=== PATIENT | female | born 1970 | race Caucasian/White ===

== ENCOUNTER 2022-12-31 09:54 | Outpatient (OUT) | payer BC, SELFPAY ==
--- NOTE | 2022-12-31 11:09 | MM_ITS ---
Patient: NICOLETTE GARZA Exam Date: 12/31/2022 : 1970 Gender:F Ordering : DR David Worthington . Admission #: [id number] Family : Order #: [id number] CLICK HERE TO VIEW EXAM RADIOLOGY REPORT PROCEDURE: MM TOMOSYNTHESIS SCREENING BI COMPARISON: MG MAMM ELROY SCRN W CAD DIG, 04/27/2015. INDICATIONS: Z12.31 Calculator Name NCI Breast Cancer Risk Assessment Tool 5 Year Breast Cancer Risk 0.60% Lifetime Breast Cancer Risk 6.00% Personal Breast Cancer No Personal Ovarian Cancer No Treatments None Family Cancers Mother with lung cancer at age 60. LOCATION: [facility] BREAST COMPOSITION: Heterogeneously dense,which may obscure small masses. FINDINGS: DIAGNOSTIC CATEGORY 2--BENIGN FINDING. NO CHANGE FROM COMPARISON. Scattered benign-appearing lymph nodes are present. RIGHT BREAST: No significant suspicious finding. LEFT BREAST: No significant suspicious finding. RECOMMENDATIONS: ROUTINE MAMMOGRAM AND CLINICAL EVALUATION IN 12 MONTHS. PLEASE NOTE: A NORMAL MAMMOGRAM DOES NOT EXCLUDE THE POSSIBILITY OF BREAST CANCER. A CLINICALLY SUSPICIOUS PALPABLE LUMP SHOULD BE BIOPSIED. Dictated by: David Beard MD on 12/31/2022 at 13:56 Approved by: David Beard MD on 12/31/2022 at 13:58
[2022-12-31 11:11] LABS: Basophils Absolute Auto 0.1 10^3/uL (0.0-0.1); Basophils Percent Auto 1.6 % (0.2-2.0); Eosinophils Absolute Auto 0.4 10^3/uL (0.0-0.7); Eosinophils Percent Auto 5.9 % (0.9-7.0); Hematocrit 36.7 % (36.0-48.0); Hemoglobin 12.3 g/dL (12.0-16.0); Immature Granulocytes Abs Auto 0.01 10^3/uL (0.00-0.03); Immature Granulocytes Pct Auto 0.1 % (0.0-0.5); Lymphocytes Absolute Auto 2.1 10^3/uL (1.2-3.8); Lymphocytes Percent Auto 29.1 % (20.5-60.0); Mean Corpuscular HGB Conc 33.5 g/dL (29.9-35.2); Mean Corpuscular Hemoglobin 31.7 pg (26.7-34.0); Mean Corpuscular Volume 94.6 fL (81.0-99.0); Mean Platelet Volume 10.7 fL (9.5-13.5); Neutrophils Absolute Auto 3.6 10^3/uL (1.4-6.5); Neutrophils Percent Auto 49.3 % (43.0-75.0); Platelet Count 364 10^3/uL (150-450); Red Blood Count 3.88 10^6/uL (4.20-5.40); Red Cell Distribution Width 15.5 % (11.0-15.0); White Blood Count 7.4 10^3/uL (4.0-11.0)
[2022-12-31 13:54] LABS: Estimated Average Glucose 103 mg/dL; Glycohemoglobin A1C 5.2 % (4.5-6.2)
[2022-12-31 15:31] LABS: Alanine Aminotransferase 16 U/L (14-59); Albumin Level 3.7 g/dL (3.4-5.0); Alkaline Phosphatase 63 U/L (46-116); Anion Gap 11.7; Aspartate Amino Transferase 15 U/L (15-37); BUN Creatinine Ratio 13.5; Bilirubin Total 0.3 mg/dL (0.2-1.0); Calcium 9.1 mg/dL (8.5-10.1); Carbon Dioxide 28.8 mmol/L (21.0-32.0); Chloride 108 mmol/L (98-107); Chol HDL Ratio 2.4; Cholesterol 165 mg/dL (<=200); Estimated GFR (African America >60 (>=60); Estimated GFR (Non-African Ame >60 (>=60); Globulin 3.6 g/dL; Glucose 86 mg/dL (74-106); HDL Cholesterol 68 mg/dL (40-60); Potassium 4.5 mmol/L (3.5-5.1); Sodium 144 mmol/L (136-145); Thyroid Stimulating Hormone 3.477 uIU/mL (0.358-3.740); Total Protein 7.3 g/dL (6.4-8.2); Triglycerides 62 mg/dL (<=150); VLDL CHOLESTEROL 12.4 mg/dL
== END 2022-12-31 09:55 | disposition home or self-care (01) ==
PROVIDERS: PCP Family Medicine; Visit Provider Family Medicine
DX: Z00.00 Encounter for general adult medical examination without abnormal findings (principal); Z12.31 Encounter for screening mammogram for malignant neoplasm of breast; Z80.1 Family history of malignant neoplasm of trachea, bronchus and lung
CPT/HCPCS: 36415; 77063; 77067; 80053; 80061; 83036; 84436; 84443; 84481; 85025

== ENCOUNTER 2023-12-25 10:39 | Outpatient (OUT) | payer BC, SELFPAY ==
[2023-12-25 11:11] LABS: Basophils Absolute Auto 0.1 10^3/uL (0.0-0.1); Basophils Percent Auto 1.4 % (0.2-2.0); Eosinophils Absolute Auto 0.3 10^3/uL (0.0-0.7); Eosinophils Percent Auto 5.8 % (0.9-7.0); Hematocrit 36.1 % (36.0-48.0); Hemoglobin 11.8 g/dL (12.0-16.0); Immature Granulocytes Abs Auto 0.02 10^3/uL (0.00-0.03); Immature Granulocytes Pct Auto 0.4 % (0.0-0.5); Lymphocytes Absolute Auto 2.2 10^3/uL (1.2-3.8); Lymphocytes Percent Auto 39.4 % (20.5-60.0); Mean Corpuscular HGB Conc 32.7 g/dL (29.9-35.2); Mean Corpuscular Hemoglobin 30.4 pg (26.7-34.0); Mean Platelet Volume 9.8 fL (9.5-13.5); Monocytes Absolute Auto 0.9 10^3/uL (0.3-0.8); Monocytes Percent Auto 14.9 % (1.7-12.0); Neutrophils Absolute Auto 2.2 10^3/uL (1.4-6.5); Neutrophils Percent Auto 38.1 % (43.0-75.0); Platelet Count 352 10^3/uL (150-450); Red Blood Count 3.88 10^6/uL (4.20-5.40); Red Cell Distribution Width 15.3 % (11.0-15.0); White Blood Count 5.7 10^3/uL (4.0-11.0)
[2023-12-25 12:04] LABS: Alanine Aminotransferase 14 U/L (14-59); Albumin Globulin Ratio 1.2; Albumin Level 3.8 g/dL (3.4-5.0); Alkaline Phosphatase 70 U/L (46-116); Anion Gap 9.9; Aspartate Amino Transferase 12 U/L (15-37); BUN Creatinine Ratio 15.4; Bilirubin Total 0.5 mg/dL (0.2-1.0); Calcium 9.6 mg/dL (8.5-10.1); Carbon Dioxide 29.6 mmol/L (21.0-32.0); Chloride 107 mmol/L (98-107); Chol HDL Ratio 2.8; Cholesterol 199 mg/dL (<=200); Estimated GFR (African America >60 (>=60); Estimated GFR (Non-African Ame >60 (>=60); Globulin 3.3 g/dL; Glucose 96 mg/dL (74-106); HDL Cholesterol 71 mg/dL (40-60); Potassium 4.5 mmol/L (3.5-5.1); Sodium 142 mmol/L (136-145); Thyroid Stimulating Hormone 2.791 uIU/mL (0.358-3.740); Total Protein 7.1 g/dL (6.4-8.2); Triglycerides 72 mg/dL (<=150); VLDL CHOLESTEROL 14.4 mg/dL
[2023-12-25 12:06] LABS: Estimated Average Glucose 103 mg/dL; Glycohemoglobin A1C 5.2 % (4.5-6.2)
== END 2023-12-25 10:40 | disposition home or self-care (01) ==
PROVIDERS: PCP Family Medicine; Visit Provider Family Medicine
DX: Z00.00 Encounter for general adult medical examination without abnormal findings (principal); R73.09 Other abnormal glucose; Z12.12 Encounter for screening for malignant neoplasm of rectum; D64.9 Anemia, unspecified
CPT/HCPCS: 36415; 80053; 80061; 83036; 83525; 83540; 84436; 84443; 84481; 85025

== ENCOUNTER 2024-03-01 13:36 | Outpatient (OUT) | payer BC, SELFPAY ==
--- OUTSIDE RECORDS SUMMARY | 2024-03-01 13:40 | XMS_ITS | CCD ---
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 Name Role Phone CK RODAS Attending Unavailable CK RODAS Consulting Unavailable ALONDRA, DR BANEGAS Primary Care Unavailable CK RODAS Admitting Unavailable KIKO DIEHL Consulting Unavailable ALONDRA, DR BANEGAS Attending Unavailable ALONDRA, DR BANEGAS Consulting Unavailable ALONDRA, DR BANEGAS Primary Care Unavailable ALONDRA, DR BANEGAS Admitting Unavailable NILL Jessica R Attending Bassam Madison Referring Unavailable Bassam Worthington Primary Care Physician Allergies Allergy Classification Reported Allergen(s) Allergy Type Date of Onset Reaction(s) Facility (1 source) No Known Medication Allergies; Translations: [No Known Medication Allergies] Propensity to adverse reactions (disorder) [facility] Repository (1 source) Adhesive bandage Propensity to adverse reactions to substance Eruption of skin (disorder) [facility] NEGATED: Highlighted row has been ruled out! (1 source) Drug allergy [facility] Medications Current Medications Medication Drug Class(es) Dates Sig (Normalized) Sig (Original) ferrous sulfate 325 mg oral tablet (1 source) Start: 12-24-2023 take 1 tablet by mouth once daily ferrous sulfate 325 mg Tab 325 mg = 1 tab(s), Oral, Daily, Refills(s) 0 Start Date: 12/24/23 Status: Ordered simvastatin 20 mg oral tablet (1 source) HMG-CoA Reductase Inhibitor Start: 01-15-2024 take 1 tablet by mouth once daily in the evening simvastatin 20 mg Tab 20 mg = 1 tab(s), Oral, qPM, Refills(s) 0 Start Date: 01/15/24 Status: Ordered Problems Active Problems Problem Classification Problem Date Documented Date Episodic/Chronic Asthma (1 source) Asthma 01-15-2024 Chronic Deficiency and other anemia (2 sources) Anemia; Translations: [Anemia, unspecified] Onset: 02-09-2024 Episodic Disorders of lipid metabolism (1 source) Hyperlipidemia 01-15-2024 Chronic Headache; including migraine (1 source) Migraine 01-15-2024 Chronic Other nutritional; endocrine; and metabolic disorders (1 source) Overweight 01-15-2024 Episodic Other nutritional; endocrine; and metabolic disorders (1 source) Overweight in adulthood with body mass index of 25 or more but less than 30 02-09-2024 Episodic Other screening for suspected conditions (not mental disorders or infectious disease) (2 sources) Encounter for screening mammogram for malignant neoplasm of breast; Translations: [Screening for malignant neoplasm of colon done] Onset: 12-20-2021 Episodic Spondylosis; intervertebral disc disorders; other back problems (1 source) Degeneration of cervical intervertebral disc 01-15-2024 Chronic Unclassified (1 source) PERSONAL HISTORY OF COVID-19; Translations: [PERSONAL HISTORY OF COVID-19] Onset: 09-24-2021 Unclassified (1 source) Patient encounter status 02-09-2024 Past or Other Problems Problem Classification Problem Date Documented Da te Episodic/Chronic Nonspecific chest pain (1 source) Chest pain, unspecified; Translations: [CHEST PAIN UNSPECIFIED] Onset: 09-24-2021 Episodic Other lower respiratory disease (3 sources) Pleurodynia; Translations: [PLEURODYNIA] Onset: 09-21-2021 Episodic Pleurisy; pneumothorax; pulmonary collapse (1 source) Pleurisy; Translations: [PLEURISY] Onset: 09-24-2021 Episodic Results Test Name Value Interpretation Reference Range Facility Ambulatory Visit Summaryon 1 04-10-2023 Ambulatory Visit Summary Ambulatory Visit Summary NICOLETTE GARZA :1970 Visit Date:02/09/2024 Ambulatory Visit Instructions Your Diagnosis Anemia Screening for malignant neoplasm of colon Your Care Team Attending Physician - Jessica FRY MD Primary Care Physician - Bassam Worthington MD Referring Physician - Bassam Worthington MD This Is Your Medications List Contact prescribing physician if questions or concerns ferrous sulfate (ferrous sulfate 325 mg Tab) simvastatin (simvastatin 20 mg Tab) Procedures Performed History of cervical spine surgery. Discharge Vitals Heart Rate (Peripheral) 72 Respiratory Rate 16 Blood Pressure 124/88 Height 170 cm Height 67 in Weight 86.6 kg Weight 190.52 lb BMI 29.97 Medications What How Much When Instructions Unchanged ferrous sulfate (ferrous sulfate 325 mg Tab) 1 Tablets By Mouth Every day Contact prescribing physician if questions or concerns Unchanged simvastatin (simvastatin 20 mg Tab) 1 Tablets By Mouth Once a day (in the evening) Contact prescribing physician if questions or concerns Allergies Adhesive Bandage (Rash) No Known Medication Allergies Problems Ongoing - Any problem that you are currently receiving treatment for. Anemia Asthma BMI 29.0-29.9,adult Disc disease, degenerative, cervical Hyperlipidemia Migraines Overweight Screening for malignant neoplasm of colon Patient Survey You may receive a survey via text or e-mail asking about your office visit. Please share your experience with us by completing your survey. We appreciate your feedback and thank you for choosing us for your care. Normal [facility] T4, T3U, FTI LABCORPon 12-14 Free Thyroxine Index 2.4 Normal 1.2-4.9 [facility] Comment on above: Performed By: #### T HYLC #### [facility] [address] [place] [address] Dr. Prateek Andre T3 Uptake 26 % Normal 24-39 [facility] Comment on above: Performed By: #### T HYLC #### [facility] [address] [place] [address] Dr. Prateek Andre T4 [Mass/Vol] 9.1 ug/dL Normal 4.5-12.0 [facility] Comment on above: Performed By: #### T HYLC #### [facility] [address] [place] [address] Dr. Prateek Andre CBC AUTO DIFFon 12-13-2021 BASO # 0.1 103/ul Normal 0.0-0.1 [facility] Comment on above: Performed By: #### C BC #### [facility] [address] [place] [address] Dr. Prateek Andre Basophils/100 WBC (Bld) 1.2 % Normal 0.2-2.0 [facility] Comment on above: Performed By: #### C BC #### [facility] [address] [place] [address] Dr. Prateek Andre EO # 0.2 103/ul Normal 0.0-0.7 [facility] Comment on above: Performed By: #### C BC #### [facility] [address] [place] [address] Dr. Prateek Andre Eosinophils/100 WBC (Bld) 3.5 % Normal 0.9-7.0 [facility] Comment on above: Performed By: #### C BC #### [facility] [address] [place] [address] Dr. Prateek Andre Erythrocyte distribution width (RBC) [Ratio] 15.5 % Critically high 11.0-15.0 [facility] Comment on above: Performed By: #### C BC #### [facility] [address] [place] [address] Dr. Prateek Andre Hematocrit (Bld) [Volume fraction] 38.5 % Normal 36.0-48.0 [facility] Comment on above: Performed By: #### C BC #### [facility] [address] [place] [address] Dr. Prateek Andre Hemoglobin (Bld) [Mass/Vol] 12.6 g/dL Normal 12.0-16.0 [facility] Comment on above: Performed By: #### C BC #### [facility] [address] [place] [address] Dr. Prateek Andre IG # 0.04 10e3/ul Critically high 0.00-0.03 [facility] Comment on above: Performed By: #### C BC #### [facility] [address] [place] [address] Dr. Prateek Andre IG % 0.6 % Critically high 0.0-0.5 [facility] Comment on above: Performed By: #### C BC #### [facility] [address] [place] [address] Dr. Prateek Andre LYMPH # 2.2 103/ul Normal 1.2-3.8 [facility] Comment on above: Performed By: #### C BC #### [facility] [address] [place] [address] Dr. Prateek Andre Lymphocytes/100 WBC (Bld) 33.5 % Normal 20.5-60.0 [facility] Comment on above: Performed By: #### C BC #### [facility] [address] [place] [address] Dr. Prateek Andre MANUAL DIFF REQ NO Normal [facility] Comment on above: Performed By: #### C BC #### [facility] [address] [place] [address] Dr. Prateek Andre MCH (RBC) [Entitic mass] 30.7 pg Normal 26.7-34.0 [facility] Comment on above: Performed By: #### C BC #### [facility] [address] [place] [address] Dr. Prateek Andre MCHC (RBC) [Mass/Vol] 32.7 g/dL Normal 29.9-35.2 [facility] Comment on above: Performed By: #### C BC #### [facility] [address] [place] [address] Dr. Prateek Andre MCV (RBC) [Entitic vol] 93.7 fL Normal 81.0-99.0 [facility] Comment on above: Performed By: #### C BC #### [facility] [address] [place] [address] Dr. Prateek Andre MONO # 0.9 103/ul Critically high 0.3-0.8 [facility] Comment on above: Performed By: #### C BC #### [facility] [address] [place] [address] Dr. Prateek Andre Monocytes/100 WBC (Bld) 13.6 % Critically high 1.7-12.0 [facility] Comment on above: Performed By: #### C BC #### [facility] [address] [place] [address] Dr. Prateek Andre NEUT # 3.2 103/ul Normal 1.4-6.5 [facility] Comment on above: Performed By: #### C BC #### [facility] [address] [place] [address] Dr. Prateek Andre Neutrophils/100 WBC (Bld) 47.6 % Normal 43.0-75.0 [facility] Comment on above: Performed By: #### C BC #### [facility] [address] [address] [address] Prateek Andre Platelet mean volume (Bld) [Entitic vol] 9.1 fL Critically low 9.5-13.5 [facility] Comment on above: Performed By: #### C BC #### [facility] [address] [address] [address] Prateek Andre PLT 423 103/ul Normal 150-450 [facility] Comment on above: Performed By: #### C BC #### [facility] [address] [address] [address] Prateek Andre RBC 4.11 106/ul Critically low 4.20-5.40 [facility] Comment on above: Performed By: #### C BC #### [facility] [address] [address] [address] Prateek Andre WBC 6.6 103/ul Normal 4.0-11.0 [facility] Comment on above: Performed By: #### C BC #### [facility] [address] [address] [address] Prateek Andre GLYCOHEMOGLOBIN A1Con 2021 ADA RECOMMENDATION SEE BELOW Normal [facility] Comment on above: Result Comment: ADA RECOMMENDED LIMIT 4.0 - 6.0 ADA THERAPEUTIC TARGET < 7.0 ACTION SUGGESTED > 7.0 Performed By: #### A 1C ####[facility] [id number] [address]Dr. Prateek Andre Glucose [Mass/Vol] 108 mg/dL Normal [facility] Comment on above: Performed By: #### A 1C ####[facility] [id number] [id number]. Prateek Andre HbA1c (Bld) [Mass fraction] 5.4 % Normal 4.5-6.2 [facility] Comment on above: Performed By: #### A 1C ####[facility] [id number] [address]Dr. Prateek Andre LIPID PROFILEon 12-13-2021 CHOL-HDL RATIO NORM SEE BELOW Normal [facility] Comment on above: Result Comment: 3.3 - 4.4 LOW RISK 4.4 - 7.1 AVERAGE RISK 7.1 - 11.0 MODERATE RISK >11.0 HIGH RISK Performed By: #### C MP, LIPID, TSH #### [facility] [address] [address] [address] Prateek Andre Cholesterol [Mass/Vol] 251 mg/dL Critically high <=200 [facility] Comment on above: Performed By: #### C MP, LIPID, TSH #### [facility] [address] [address] [address] Prateek Andre Cholesterol in HDL [Mass/Vol] 78 mg/dL Critically high 40-60 [facility] Comment on above: Performed By: #### C MP, LIPID, TSH #### [facility] [address] [address] [address] Prateek Andre Cholesterol in LDL [Mass/Vol] 165.2 mg/dL Normal [facility] Comment on above: Performed By: #### C MP, LIPID, TSH #### [facility] [address] [address] [address] Prateek Andre Cholesterol.total/Cho lesterol in HDL [Mass ratio] 3.2 {ratio} Normal [facility] Comment on above: Performed By: #### C MP, LIPID, TSH #### [facility] [address] [address] [address] Prateek Andre HDL NORMAL > or = 60 mg/dl - LO W CARDIOVASCULAR RISK <40 mg/dl - HIGH CARDIOVASCULAR RISK Normal [facility] Comment on above: Performed By: #### C MP, LIPID, TSH #### [facility] [address] [address] [address] Prateek Andre LDL CALC NORMAL SEE BELOW Normal [facility] Comment on above: Result Comment: <100 mg/dl OPTIMAL 100 - 129 mg/dl NEAR OR ABOVE OPTIMAL 130 - 159 mg/dl BORDERLINE HIGH 160 - 189 mg/dl HIGH >190 mg/dl VERY HIGH Performed By: #### C MP, LIPID, TSH #### [facility] [address] [place] [address] Dr. Prateek Andre Triglyceride [Mass/Vol] 39 mg/dL Normal <=150 [facility] Comment on above: Performed By: #### C MP, LIPID, TSH #### [facility] [address] [place] [address] Dr. Prateek Andre VLDL CALC 7.8 mg/dL Normal [facility] Comment on above: Performed By: #### C MP, LIPID, TSH #### [facility] [address] [address] [address] Prateek Andre PROF 14(COMP METB)on 022 Albumin [Mass/Vol] 4.0 g/dL Normal 3.4-5.0 [facility] Comment on above: Performed By: #### C MP, LIPID, TSH #### [facility] [address] [place] [address] Dr. Prateek Andre Albumin/Globulin [Mass ratio] 1.1 {ratio} Normal [facility] Comment on above: Performed By: #### C MP, LIPID, TSH #### [facility] [address] [place] [address] Dr. Prateek Andre ALP [Catalytic activity/Vol] 75 U/L Normal 46-116 [facility] Comment on above: Performed By: #### C MP, LIPID, TSH #### [facility] [address] [place] [address] Dr. Prateek Andre ALT [Catalytic activity/Vol] 15 U/L Normal 14-59 [facility] Comment on above: Performed By: #### C MP, LIPID, TSH #### [facility] [address] [place] [address] Dr. Praetek Andre Anion gap [Moles/Vol] 11.3 mmol/L Normal [facility] Comment on above: Performed By: #### C MP, LIPID, TSH #### [facility] [address] [place] [address] Dr. Prateek Andre AST [Catalytic activity/Vol] 15 U/L Normal 15-37 [facility] Comment on above: Performed By: #### C MP, LIPID, TSH #### [facility] [address] [address] [address] Prateek Andre Bilirubin [Mass/Vol] 0.5 mg/dL Normal 0.2-1.0 [facility] Comment on above: Performed By: #### C MP, LIPID, TSH #### [facility] [address] [address] [address] Prateek Andre Calcium [Mass/Vol] 9.3 mg/dL Normal 8.5-10.1 [facility] Comment on above: Performed By: #### C MP, LIPID, TSH #### [facility] [address] [address] [address] Prateek Andre Chloride [Moles/Vol] 106 mmol/L Normal 98-107 [facility] Comment on above: Performed By: #### C MP, LIPID, TSH #### [facility] [address] [place] [address] Dr. Prateek Andre CO2 [Moles/Vol] 29.2 mmol/L Normal 21.0-32.0 [facility] Comment on above: Performed By: #### C MP, LIPID, TSH #### [facility] [address] [address] [address] Prateek Andre Creatinine [Mass/Vol] 0.77 mg/dL Normal 0.55-1.02 [facility] Comment on above: Performed By: #### C MP, LIPID, TSH #### [facility] [address] [place] [address] Dr. Prateek Andre EGFR-AF GRENADIAN >60 Normal >=60 [facility] Comment on above: Performed By: #### C MP, LIPID, TSH #### [facility] [address] [place] [address] Dr. Prateek Andre EGFR-NON AF GRENADIAN >60 Normal >=60 [facility] Comment on above: Performed By: #### C MP, LIPID, TSH #### [facility] [address] [address] [address] Prateek Andre Globulin (S) [Mass/Vol] 3.6 g/dL Normal [facility] Comment on above: Performed By: #### C MP, LIPID, TSH #### [facility] [address] [address] [address] Prateek Andre Glucose [Mass/Vol] 90 mg/dL Normal 74-106 [facility] Comment on above: Performed By: #### C MP, LIPID, TSH #### [facility] [address] [place] [address] Dr. Prateek Andre Potassium [Moles/Vol] 4.5 mmol/L Normal 3.5-5.1 [facility] Comment on above: Performed By: #### C MP, LIPID, TSH #### [facility] [address] [place] [address] Dr. Prateek Andre Protein [Mass/Vol] 7.6 g/dL Normal 6.4-8.2 [facility] Comment on above: Performed By: #### C MP, LIPID, TSH #### [facility] [address] [place] [address] Dr. Prateek Andre Sodium [Moles/Vol] 142 mmol/L Normal 136-145 [facility] Comment on above: Performed By: #### C MP, LIPID, TSH #### [facility] [address] [place] [address] Dr. Prateek Andre Urea nitrogen [Mass/Vol] 13.0 mg/dL Normal 7.0-18.0 [facility] Comment on above: Performed By: #### C MP, LIPID, TSH #### [facility] [address] [place] [address] Dr. Prateek Andre Urea nitrogen/Creatinine [Mass ratio] 16.9 mg/mg Normal [facility] Comment on above: Performed By: #### C MP, LIPID, TSH #### [facility] [address] [place] [address] Dr. Prateek Andre TSHon 12-13-2021 TSH 1.393 uIU/mL Normal 0.358-3.740 [facility] Comment on above: Performed By: #### C MP, LIPID, TSH #### [facility] [address] [place] [address] Dr. Prateek Andre CBC AUTO DIFFon 09-21-2021 BASO # 0.0 103/ul Normal 0.0-0.1 [facility] Comment on above: Performed By: #### C BC #### [facility] [address] [place] [address] Dr. Prateek Andre Basophils/100 WBC (Bld) 0.3 % Normal 0.2-2.0 [facility] Comment on above: Performed By: #### C BC #### [facility] [address] [place] [address] Dr. Prateek Andre EO # 0.0 103/ul Normal 0.0-0.7 [facility] Comment on above: Performed By: #### C BC #### [facility] [address] [place] [address] Dr. Prateek Andre Eosinophils/100 WBC (Bld) 0.0 % Critically low 0.9-7.0 [facility] Comment on above: Performed By: #### C BC #### [facility] [address] [place] [address] Dr. Prateek Andre Erythrocyte distribution width (RBC) [Ratio] 14.6 % Normal 11.0-15.0 [facility] Comment on above: Performed By: #### C BC #### [facility] [address] [place] [address] Dr. Prateek Andre Hematocrit (Bld) [Volume fraction] 40.7 % Normal 36.0-48.0 [facility] Comment on above: Performed By: #### C BC #### [facility] [address] [place] [address] Dr. Prateek Andre Hemoglobin (Bld) [Mass/Vol] 12.9 g/dL Normal 12.0-16.0 [facility] Comment on above: Performed By: #### C BC #### [facility] [address] [place] [address] Dr. Prateek Andre IG # 0.07 10e3/ul Critically high 0.00-0.03 [facility] Comment on above: Performed By: #### C BC #### [facility] [address] [place] [address] Dr. Prateek Andre IG % 0.6 % Critically high 0.0-0.5 [facility] Comment on above: Performed By: #### C BC #### [facility] [address] [place] [address] Dr. Prateek Andre LYMPH # 1.2 103/ul Normal 1.2-3.8 [facility] Comment on above: Performed By: #### C BC #### [facility] [address] [place] [address] Dr. Prateek Andre Lymphocytes/100 WBC (Bld) 10.2 % Critically low 20.5-60.0 [facility] Comment on above: Performed By: #### C BC #### [facility] [address] [place] [address] Dr. Prateek Andre MANUAL DIFF REQ NO Normal [facility] Comment on above: Performed By: #### C BC #### [facility] [address] [place] [address] Dr. Prateek Andre MCH (RBC) [Entitic mass] 29.5 pg Normal 26.7-34.0 [facility] Comment on above: Performed By: #### C BC #### [facility] [address] [place] [address] Dr. Prateek Andre MCHC (RBC) [Mass/Vol] 31.7 g/dL Normal 29.9-35.2 [facility] Comment on above: Performed By: #### C BC #### [facility] [address] [place] [address] Dr. Prateek Andre MCV (RBC) [Entitic vol] 92.9 fL Normal 81.0-99.0 [facility] Comment on above: Performed By: #### C BC #### [facility] [address] [place] [address] Dr. Prateek Andre MONO # 0.9 103/ul Critically high 0.3-0.8 [facility] Comment on above: Performed By: #### C BC #### [facility] [address] [place] [address] Dr. Prateek Andre Monocytes/100 WBC (Bld) 8.1 % Normal 1.7-12.0 [facility] Comment on above: Performed By: #### C BC #### [facility] [address] [place] [address] Dr. Prateek Andre NEUT # 9.4 103/ul Critically high 1.4-6.5 [facility] Comment on above: Performed By: #### C BC #### [facility] [address] [place] [address] Dr. Prateek Andre Neutrophils/100 WBC (Bld) 80.8 % Critically high 43.0-75.0 [facility] Comment on above: Performed By: #### C BC #### [facility] [facility] [address] [place] [address] Dr. Prateek Andre Platelet mean volume (Bld) [Entitic vol] 9.7 fL Normal 9.5-13.5 [facility] Comment on above: Performed By: #### C BC #### [facility] [address] [place] [address] Dr. Prateek Andre PLT 390 103/ul Normal 150-450 [facility] Comment on above: Performed By: #### C BC #### [facility] [address] [place] [address] Dr. Prateek Andre RBC 4.38 106/ul Normal 4.20-5.40 [facility] Comment on above: Performed By: #### C BC #### [facility] [address] [place] [address] Dr. Prateek Andre WBC 11.6 103/ul Critically high 4.0-11.0 [facility] Comment on above: Performed By: #### C BC #### [facility] [address] [place] [address] Dr. Prateek Andre CTA CHEST WO W CONon 022 CTA CHEST WO W CON EXAMINATION: CTA MATHEUS ST WO W CON, 09/21/2021 HISTORY: CHEST PAIN, UNSPECIFIED COMPARISON: None. TECHNIQUE: CT angiography of the chest following the administration of 75 mL Omnipaque 350 iodine intravenous contrast. Coronal and sagittal MIP (maximum intensity projection) images were performed. 3-D reconstructions performed on separate workstation. Dose reduction techniques were achieved by using automated exposure control and/or adjustment of mA and/or kV according to patient size and/or use of iterative reconstruction technique. FINDINGS: The thoracic aorta and the great vessels are patent without obvious aneurysm or dissection. Mild limitation of the aortic root due to pulsation artifacts. The main pulmonary artery and the right and left lobar pulmonary arteries are patent without filling defect. The esophagus is nondilated. No pleural or pericardial effusion. No lymph node enlargement in the axilla, mediastinum or hilar region. The lung windows demonstrate no focal consolidation or infiltrate. Minimal scarring/atelectasis in the lingula and right middle lobe. The central tracheobronchial airways are patent. The bone windows demonstrate no focal aggressive lesion. Mild osteopenia. Limited scans through the upper abdomen demonstrate probable adenoma in the left adrenal gland. The lower end of the spleen demonstrates a 1 cm rounded density which could represent a cyst or hemangioma. IMPRESSION: 1. Patent thoracic aorta and great vessels without obvious aneurysm or dissection. 2. No focal consolidation or pleural effusion. Electronically authenticated by: KIKO DIEHL Date: 2021-09-21 12:55 Normal [facility] ER URINE PROFILEon 2 Bilirubin Ql (U) Negative Normal NEGATIVE [facility] Comment on above: Performed By: #### U MICRO, ERUR #### [facility] [address] [place] [address] Dr. Prateek Andre Clarity (U) CLEAR Normal CLEAR [facility] Comment on above: Performed By: #### U MICRO, ERUR #### [facility] [address] [place] [address] Dr. Prateek Andre Color (U) LT. YELLOW Normal YELLOW [facility] Comment on above: Performed By: #### U MICRO, ERUR #### [facility] [address] [place] [address] Dr. Prateek GONSALVES A micrscopic examination will be performed if indicated. Normal [facility] Comment on above: Performed By: #### U MICRO, ERUR #### [facility] [address] [place] [address] Dr. Prateek Andre Glucose Ql (U) Negative Normal NEGATIVE [facility] Comment on above: Performed By: #### U MICRO, ERUR #### [facility] [address] [address] [address] Prateek Andre Hemoglobin Ql (U) TRACE-INTACT Abnormal NEGATIVE [facility] Comment on above: Performed By: #### U MICRO, ERUR #### [facility] [address] [address] [address] Prateek Andre Ketones Ql (U) Negative Normal NEGATIVE [facility] Comment on above: Performed By: #### U MICRO, ERUR #### [facility] [address] [place] [address] Dr. Prateek Andre LEUKOCYTES Negative Normal NEGATIVE [facility] Comment on above: Performed By: #### U MICRO, ERUR #### [facility] [address] [place] [address] Dr. Prateek nAdre Nitrite Ql (U) Negative Normal NEGATIVE [facility] Comment on above: Performed By: #### U MICRO, ERUR #### [facility] [address] [place] [address] Dr. Prateek Andre pH (U) 6.0 [pH] Normal 5-9 [facility] Comment on above: Performed By: #### U MICRO, ERUR #### [facility] [address] [place] [address] Dr. Prateek Andre SPEC GRAVITY 1.005 Normal 1.005-<=1.025 [facility] Comment on above: Performed By: #### U MICRO, ERUR #### [facility] [address] [place] [address] Dr. Prateek Andre UA PROTEIN Negative Normal NEGATIVE/ TRACE [facility] Comment on above: Performed By: #### U MICRO, ERUR #### [facility] [address] [place] [address] Dr. Prateek Andre UR MICRO IND INDICATED Normal [facility] Comment on above: Performed By: #### U MICRO, ERUR #### [facility] [address] [place] [address] Dr. Prateek Andre Urobilinogen Qn (U) 0.2 {Garth'U}/dL Normal 0.2 - 1. 0 [facility] Comment on above: Performed By: #### U MICRO, ERUR #### [facility] [address] [address] [address] Prateek Andre PROF 14(COMP METB)on 022 Albumin [Mass/Vol] 4.2 g/dL Normal 3.4-5.0 [facility] Comment on above: Performed By: #### C PACO, HSTROPN ####[facility] [address] [address]Dr. Prateek Andre Albumin/Globulin [Mass ratio] 1.0 {ratio} Normal [facility] Comment on above: Performed By: #### C PACO, HSTROPN ####[facility] [address] [address]Dr. Prateek Andre ALP [Catalytic activity/Vol] 96 U/L Normal 46-116 [facility] Comment on above: Performed By: #### C PACO, HSTROPN ####[facility] [address] [address]Dr. Prateek Andre ALT [Catalytic activity/Vol] 14 U/L Normal 14-59 [facility] Comment on above: Performed By: #### C PACO, HSTROPN ####[facility] [address] [address]Dr. Prateek Andre Anion gap [Moles/Vol] 14.0 mmol/L Normal [facility] Comment on above: Performed By: #### C PACO, HSTROPN ####[facility] [address] [address]Dr. Prateek Andre AST [Catalytic activity/Vol] 13 U/L Critically low 15-37 [facility] Comment on above: Performed By: #### C PACO, HSTROPN ####[facility] [address] [address]Dr. Prateek Andre Bilirubin [Mass/Vol] 0.3 mg/dL Normal 0.2-1.0 [facility] Comment on above: Performed By: #### C MP, HSTROPN ####[facility] [address] [address]Dr. Prateek Andre Calcium [Mass/Vol] 9.8 mg/dL Normal 8.5-10.1 [facility] Comment on above: Performed By: #### C MP, HSTROPN ####[facility] [address] [address]Dr. Prateek Andre Chloride [Moles/Vol] 106 mmol/L Normal 98-107 [facility] Comment on above: Performed By: #### C MP, HSTROPN ####[facility] [address] [address]Dr. Prateek Andre CO2 [Moles/Vol] 23.7 mmol/L Normal 21.0-32.0 [facility] Comment on above: Performed By: #### C PACO, HSTROPN ####[facility] [address] [place], [place] [address]Dr. Prateek Andre Creatinine [Mass/Vol] 0.86 mg/dL Normal 0.55-1.02 [facility] Comment on above: Performed By: #### C PACO, HSTROPN ####[facility] [address] [place], [place] [address]Dr. Prateek Andre EGFR-AF GRENADIAN >60 Normal >=60 [facility] Comment on above: Performed By: #### C MP, HSTROPN ####[facility] [address] [place], [place] [address]Dr. Prateek Andre EGFR-NON AF GRENADIAN >60 Normal >=60 [facility] Comment on above: Performed By: #### C MP, HSTROPN ####[facility] [address] [place], [place] [address]Dr. Prateek Andre Globulin (S) [Mass/Vol] 4.2 g/dL Normal [facility] Comment on above: Performed By: #### C MP, HSTROPN ####[facility] [address] [place], [place] [address]Dr. Prateek Andre Glucose [Mass/Vol] 117 mg/dL Critically high 74-[address] [facility] Comment on above: Performed By: #### C MP, HSTROPN ####[facility] [address] [address]Dr. Prateek Andre Potassium [Moles/Vol] 3.7 mmol/L Normal 3.5-5.1 [facility] Comment on above: Performed By: #### C MP, HSTROPN ####[facility] [address] [address]Dr. Prateek Andre Protein [Mass/Vol] 8.4 g/dL Critically high 6.4-8.[address] [facility] Comment on above: Performed By: #### C MP, HSTROPN ####[facility] [address] [address]Dr. Prateek Andre Sodium [Moles/Vol] 140 mmol/L Normal 136-145 [facility] Comment on above: Performed By: #### C MP, HSTROPN ####[facility] [address] [address]Dr. Prateek Andre Urea nitrogen [Mass/Vol] 14.0 mg/dL Normal 7.0-18.0 [facility] Comment on above: Performed By: #### C MP, HSTROPN ####[facility] [address] [address]Dr. Prateek Andre Urea nitrogen/Creatinine [Mass ratio] 16.3 mg/mg Normal [facility] Comment on above: Performed By: #### C MP, HSTROPN ####[facility] [address] [address]Dr. Prateek Andre TROPONIN, HIGH SENSITIVITYon 09-21-2021 HSTROP 5.3 pg/mL Normal 4.0-51.3 [facility] Comment on above: Result Comment: CUT- OFF POINTS HAVE BEEN ESTABLISHED BASED ON THE FOURTH UNIVERSAL DEFINITIONS OF MYOCARDIAL INFARCTION. THE UPPER REFERENCE LIMIT (URL) OF TROPONIN, DEFINED THE 99TH PERCENTILE OF cTnI DISTRIBUTION IN A REFERENCE POPULATION, HAS BEEN CONFIRMED THE DECISION THRESHOLD FOR DC DIAGNOSIS. Performed By: #### C MP, HSTROPN #### [facility] [address] [address] [address] Prateek Andre URINE MICROSCOPIC ONLYon BACTERIA NONE SEEN Normal NONE SEEN [facility] Comment on above: Performed By: #### U MICRO, ERUR #### [facility] [address] [place] [address] Dr. Prateek Andre Bacteria identified Cx Nom (U) NOT INDICATED Normal [facility] Comment on above: Performed By: #### U MICRO, ERUR #### [facility] [address] [place] [address] Dr. Prateek Andre CAST NONE SEEN Normal NONE SEEN [facility] Comment on above: Performed By: #### U MICRO, ERUR #### [facility] [address] [place] [address] Dr. Prateek Andre Crystals LM Nom (Urine sed) NONE SEEN Normal NONE SEEN [facility] Comment on above: Performed By: #### U MICRO, ERUR #### [facility] [address] [place] [address] Dr. Prateek Andre Epithelial cells LM Ql (Urine sed) FEW Abnormal NONE SEEN /RARE [facility] Comment on above: Performed By: #### U MICRO, ERUR #### [facility] [address] [place] [address] Dr. Prateek Andre MUCOUS NONE SEEN Normal NONE SEEN [facility] Comment on above: Performed By: #### U MICRO, ERUR #### [facility] [address] [place] [address] Dr. Prateek Andre RBC 0-2 Normal 0-2 [facility] Comment on above: Performed By: #### U MICRO, ERUR #### [facility] [address] [place] [address] Dr. Prateek Andre WBC NONE SEEN Normal NONE SEEN [facility] Comment on above: Performed By: #### U MICRO, ERUR #### [facility] [address] [place] [address] Dr. Prateek Andre CERVICAL SP AP&LT OR 2-3 VWS on 01-12-2022 CERVICAL SP AP&LT OR 2-3 VWS STUDY: CERVICAL SP AP LT OR 2-3 VWS; 04/17/2021 10:28 am INDICATION: PAIN. COMPARISON: 03/06/2021 ACCESSION NUMBER(S): [id number] ORDERING CLINICIAN: Fuentes Moore FINDINGS: Anterior fusion hardware with metallic interbody grafts from C3-C7 unchanged. No new fracture, subluxation, or disc height loss. Trace anterolisthesis C2-3. Degenerative changes appear similar to prior exam. IMPRESSION: Unchanged postoperative appearance of the cervical spine. Normal [facility] CERVICAL SP AP&LT OR 2-3 VWS on 03-06-2021 CERVICAL SP AP&LT OR 2-3 VWS STUDY: CERVICAL SP AP LT OR 2-3 VWS; 03/06/2021 10:20 am INDICATION: PAIN. COMPARISON: 02/15/2021 ACCESSION NUMBER(S): [id number] ORDERING CLINICIAN: Fuentes Moore TECHNIQUE: Weightbearing AP and lateral images of the cervical spine were obtained. FINDINGS: The patient is status post anterior fusion from C3-C7. There are disc space grafts from C3-C7. The hardware appears intact. The prevertebral soft tissues are unremarkable. COMPARISON OF FINDINGS: The spine is similar to the prior exam. IMPRESSION: Status post anterior fusion. No acute findings. Normal [facility] CERVICAL SP AP&LAT OR 2-3 VW Son 02-15-2021 CERVICAL SP AP&LAT OR 2-3 VWS STUDY: CERVICAL SP AP LAT OR 2-3 VWS; 02/15/2021 10:06 am INDICATION: DISC HERNIATION. COMPARISON: 01/28/2021 ACCESSION NUMBER(S): [id number] ORDERING CLINICIAN: Fuentes Moore TECHNIQUE: AP and lateral images of cervical spine were obtained FINDINGS: The patient is status post anterior fusion from C3-C7. There are metallic grafts between C3-C7. The hardware appears intact. COMPARISON OF FINDINGS: The appearance and alignment is similar to the prior exam. IMPRESSION: Status post anterior fusion and disc space grafts. No obvious acute finding. Normal [facility] BASIC MET PANELon 01-30-2021 Anion gap [Moles/Vol] 7 mmol/L Normal 6-18 [facility] Comment on above: Order Comment: CONSE RVATION Performed By: #### L 500.53157, L500.43881 #### Test performed at: [address] [address] Calcium [Mass/Vol] 9.1 mg/dL Normal 8.5-10.1 [facility] Comment on above: Order Comment: CONSE RVATION Performed By: #### L 500.48722, L500.97034 #### Test performed at: [address] [address] Chloride [Moles/Vol] 100 mmol/L Normal 98-107 [facility] Comment on above: Order Comment: CONSE RVATION Performed By: #### L 500.79614, L500.61816 #### Test performed at: [address] [address] CO2 [Moles/Vol] 31 mmol/L Normal 21-32 [facility] Comment on above: Order Comment: CONSE RVATION Performed By: #### L 500.92844, L500.80912 #### Test performed at: [address] [address] Creatinine [Mass/Vol] 0.672 mg/dL Normal 0.550-1.020 [facility] Comment on above: Order Comment: CONSE RVATION Performed By: #### L 500.18978, L500.33059 #### Test performed at: [address] [address] Glucose [Mass/Vol] 98 mg/dL Normal 70-99 [facility] Comment on above: Order Comment: CONSE RVATION Result Comment: Fast ing GLUCOSE reference range has been updated per (ADA) [place] [employer]'s recommendation. 06/29/2018 Performed By: #### L 500.17555, L500.73947 #### Test performed at: [address] [address] OSM 278 mosm/kg Normal 270-300 [facility] Comment on above: Order Comment: CONSE RVATION Performed By: #### L 500.09850, L500.84360 #### Test performed at: [address] [address] Potassium [Moles/Vol] 3.9 mmol/L Normal 3.5-5.1 [facility] Comment on above: Order Comment: CONSE RVATION Performed By: #### L 500.85295, L500.38684 #### Test performed at: [address] [address] Sodium [Moles/Vol] 134 mmol/L Low 136-145 [facility] Comment on above: Order Comment: CONSE RVATION Performed By: #### L 500.27252, L500.04384 #### Test performed at: [address] [address] Urea nitrogen [Mass/Vol] 14 mg/dL Normal 7-18 [facility] Comment on above: Order Comment: CONSE RVATION Performed By: #### L 500.40691, L500.26011 #### Test performed at: [address] [address] CBC W/DIFFon 01-30-2021 BASO ABS 0.0 K/uL Normal 0.0-0.2 [facility] Comment on above: Order Comment: CONSE RVATION Performed By: #### L 500.63834, L500.76874 #### Test performed at: [address] [address] Basophils/100 WBC (Bld) 0.1 % Normal [facility] Comment on above: Order Comment: CONSE RVATION Performed By: #### L 500.07185, L500.02788 #### Test performed at: [address] [address] EOS ABS 0.0 K/uL Normal 0.0-0.5 [facility] Comment on above: Order Comment: CONSE RVATION Performed By: #### L 500.60066, L500.39473 #### Test performed at: [address] [address] Eosinophils/100 WBC (Bld) 0.1 % Normal [facility] Comment on above: Order Comment: CONSE RVATION Performed By: #### L 500.42936, L500.76786 #### Test performed at: [address] [address] IG % 0.3 % Normal [facility] Comment on above: Order Comment: CONSE RVATION Performed By: #### L 500.37372, L500.55660 #### Test performed at: [address] [address] IG ABS 0.05 K/uL Normal 0-0.05 [facility] Comment on above: Order Comment: CONSE RVATION Performed By: #### L 500.90056, L500.68440 #### Test performed at: [address] [address] Lymphocytes (Bld) [#/Vol] 3.5 10*3/uL Normal 1.2-3.5 [facility] Comment on above: Order Comment: CONSE RVATION Performed By: #### L 500.75775, L500.41165 #### Test performed at: [address] [address] Lymphocytes/100 WBC (Bld) 24.4 % Normal [facility] Comment on above: Order Comment: CONSE RVATION Performed By: #### L 500.38985, L500.67492 #### Test performed at: [address] [address] MONO ABS 2.4 K/uL High 0.0-1.0 [facility] Comment on above: Order Comment: CONSE RVATION Performed By: #### L 500.08087, L500.42989 #### Test performed at: [address] [address] Monocytes/100 WBC (Bld) 16.8 % Normal [facility] Comment on above: Order Comment: CONSE RVATION Performed By: #### L 500.56435, L500.12905 #### Test performed at: [address] [address] NEUTROPHIL ABS 8.4 K/uL High 1.4-6.6 [facility] Comment on above: Order Comment: CONSE RVATION Performed By: #### L 500.11117, L500.51273 #### Test performed at: [address] [address] Neutrophils/100 WBC (Bld) 58.3 % Normal [facility] Comment on above: Order Comment: CONSE RVATION Performed By: #### L 500.39005, L500.97390 #### Test performed at: [address] [address] SCREEN REQUIRED YES Normal [facility] Comment on above: Order Comment: CONSE RVATION Result Comment: Lucero pheral Smear reviewed by technologist. Performed By: #### L 500.79217, L500.87721 #### Test performed at: [address] [address] Erythrocyte distribution width (RBC) [Ratio] 14.8 % High 11.5-14.5 [facility] Comment on above: Order Comment: CONSE RVATION Performed By: #### L 500.97721, L500.72140 #### Test performed at: [address] [address] Hematocrit (Bld) [Volume fraction] 30.3 % Low 36.0-48.0 [facility] Comment on above: Order Comment: CONSE RVATION Performed By: #### L 500.55361, L500.70468 #### Test performed at: [address] [address] Hemoglobin (Bld) [Mass/Vol] 10.0 g/dL Low 12.0-15.0 [facility] Comment on above: Order Comment: CONSE RVATION Performed By: #### L 500.52297, L500.15492 #### Test performed at: [address] [address] MCH (RBC) [Entitic mass] 30.2 pg Normal 25.4-34.6 [facility] Comment on above: Order Comment: CONSE RVATION Performed By: #### L 500.92822, L500.08805 #### Test performed at: [address] [address] MCHC (RBC) [Mass/Vol] 33.0 g/dL Normal 31.5-36.5 [facility] Comment on above: Order Comment: CONSE RVATION Performed By: #### L 500.53198, L500.59529 #### Test performed at: [address] [address] MCV (RBC) [Entitic vol] 91.5 fL Normal 79.0-98.0 [facility] Comment on above: Order Comment: CONSE RVATION Performed By: #### L 500.75163, L500.61789 #### Test performed at: [address] [address] NRBC # 0.000 K/uL Normal 0-0.012 [facility] Comment on above: Order Comment: CONSE RVATION Performed By: #### L 500.53713, L500.64585 #### Test performed at: [place] [id number] NRBC % 0.0 /100 WBC Normal 0-0.2 [facility] Comment on above: Order Comment: CONSE RVATION Performed By: #### L 500.02350, L500.71087 #### Test performed at: [address] [address] Platelet mean volume (Bld) [Entitic vol] 9.9 fL Normal 8.7-12.4 [facility] Comment on above: Order Comment: CONSE RVATION Performed By: #### L 500.14298, L500.12394 #### Test performed at: [address] [address] Platelets (Bld) [#/Vol] 294 10*3/uL Normal 140-440 [facility] Comment on above: Order Comment: CONSE RVATION Performed By: #### L 500.54997, L500.90737 #### Test performed at: [place] [id number] RBC (Bld) [#/Vol] 3.31 10*6/uL Low 3.5-5.5 [facility] Comment on above: Order Comment: CONSE RVATION Performed By: #### L 500.26638, L500.54355 #### Test performed at: [address] [address] WBC (Bld) [#/Vol] 14.4 10*3/uL High 3.9-11.0 [facility] Comment on above: Order Comment: CONSE RVATION Performed By: #### L 500.16607, L500.00164 #### Test performed at: [place] [id number] Discharge CCD Assessmenton Discharge CCD Assessment [facility] Patient: NICOLETTE GARZA [address] [place], [place] [id number] MR#: [id number] DISCHARGE CCD ASSESSMENT : 74 Service Date: 01/30/21 1503 Discharge CCD Assessment Assessment Patient discharged home to continue pain control, wound care, and exercises. Electronically Signed eSign Date and Time Celio Patton 01/30/21 1504 Fuentes Moore MD Normal [facility] EST. CREAT CLRon 01-30-2021 EST. CREAT CLR 116.369 ML/MIN Normal [facility] Comment on above: Order Comment: CONSE RVATION Result Comment: This result is an ESTIMATED blood creatinine clearance value which is derived from the patient age, sex, weight, and previous blood creatinine result. Performed By: #### L 500.28887, L500.21526 #### Test performed at: [place] [address] GFR ESTIMATEon 01-30-2021 IF AMER > 60 Normal > 60 [facility] Comment on above: Order Comment: CONSE RVATION Result Comment: eGFR (Estimated GFR) Units of measure:mL/min/1.73 meters sq. *CALCULATION REVISED 01/23/2015;IDMS-traceable MDRD equation eGFR is derived from the reexpressed MDRD Study equation using the following parameters: serum creatinine, age, gender and race. An eGFR<60 mL/min/1.73m2 for >3 months is consistent with chronic kidney disease. Refer to KDOQI guidelines for clinical interpretation. Performed By: #### L 500.84203, L500.26862 #### Test performed at: [place] [address] IF non-AFR AMER > 60 Normal > 60 [facility] Comment on above: Order Comment: CONSE RVATION Performed By: #### L 500.10871, L500.23189 #### Test performed at: [place] [address] Internal Med Progress Noteon 01-30-2021 Internal Med Progress Note [facility] Patient: NICOLETTE GARZA [address] [place] [address] MR#: [id number] PROGRESS NOTE - Internal Medicine : 72 Service Date: 01/30/21 040 Subjective Primary Resident: Ameena Campos After Hours Call: [phone] ICU Resident Summary of Stay Ms. Garza is a 50 yo F with a PMH of asthma who is POD 2 S/P ACDF C3-C7. IM was consulted for postop medical management and pt was admitted to ICU for monitoring. The surgery was performed under GA, she tolerated it well and there were no reported complications. EBL was 100ml. Her barlow has been removed and there is scant amount of serosanguineous fluid in the KAUR drain. Patient complains of post-op neck pain which improves with medication. She is clinically AND vitally stable. Events since last encounter No acute events reported Subjective Complains of anterior neck pain 8-10 in severity, neck stiffness and lower chest pain worse with respiration. She denies any cough, SOB, N/V/D, no bowel movements or flatus yet. No leg pain or swelling. Petechiae noted to left hand has improved. Also reports slight improvement in numbness to right hand. Other Systems A 10 point review of systems was conducted and is negative unless otherwise stated. Objective Exam Vitals and I/O Vital Signs Verdana 4d Result Date Time Pulse Ox 96 01/31 428 B/P 135/77 01/31 428 Temp 37.2 01/31 428 Pulse 87 01/31 428 Resp 14 01/31 428 O2 Delivery NASAL CANNULA 01/28 1530 O2 Flow Rate 3 01/28 1530 Intake AND Output Verdana 4d 01/30 2300 01/29 2300 Intake Total 425 2452 Output Total 1800 2527 Balance -1375 -75 Intake, IV 1552 Oral 425 900 utput, 2 rainage Output, Urine 1800 2525 General Appearance Alert, Oriented X3, Cooperative, No Acute Distress HEENT Atraumatic, Mucous Membr. moist/pink Lungs Clear to Auscultation, Decreased air entry bilaterally Neck Supple, Surgical dressing clean and dry. No significant anterior neck tenderness Cardiovascular Regular Rate, Normal S1, Normal S2, No Murmurs Abdomen Normal Bowel Sounds, Soft, No Tenderness, No Hepatospenomegaly, No Masses Extremities No Edema, No Tenderness/Swelling Skin Erythema and petechiae to dorsum of left hand, improved compared to yesterday Neurological Normal Gait, Strength at 5/5 X4 Ext, Cranial Nerves 3-12 NL, Decreased sensation to upper extremities bilaterally, R>L Assessment/Plan-Interna l Med Problem List 1. S/P cervical spinal fusion 2. Asthma Med Reasons/Tx for Con't stay Recovery from ACDF Assessment #POD 2 s/p ACDF C3-C7 -The surgery was done under GA -No intraoperative or post operative complications -EBL was 100ml -Complains of anterior neck pain and chest pain -Using incentive spirometer -VSS -PE: Neck:cervical collar in situ, KAUR drain with small amount of serosanguinous discharge, dressing is dry and intact Resp: Air entry equal bilaterally. No crackles or wheezes CVS: S1 and S2 heard. No murmurs, rubs or gallops. Abd: benign. 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 No motor deficits. Plan: -IV fluids RL 100cc/ hour -PT/OT on board -Completed course of ancef and decadron -Zofran prn for nausea -Pepcid 40mg bid #Petechial lesion to left hand -Possible reaction to IV medication -Improved compared to yesterday -Apply ice to area and monitor #Normocytic anemia -Recommend iron studies as out-patient #Pain management: - Percocet, Tylenol, soma, cepacol #Bowel care: -Mg hydroxide, Colace, Bisacodyl #Asthma: -Off medications -No SOB, no wheezes #DVT prophylaxis: -PCD #Disposition -Possible discharge today Be sure to note changes Be sure to note changes DVT Prophylaxis PCD *Attending Attestation Attending Attestation Attending Attestation All pertinent elements of history and physical exam were confirmed by me. Agree with above documentation. patient is medically stable for dc Electronically Signed eSign Date and Time Lexx Campos Ameed RES Hause-Wardega, Katarzyna MD 01/30/21 1313 Normal [facility] Orthopedic Progress Noteon 1 Orthopedic Progress Note [facility] Patient: NICOLETTE GARZA [address] [place] [address] MR#: [id number] PROGRESS NOTE - Orthopedic : 72 Service Date: 01/30/21 1542 Subjective Summary of Stay POD#2 s/p ACDF C3-4, C4-5, C5-6, C6-7 Events since last encounter No acute events occurred overnight Subjective Patient is a 50-y/o female with PMH asthma who is POD#2 s/p ACDF C3-4, C4-5, C5-6, C6-7. Patient states I feel like I got hit by a truck. She reports shoulder and neck tightness. Reports nausea and loss of appetite. States that left hand numbness has improved since surgery. States she is drinking adn voiding.Reports headache but states she typically drinking 1.5 pots of coffee each day. Denies passing gas. Denies SOB, CP, and weakness. General Denies Chills, Denies Night sweats, Denies Fatigue HEENT Head Aches, Denies Visual Changes, Denies Dysphasia Pulmonary Denies Dyspnea, Denies Cough, Denies Pleuritic Chest Pain Cardiovascular Denies Chest Pain, Denies Palpitations, Denies Orthnopnea Gastrointestinal Nausea, Denies Vomiting, Denies Abdominal Pain, Denies Diarrhea, Denies Constipation Genitourinary Denies Dysuria, Denies Frequency Musculoskeletal Neck Pain, Shoulder Pain Neurological Numbness, Denies Weakness Objective Exam Vitals and I/O Vital Signs Verdana 4d Result Date Time Pulse Ox 96 01/30 1436 B/P 143/76 01/30 1436 Pulse 92 01/30 1436 Resp 15 01/30 1436 Temp 36.6 01/30 1323 O2 Delivery NASAL CANNULA 01/28 1530 O2 Flow Rate 3 01/28 1530 Intake AND Output Verdana 4d 01/30 2300 01/29 2300 Intake Total 1145 2452 Output Total 2200 2527 Balance -1055 -75 Intake, IV 1552 Oral 1145 900 utput, 0 2 rainage Output, Urine 2200 2525 General Appearance Alert, Oriented X3, Cooperative, No Acute Distress HEENT Atraumatic, EOMI Lungs Normal Air Movement Neck No JVD Cardiovascular Regular Rate Abdomen Normal Bowel Sounds Extremities No Clubbing, No Cyanosis Skin No Rashes, No Breakdown Neurological Normal Speech, Strength at 5/5 X4 Ext, Normal Tone, Sensation Intact Psych/Mental Status Mental Status NL Other Physical Findings ADAM's. Handgrip strength 5/5. UE strength 5/5. UE sensation intact. Hard collar intact. KAUR drain intact and to suction with scant amount of serosanguineous drianage. Drain removed without difficulty. Incision secured with Dermanobd and well approximated. Incision is without erythema, edema, and drainage. Results Results All Laboratory Tests 01/30 0503 Chemistry Sodium (136 - 145 mmol/L) 134 Potassium (3.5 - 5.1 mmol/L) 3.9 Chloride (98 - 107 mmol/L) 100 Carbon Dioxide (21 - 32 mmol/L) 31 BUN (7 - 18 mg/dL) 14 mg/dL) 0.672 Est GFR ( Amer) (> 60) > 60 Est GFR (Non-Af Amer) (> 60) > 60 Glucose (70 - 99 mg/dL) 98 Hematology WBC (3.9 - 11.0 K/uL) 14.4 Hgb (12.0 - 15.0 g/dL) 10.0 Hct (36.0 - 48.0 %) 30.3 Plt Count (140 - 440 K/uL) 294 Neut % (Auto) (%) 58.3 Assessment and Plan - ICD10 Problem List 1. S/P cervical spinal fusion 2. Asthma Assessment Assessment: -POD#2 s/p ACDF C3-4, C4-5, C5-6, C6-7 -Hand numbness has improved sincer surgery -Shoulder and neck pain -Nausea and loss of appetitie -Drinking and voiding -Denies passing gas -Bowel sounds present in all quadrants -Drain removed without difficulty -Incision secured with Dermabond glue and well approximated -Hard collar in place Plan: Patient to get suppository. If patient begins passing gas, patient will be dischagred home self care today. Patient is understanding and agreebale to plan. Dr. Moore aware of plan. IM: -Continue monitoring PT/OT: -Continue evaluating and trating -FWB -Collar at all times Pain Control: -Percocet -Tylenol -Soma DVT PPX: -Ambulating -Ankle pumps Electronically Signed eSign Date and Time Lois Noriega 01/30/21 1600 Fuentes Moore MD Normal [facility] Transfer Noteon 01-30-2021 Transfer Note [facility] Patient: NICOLETTE GARZA [address] [place] [address] MR#: [id number] TRANSFER NOTE : Service Date: 01/30/21 1009 Transfer/Acceptance Note Transfer/Accept Resident Transferring Resident: Lexx Campos Resident Accepting Resident: Evelyne Olmos Resident Pertinent Patient Details Number of Days in Hospital 2 Hospital Course Ms. Garza is a 50 y/o C lady w/ a PMHx significant for asthma. POD#2, s/p ACDF C3-C7, done under general anesthesia, w/o intraoperative complications w/ EBL 100 mL. The pt was admitted to the ICU after surgery for close monitoring. No Barlow, KAUR drain is in the place w/ small amount of serosanguinous drain. Reports overall condition improvement. Stable. Transferred to the Floor. Possibly will be d/c'ed today. Vital Signs Vital Signs Verdana 4d Date Time Temp Pulse Resp B/P B/P Pulse O2 O2 Flow FiO2 Mean Ox Delivery Rate 01/30 0800 36.7 93 18 145/58 95 01/30 0428 37.2 87 14 135/77 96 01/30 0109 70 16 01/29 2334 37.5 83 16 151/81 95 2000 37.5 76 15 150/89 96 1633 37.8 64 11 148/66 95 01/29 1405 37.3 76 14 139/85 95 01/29 1212 37.4 82 14 138/82 97 01/29 1029 74 16 132/78 95 Intake AND Output Verdana 4d 01/30 2300 01/29 2300 Intake Total 425 2452 Output Total 1800 2527 Balance -1375 -75 Intake, IV 1552 Intake, Oral 425 900 Output, 2 rainage Output, Urine 1800 2525 Laboratory Results Laboratory Tests 01/30 0503 Chemistry Sodium (136 - 145 mmol/L) 134 L Potassium (3.5 - 5.1 mmol/L) 3.9 Chloride (98 - 107 mmol/L) 100 Carbon Dioxide (21 - 32 mmol/L) 31 Anion Gap (6 - 18) 7 mg/dL) 14 Creatinine (0.550 - 1.020 mg/dL) 0.672 Estim Creat Clear Calc (ML/MIN) 116.369 Est GFR ( Amer) (> 60) > 60 Est GFR (Non-Af Amer) (> 60) > 60 Glucose (70 - 99 mg/dL) 98 Osmolality (270 - 300 mosm/kg) 278 Total Calcium (8.5 - 10.1 mg/dL) 9.1 Hematology WBC (3.9 - 11.0 K/uL) 14.4 H RBC (3.5 - 5.5 M/uL) 3.31 L Hgb (12.0 - 15.0 g/dL) 10.0 L L MCV (79.0 - 98.0 fL) 91.5 MCH (25.4 - 34.6 pg) 30.2 MCHC (31.5 - 36.5 g/dL) 33.0 RDW (11.5 - 14.5 %) 14.8 H Plt Count (140 - 440 K/uL) 294 MPV (8.7 - 12.4 fL) 9.9 Immature Gran % (Auto) (%) 0.3 Neut % (Auto) (%) 58.3 Lymph % (Auto) (%) 24.4 [place] % (Auto) (%) 16.8 Eos % (Auto) (%) 0.1 Baso % (Auto) (%) 0.1 Neut # (Auto) (1.4 - 6.6 K/uL) 8.4 H Lymph # (Auto) (1.2 - 3.5 K/uL) 3.5 (Auto) (0.0 - 1.0 K/uL) 2.4 H Eos # (Auto) (0.0 - 0.5 K/uL) 0.0 Baso # (Auto) (0.0 - 0.2 K/uL) 0.0 Immature Gran # (Auto) (0 - 0.05 K/uL) 0.05 Nucleated RBC % (0 - 0.2 /100 WBC) 0.0 Nucleated RBCs # (0 - 0.012 K/uL) 0.000 Diff Slide Review YES Assessment # POD#2, s/p ACDF C3-C7 * S// continue to c/o chest pain and neck pain, however reports improvement. Denies SOB, LEs pain or abdominal pain. * VSS * PE: cervical collar is in situ; has KAUR drain with small amount of serosanguinous fluid. S1/S2 wnl, BS are wnl, lungs are clear. * Plan: - IVF Ringer lactate 100 ml/hr - PT/OT - Zofran po PRN - Pepcid 40 mg BID po - Percocet po PRN - Tylenol 650 mg po PRN # Petechial lesion to left hand likely 2/2 HS reaction * O// erythematous rash w/ scaling, no visible mucous lesions * Has improved compared from yesterday # Asthma, not in exacerbation * not on meds # DVT ppx * IPCDs Electronically Signed eSign Date and Time Evelyne Olmos Residen 02/01/21 09 Normal [facility] Transfer Note [facility] Patient: NICOLETTE GARZA [address] [place] [address] MR#: [id number] TRANSFER NOTE : Service Date: 01/30/21923 Transfer/Acceptance Note Transfer/Accept Resident Transferring Resident: Lexx Campos Resident Accepting Resident: Evelyne Olmos Resident Pertinent Patient Details Hospital Course Ms. Garza is a 50 yo F with a PMH of asthma who is POD 2 S/P ACDF C3-C7. IM was consulted for postop medical management and pt was admitted to ICU for monitoring. The surgery was performed under GA, she tolerated it well and there were no reported complications. EBL was 100ml. Her barlow has been removed and there is scant amount of serosanguineous fluid in the KAUR drain. Patient complains of post-op neck pain which improves with medication. She is clinically AND vitally stable. Events since last encounter No acute events reported Subjective Complains of anterior neck pain 8-10 in severity, neck stiffness and lower chest pain worse with respiration. She denies any cough, SOB, N/V/D, no bowel movements or flatus yet. No leg pain or swelling. Petechiae noted to left hand has improved. Also reports slight improvement in numbness to right hand. Assessment #POD 2 s/p ACDF C3-C7 -The surgery was done under GA -No intraoperative or post operative complications -EBL was 100ml -Complains of anterior neck pain and chest pain -Using incentive spirometer -VSS -PE: Neck:cervical collar in situ, KAUR drain with small amount of serosanguinous discharge, dressing is dry and intact Resp: Air entry equal bilaterally. No crackles or wheezes CVS: S1 and S2 heard. No murmurs, rubs or gallops. Abd: benign. 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 No motor deficits. Plan: -IV fluids RL 100cc/ hour -PT/OT on board -Completed course of ancef and decadron -Zofran prn for nausea -Pepcid 40mg bid #Petechial lesion to left hand -Possible reaction to IV medication -Improved compared to yesterday -Apply ice to area and monitor #Pain management: - Percocet, Tylenol, soma, cepacol #Bowel care: -Mg hydroxide, Colace, Bisacodyl #Asthma: -Off medications -No SOB, no wheezes #DVT prophylaxis: -PCD #Disposition -Possible discharge today Electronically Signed eSign Date and Time Lexx Campos Krystin 01/31/21 1336 Normal [facility] Anesthesia Noteon 01-29-2021 Anesthesia Note [facility] Patient: NICOLETTE GARZA [facility] [place] [address] MR#: [id number] ANESTHESIA NOTE : Service Date: 01/29/21 0815 Post-anesthesia Note Note Patient assessed post operatively for the following: [x ] Respiratory function, including respiratory rate, airway patency and oxygen saturation [x ] Cardiovascular function, including pulse rate and blood pressure [x ] Mental status [x ] Temperature [x ] Pain [x ] Nausea and vomiting [x ] Postoperative hydration [x ] No Visual Changes Due to the following condition(s) additional monitoring may be necessary: [ ] [x ] No apparent anesthesia complications noted. [x ] Status as per pre-op Electronically Signed eSign Date and Time Jessica Moreno 01/29/21 0816 Stephen Padron MD Normal [facility] BASIC MET PANELon 01-29-2021 Anion gap [Moles/Vol] 12 mmol/L Normal 6-18 [facility] Comment on above: Order Comment: CONSE RVATION Performed By: #### L 500.67562, L500.49547, L500.74893 ####Test performed at: [address] [address] Calcium [Mass/Vol] 9.2 mg/dL Normal 8.5-10.1 [facility] Comment on above: Order Comment: CONSE RVATION Performed By: #### L 500.93929, L500.87726, L500.79329 ####Test performed at: [address] [address] Chloride [Moles/Vol] 102 mmol/L Normal 98-107 [facility] Comment on above: Order Comment: CONSE RVATION Performed By: #### L 500.84041, L500.46318, L500.89288 ####Test performed at: [address] [address] CO2 [Moles/Vol] 25 mmol/L Normal 21-32 [facility] Comment on above: Order Comment: CONSE RVATION Performed By: #### L 500.78744, L500.99259, L500.19751 ####Test performed at: [address] [address] Creatinine [Mass/Vol] 0.823 mg/dL Normal 0.550-1.020 [facility] Comment on above: Order Comment: CONSE RVATION Performed By: #### L 500.08496, L500.36891, L500.72110 ####Test performed at: [address] [address] Glucose [Mass/Vol] 141 mg/dL High 70-99 [facility] Comment on above: Order Comment: CONSE RVATION Result Comment: Fast ing GLUCOSE reference range has been updated per (ADA) [place] [employer]'s recommendation. 06/29/2018 Performed By: #### L 500.33975, L500.18865, L500.97523 ####Test performed at: [address] [address] OSM 282 mosm/kg Normal 270-300 [facility] Comment on above: Order Comment: CONSE RVATION Performed By: #### L 500.03152, L500.85834, L500.48005 ####Test performed at: [address] [address] Potassium [Moles/Vol] 4.2 mmol/L Normal 3.5-5.1 [facility] Comment on above: Order Comment: CONSE RVATION Performed By: #### L 500.13390, L500.52379, L500.15023 ####Test performed at: [address] [address] Sodium [Moles/Vol] 135 mmol/L Low 136-145 [facility] Comment on above: Order Comment: CONSE RVATION Performed By: #### L 500.81887, L500.63116, L500.54587 ####Test performed at: [address] [address] Urea nitrogen [Mass/Vol] 13 mg/dL Normal 7-18 [facility] Comment on above: Order Comment: CONSE RVATION Performed By: #### L 500.66847, L500.57947, L500.62300 ####Test performed at: [address] [address] CBC W/DIFFon 01-29-2021 BASO ABS 0.0 K/uL Normal 0.0-0.2 [facility] Comment on above: Order Comment: CONSE RVATION Performed By: #### L 200.69143 ####Test performed at: [address] [address] Basophils/100 WBC (Bld) 0.1 % Normal [facility] Comment on above: Order Comment: CONSE RVATION Performed By: #### L 200.82248 ####Test performed at: [address] [address] EOS ABS 0.0 K/uL Normal 0.0-0.5 [facility] Comment on above: Order Comment: CONSE RVATION Performed By: #### L 200.42459 ####Test performed at: [address] [address] Eosinophils/100 WBC (Bld) 0.0 % Normal [facility] Comment on above: Order Comment: CONSE RVATION Performed By: #### L 200.45167 ####Test performed at: [address] [address] IG % 0.4 % Normal [facility] Comment on above: Order Comment: CONSE RVATION Performed By: #### L 200.17529 ####Test performed at: [address] [address] IG ABS 0.06 K/uL High 0-0.05 [facility] Comment on above: Order Comment: CONSE RVATION Performed By: #### L 200.51850 ####Test performed at: [address] [address] Lymphocytes (Bld) [#/Vol] 1.0 10*3/uL Low 1.2-3.5 [facility] Comment on above: Order Comment: CONSE RVATION Performed By: #### L 200.63660 ####Test performed at: [address] [address] Lymphocytes/100 WBC (Bld) 7.4 % Normal [facility] Comment on above: Order Comment: CONSE RVATION Performed By: #### L 200.44994 ####Test performed at: [address] [address] MONO ABS 0.9 K/uL Normal 0.0-1.0 [facility] Comment on above: Order Comment: CONSE RVATION Performed By: #### L 200.49562 ####Test performed at: [address] [address] Monocytes/100 WBC (Bld) 6.6 % Normal [facility] Comment on above: Order Comment: CONSE RVATION Performed By: #### L 200.98460 ####Test performed at: [address] [address] NEUTROPHIL ABS 12.0 K/uL High 1.4-6.6 [facility] Comment on above: Order Comment: CONSE RVATION Performed By: #### L 200.82455 ####Test performed at: [address] [address] Neutrophils/100 WBC (Bld) 85.5 % Normal [facility] Comment on above: Order Comment: CONSE RVATION Performed By: #### L 200.60167 ####Test performed at: [address] [address] WBC (Bld) [#/Vol] 14.0 10*3/uL High 3.9-11.0 [facility] Comment on above: Order Comment: CONSE RVATION Result Comment: Delt a: 6.2 on 01/15/21-1505 Performed By: #### L 200.15896 ####Test performed at: [address] [address] Erythrocyte distribution width (RBC) [Ratio] 14.5 % Normal 11.5-14.5 [facility] Comment on above: Order Comment: CONSE RVATION Performed By: #### L 200.10226 ####Test performed at: [address] [address] Hematocrit (Bld) [Volume fraction] 32.4 % Low 36.0-48.0 [facility] Comment on above: Order Comment: CONSE RVATION Performed By: #### L 200.41323 ####Test performed at: [address] [address] Hemoglobin (Bld) [Mass/Vol] 10.7 g/dL Low 12.0-15.0 [facility] Comment on above: Order Comment: CONSE RVATION Performed By: #### L 200.93330 ####Test performed at: [address] [address] MCH (RBC) [Entitic mass] 30.2 pg Normal 25.4-34.6 [facility] Comment on above: Order Comment: CONSE RVATION Performed By: #### L 200.41377 ####Test performed at: [address] [address] MCHC (RBC) [Mass/Vol] 33.0 g/dL Normal 31.5-36.5 [facility] Comment on above: Order Comment: CONSE RVATION Performed By: #### L 200.90642 ####Test performed at: [address] [address] MCV (RBC) [Entitic vol] 91.5 fL Normal 79.0-98.0 [facility] Comment on above: Order Comment: CONSE RVATION Performed By: #### L 200.71485 ####Test performed at: [address] [address] NRBC # 0.000 K/uL Normal 0-0.012 [facility] Comment on above: Order Comment: CONSE RVATION Performed By: #### L 200.34899 ####Test performed at: [address] [address] NRBC % 0.0 /100 WBC Normal 0-0.2 [facility] Comment on above: Order Comment: CONSE RVATION Performed By: #### L 200.83749 ####Test performed at: [address] [address] Platelet mean volume (Bld) [Entitic vol] 10.2 fL Normal 8.7-12.4 [facility] Comment on above: Order Comment: CONSE RVATION Performed By: #### L 200.40517 ####Test performed at: [address] [address] Platelets (Bld) [#/Vol] 315 10*3/uL Normal 140-440 [facility] Comment on above: Order Comment: CONSE RVATION Performed By: #### L 200.46628 ####Test performed at: [address] [address] RBC (Bld) [#/Vol] 3.54 10*6/uL Normal 3.5-5.5 [facility] Comment on above: Order Comment: CONSE RVATION Performed By: #### L 200.37048 ####Test performed at: [address] [address] EST. CREAT CLRon 01-29-2021 EST. CREAT CLR 95.018 ML/MIN Normal [facility] Comment on above: Order Comment: CONSE RVATION Result Comment: This result is an ESTIMATED blood creatinine clearance value which is derived from the patient age, sex, weight, and previous blood creatinine result. Performed By: #### L 500.99384, L500.11615, L500.54778 ####Test performed at: [place] [id number] GFR ESTIMATEon 01-29-2021 IF AMER > 60 Normal > 60 [facility] Comment on above: Order Comment: CONSE RVATION Result Comment: eGFR (Estimated GFR) Units of measure:mL/min/1.73 meters sq. *CALCULATION REVISED 01/23/2015;IDMS-traceable MDRD equation eGFR is derived from the reexpressed MDRD Study equation using the following parameters: serum creatinine, age, gender and race. An eGFR<60 mL/min/1.73m2 for >3 months is consistent with chronic kidney disease. Refer to KDOQI guidelines for clinical interpretation. Performed By: #### L 500.57099, L500.89277, L500.97981 ####Test performed at: [place] [address] IF non-AFR AMER > 60 Normal > 60 [facility] Comment on above: Order Comment: CONSE RVATION Performed By: #### L 500.05780, L500.55021, L500.05061 ####Test performed at: [place] [address] Internal Med Progress Noteon 01-29-2021 Internal Med Progress Note [facility] Patient: NICOLETTE GARZA [address] [place] [address] MR#: [id number] PROGRESS NOTE - Internal Medicine : 74 Service Date: 01/29/21 0658 Subjective Primary Resident: Ameena Campos After Hours Call: [phone] ICU Resident Summary of Stay Ms. Garza is a 50 yo F with a PMH of asthma who is POD 1 S/P ACDF C3-C7. IM was consulted for postop medical management and pt was admitted to ICU for monitoring. The surgery was performed under GA, she tolerated it well and there were no reported complications. EBL was 100ml. Her barlow has been removed and there is scant amount of serosanguineous fluid in the KAUR drain. Patient complains of post-op neck pain which improves with medication. She is clinically AND vitally stable. Events since last encounter None reported Subjective Patient complains of tightness AND pain in neck which is improved with pain meds and lying flat. Numbness to arms unworsened. Tolerating fluids, no flatus or bowel movements. Complains of intermittent nausea, no vomiting or diarrhea. No calf pain or swelling reported. General Denies Chills, Denies Night sweats, Denies Fatigue HEENT Head Aches, Denies Dysphasia, Denies Sore Throat Pulmonary Denies Dyspnea, Denies Cough, Denies Pleuritic Chest Pain Cardiovascular Denies Chest Pain, Denies Palpitations, Denies Orthnopnea Gastrointestinal Nausea, Denies Vomiting, Denies Abdominal Pain Genitourinary Denies Dysuria, Denies Frequency, Denies Incontinence Musculoskeletal Neck Pain, Denies Shoulder Pain, Denies Arm Pain Neurological Numbness, Denies Weakness, Denies Change in Speech Objective Exam Vitals and I/O Vital Signs Verdana 4d Result Date Time Pulse Ox 95 01/29 646 Pulse 70 01/29 646 Resp 22 01/29 646 B/P 143/81 01/29 449 Temp 36.7 01/29 449 O2 Delivery NASAL CANNULA 01/28 153 O2 Flow Rate 3 01/28 1530 Intake AND Output Verdana 4d 01/29 23001/28 2300 Intake Total 1050 600 Output Total 875 350 Balance 175 250 Intake, IV 900 400 Oral 150 200 utput, 0 rainage Output, Urine 875 350 Patient 72 kg eight Weight PREADMISSION TESTING WGT easurement ethod General Appearance Alert, Oriented X3, Cooperative, No Acute Distress HEENT Atraumatic, Mucous Membr. moist/pink Lungs Clear to Auscultation, Normal Air Movement Neck Supple, No JVD, No thryomegaly Cardiovascular Regular Rate, Normal S1, Normal S2, No Murmurs Abdomen Normal Bowel Sounds, Soft, No Tenderness, No Hepatospenomegaly, No Masses Extremities No Clubbing, No Cyanosis, Normal Pulses Skin Erythemia and petechia to left hand beginning this morning Neurological Numbness to upper extremities bilaterally R>L Psych/Mental Status Mental Status NL, Mood NL Results Results All Laboratory Tests 01/290 Chemistry Sodium (136 - 145 mmol/L) 135 Potassium (3.5 - 5.1 mmol/L) 4.2 Chloride (98 - 107 mmol/L) 102 Carbon Dioxide (21 - 32 mmol/L) 25 BUN (7 - 18 mg/dL) 13 mg/dL) 0.823 Est GFR ( Amer) (> 60) > 60 Est GFR (Non-Af Amer) (> 60) > 60 Glucose (70 - 99 mg/dL) 141 Hematology WBC (3.9 - 11.0 K/uL) 14.0 Hgb (12.0 - 15.0 g/dL) 10.7 Hct (36.0 - 48.0 %) 32.4 Plt Count (140 - 440 K/uL) 315 Neut % (Auto) (%) 85.5 Assessment/Plan-Interna l Med Med Reasons/Tx for Con't stay Recovery from surgery Assessment #POD 1 s/p ACDF C3-C7 -The surgery was done under GA -No intraoperative or post operative complications -EBL was 100ml -Complains of anterior neck pain and heart burn, no other complaints -VSS -PE: Neck:cervical collar in situ, KAUR drain with small amount of serosanguinous discharge, dressing is dry and intact Resp: Air entry equal bilaterally. No crackles or wheezes CVS: S1 and S2 heard. No murmurs, rubs or gallops. Abd: benign. 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 No motor deficits. 01/29/21 0450: 01/29/21 0450: Plan: -IV fluids RL 100cc/ hour -PT/OT on board -Completed course of ancef and decadron -Zofran prn for nausea -Pepcid 40mg bid #Petechial lesion to left hand -Possible reaction to IV medication -Apply ice to area and monitor #Pain management: - Percocet, Tylenol, soma, cepacol #Bowel care: -Mg hydroxide, Colace, Bisacodyl #Asthma: -Off medications -No SOB, no wheezes #DVT prophylaxis: -PCD Be sure to note changes Be sure to note changes DVT Prophylaxis PCD *Attending Attestation Attending Attestation Attending Attestation patient seen l hand petechiae- likely due to effect of tight wrist band;pulse palpable, no neurologic deficit in the hand All pertinent elements of history and physical exam were confirmed by me. Agree with above documentation. The [resident's, PA's, VESSEL WELDER's] assessment and plan reflect my input. Discussed with documenting provider and patient. Plan is as outlined above. Electronically Signed eSign Date (more content not included)... Normal [facility] OT Therapy Recommendationson 01-29-2021 OT Therapy Recommendations [facility] Patient: NICOLETTE GARZA [address] [id number] MR#: [id number] OT THERAPY RECOMMENDATIONS : 74 Service Date: 01/29/21 132 Therapy Recommendations Therapy Recommendations Recommendations Occupational therapy eval complete. No skilled OT indicated. Recommend home with family assist. D/C OT services. Electronically Signed eSign Date and Time Fee,Acacia OT 01/29/21 1327 Normal [facility] Orthopedic Progress Noteon 1 Orthopedic Progress Note [facility] Patient: NICOLETTE GARZA [address] [address] MR#: [id number] PROGRESS NOTE - Orthopedic : 74 Service Date: 01/29/21 1532 Subjective Summary of Stay POD#1 s/p ACDF C3-4, C45-, C5-6, C6-7 Events since last encounter No acute events occurred overnight Subjective Patient is a 50-y/o female with PMH asthma who is POD#1 s/p ACDF C3-4, C4-5, C5-6, C6-7. Patent states that prior to surgery she experienced right hand numbness. Today she states that symptoms are the same as before surgery. She reports shoulder and neck soreness. Reports heartburn, nausea, and loss of appetite. States she is drinking, voiding, and passing gas. Denies sore throat and difficulty swallowing. General Appetite, Denies Chills, Denies Night sweats, Denies Fatigue HEENT Denies Head Aches, Denies Visual Changes, Denies Dysphasia Pulmonary Denies Dyspnea, Denies Cough, Denies Pleuritic Chest Pain Cardiovascular Denies Chest Pain, Denies Palpitations, Denies Orthnopnea Gastrointestinal Nausea, Denies Vomiting, Denies Abdominal Pain, Denies Diarrhea, Denies Constipation Genitourinary Denies Dysuria, Denies Frequency Musculoskeletal Neck Pain, Shoulder Pain, Denies Hand Pain Neurological Numbness, Denies Weakness Objective Exam Vitals and I/O Vital Signs Verdana 4d Result Date Time Pulse Ox 95 01/29 1405 B/P 139/85 01/29 1405 Temp 37.3 01/29 1405 Pulse 76 01/29 1405 Resp 14 01/29 1405 O2 Delivery NASAL CANNULA 01/28 1530 O2 Flow Rate 3 01/28 1530 Intake AND Output Verdana 4d 01/29 2300 01/28 2300 Intake Total 2302 600 Output Total 1927 350 Balance 375 250 Intake, IV 1552 400 Oral 750 200 utput, 2 rainage Output, Urine 1925 350 Patient 72 kg eight Weight PREADMISSION TESTING WGT easurement ethod General Appearance Alert, Oriented X3, Cooperative, No Acute Distress HEENT Atraumatic, EOMI Lungs Normal Air Movement Neck No JVD Cardiovascular Regular Rate Abdomen No Tenderness Extremities No Clubbing, No Cyanosis Skin No Breakdown Neurological Normal Speech, Strength at 5/5 X4 Ext, Normal Tone, Sensation Intact Psych/Mental Status Mental Status NL Other Physical Findings ADAM's. UE sensation intact. UE strnegth 5/5. Left dorsal aspect of hand is edematous and erythematous with distinct line at wrist. Petichiae are present on dorsal aspect of hand. Handgrip strength is 5/5. KAUR drain intact and to suction with small amount of serosanguineous drainage. Hard collar in place. Results Results All Laboratory Tests 01/29 0450 Chemistry Sodium (136 - 145 mmol/L) 135 Potassium (3.5 - 5.1 mmol/L) 4.2 Chloride (98 - 107 mmol/L) 102 Carbon Dioxide (21 - 32 mmol/L) 25 BUN (7 - 18 mg/dL) 13 mg/dL) 0.823 Est GFR ( Amer) (> 60) > 60 Est GFR (Non-Af Amer) (> 60) > 60 Glucose (70 - 99 mg/dL) 141 Hematology WBC (3.9 - 11.0 K/uL) 14.0 Hgb (12.0 - 15.0 g/dL) 10.7 Hct (36.0 - 48.0 %) 32.4 Plt Count (140 - 440 K/uL) 315 Neut % (Auto) (%) 85.5 Assessment and Plan - ICD10 Problem List 1. S/P cervical spinal fusion 2. Asthma Med Reasons/Tx for Con't stay Control pain and nausea Assessment Assessment: -POD#1 s/p ACDF C3-4, C4-5, C5-6, C6-7 -Symptoms are the same as before surgery (right hand numbness) -Shoulder and neck pain -Hangrip strength 5/5 -Left hand erythematous and edematous with petechiae -KAUR drain intact and to suction -Hard cp;;ar intact -Dressing to anterior neck dry and intact Plan: Patient to stay overnight in order to monitor nausea, pain control and continue working with PT/OT. Patient to transfer to . Patient is understanding and agreeable to plan. Shall aware of plan. IM: -Continue monitoring PT/OT: -Continue evaluating and treating -FWB -Hard collar at all times Pain Control: -Percocet -Tylenol -Soma DVT PPX -Ambulating -Ankle pumps -SCDs Drain to joshua intact Electronically Signed eSign Date and Time Lois Noriega 01/29/21 1550 Fuentes Moore MD Normal [facility] PT Therapy Recommendationson 01-29-2021 PT Therapy Recommendations [facility] Patient: NICOLETTE GARZA [address] [place] [address] MR#: [id number] PT THERAPY RECOMMENDATIONS : 74 Service Date: 01/29/21 135 Therapy Recommendations Therapy Recommendations Recommendations PT EVAL COMPLETED. DC RECOMM: HOME NO PT SERVICES. Electronically Signed eSign Date and Time Tricia Mc PT 01/29/21 1350 Normal [facility] z OT Inpatient Discharge Not liana 01-29-2021 z OT Inpatient Discharge Note [facility] Patient: NICOLETTE GARZA [address] [place] [address] MR#: [id number] OT INPATIENT DISCHARGE NOTE : 74 Service Date: 01/29/21 1422 z OT HPI Discharge Note Total number of visits 1 Date of Discharge 01/29/21 Start of Care Date 01/29/21 z OT Inpatient AP Discharge Treatment Therapeutic Exercise, Therapeutic Activity, Patient Education, Self Care/ADL Training, HEP Equipment Issued Handouts, Home Exercise Plan Treatment Goals Achieved: Yes Plan Discharge from OT DC Recommendations Home-No Home Health Care, Family Assistance OT Status: DISCHARGED Electronically Signed eSign Date and Time Acacia Gordillo OT 01/29/21 1422 Normal [facility] z OT Inpatient Evaluationon 01-29-2021 z OT Inpatient Evaluation [facility] Patient: NICOLETTE GARZA [address] [place] [address] MR#: [id number] OT INPATIENT EVALUATION : 74 Inpatient OT HPI Date of Service 01/29/21 Time In: 1055 Time Out: 1121 Total Treatment Time (Mins) 26 Visit Reason ROE CERVICAL C3-4,C4-5,C5-6,C6-7,SPO NDYLOSIS W/MY Surgery Type/Date ACDF C3-7 01/28/21 Referral Date 01/28/21 Tx Diagnosis: CERVICALGIA Insurance Name [facility] Hospital Course POD#1. RN cleared pt. to participate. Pt. supine in bed and agreeable. Pt. spouse arrived part way through OT visit and remained present rest of session. Past Medical/Social History Problem List Surgical Problems S/P cervical spinal fusion Living Arrangements Home Lives With Spouse Steps to Enter House 2 Stairs Inside House 0 ADL Equipment plans to borrow shower seat Bedroom Location 1st Floor Bathroom Location 1st Floor Shower Walk in, Tub Tasks Prior to Admission Mod I-I ADLs, IADLs, and mobility. Denies falls. 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 Objective Precautions Cervical Collar, Cervical Spine Precaution Vital Signs Comments VSS Pain Character Ache, Cramping, Sore Pain Location Incisional, Neck Comments RN aware and in to give muscle relaxant while OT present Equipment Drain (kaur drain), Peripheral IV, Telemetry Orientation Person, Place, Time, Situation Behavior Cooperative Sensation Intact to Light Touch Tone Within Normal Limits Hand Dominance Right Coordination Fine Motor Coordination Within Functional Limits Gross Motor Coordination Within Functional Limits Coordination Within Functional Limits Opposition Intact Proprioception Within Normal Limits ROM RUE ROM Within Functional Limits LUE ROM Within Functional Limits Comments Good return HEP 10x1 all planes. Good return demo'd. L hand mildly red and edematous (per RN and pt. confirmation-likely allergic reaction to tape from heplock). Pt. advised to perform only as pain free. Strength RUE Strength Within Normal Limits LUE Strength Within Normal Limits Outcome Measures Robina Score Robina Score Response Value Feeding Independent 10 Bathing Independent 5 Grooming Independent 5 Dressing Independent 10 Bowels Continent 10 Bladder Continent 10 Toilet Independent 10 Transfer(Bed to Chair and Back) Independent 15 obility (On Level Surfaces) Independent 15 tairs Independent 10 otal 100 AM-PAC Inpt Daily Activity AM-PAC Inpt Daily Activity Response Value Lower Body Clothing None 4 Bathing None 4 Toileting None 4 Upper Body Clothing None 4 Personal Grooming None 4 Eating Meals None 4 Total 24 Comments 0% disability based on the Robina Index ADL Function ADL Function Upper Body Dressing Modified Independent Lower Body Dressing Modified Independent Toileting Modified Independent Feeding Modified Independent Grooming Modified Independent Comments Patient instructed in and performed lower body dressing/ADLs via modified techniques: good return demo'd. Pt. able to perform without use of AE. Shower chair recommeneded for safety bathing/energy conservation-good return understanding verbalized. AE/DME recommendation: Shower seat Clothes Marker Transfers Transfers Supine to Sit Modified Independent Sit to Stand Modified Independent Stand to Sit Modified Independent Sit to Supine Modified Independent Bed to Chair Modified Independent Chair to Bed Modified Independent Toilet Modified Independent Rolling Modified Independent Comments Good return log roll. Pt. ambulating in room 10'x2, 20'x1 no device. Good safety and balance throughout. Does require slightly increased time for transfers and ambulation, but no hands on assist required. Static Sitting Balance Good Dynamic Sitting Balance Good Static Standing Balance Good Dynamic Standing Balance Good Treatment Additional Minutes of Tx Performed 10 Remained in Chair All Needs Within Reach Yes Assessment/Plan for Inpt OT DC Recommendations Home-No Home Health Care, Family Assistance Topic #1 Rehabilitation Techniques Teaching Method: VERBAL EXPLANATION Teaching Method: WRITTEN MATERIALS Teaching Method: TEACHBACK Outcome: VERBALIZED/ADEQ TEACHBACK Rehab Potential Excellent Treatment Tolerance Good Assessment Patient does not demonstrate additional need for skilled OT services at this time. Patient was pleasant, alert, and cooperative throughout the session. Patient Stated Goal: n/a Goals discussed with: Patient, Spouse Frequency of Therapy Eval Only Patient Status DISCHARGED Eval Completed Yes Eval Complexity Low Complexity Treatment Performed Yes Electronically Signed eSign Date and Time Fee,Acacia OT 01/29/21 1420 Normal [facility] z PT Inpatient Discharge Not liana 01-29-2021 z PT Inpatient Discharge Note [facility] Patient: NICOLETTE GARZA [address] [place] [address] MR#: [id number] PT INPATIENT DISCHARGE NOTE : 74 Service Date: 01/29/21 1349 z PT Inpt. HPI Discharge Note Date of Discharge 01/29/21 Start of Care Date 01/29/21 Final Date of Care 01/29/21 z PT Inpatient AP Discharge Treatment: Therapeutic Activity, Patient Education, Therapeutic Exercise, Gait Training, HEP, Neuromuscular Reeducation Plan Discharge from PT Discharge Recommendations Home-No Home Health Care PT Status: DISCHARGED Electronically Signed eSign Date and Time Tricia Mc PT 01/29/21 1349 Normal [facility] z PT Inpatient Evaluationon 01-29-2021 z PT Inpatient Evaluation [facility] Patient: NICOLETTE GARZA [address] [place] [address] MR#: [id number] PT INPATIENT EVALUATION : 74 Service Date: 01/29/21 1433 Inpatient PT HPI Date of Service 01/29/21 Time In: 1215 Time Out: 1245 Total Treatment Time (Mins) 10 Room Number 349 Visit Reason ROE CERVICAL C3-4,C4-5,C5-6,C6-7,SPO NDYLOSIS W/MY Surgery Type: acdf c3-4,4-5.5-6,6-7 with cages and plate Surgery Date: 01/28/21 Referral Date 01/28/21 Tx Diagnosis: CERVICALGIA Insurance Name [facility] Hospital Course 50 Y/O PATIENT ADMITTED TO HOSP FOR SX. PT ORDERS REC'D TO EVAL AND TX. CERVICAL PRECAUTIONS, HARD CERVICAL COLLAR. UP WITH ASST.,FWB, ENCOURAGE AMBULATION/CALF/ANKLE EX' S. PATIENT ID'D VIA NAME AND . AT ARRIVAL SUPINE IN BED. NURSING AND CLIN COORD IN ROOM. Past Medical/Social History Problem List Medical Problems Asthma Surgical Problems S/P cervical spinal fusion Functional Level Living Arrangements Home Lives With Spouse Steps to Enter House 2 no hr Stairs Inside House 0 ADL Equipment plans to borrow shower seat Bedroom Location 1st Floor Bathroom Location 1st Floor Shower Walk in, Tub Tasks Prior to Admission Mod I-I ADLs, IADLs, and mobility. Denies falls. 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 Objective Pain Pain Scale 10 Pain Character Ache Pain Location Incisional Precautions Cervical, Spinal Equipment Drain, Peripheral IV, SCD Dynamic Standing Balance Good (NO A.D.) Orientation Person, Place, Time, Situation Behavior Anxious, Cooperative Sensation Within Functional Limits Tone Within Functional Limits Endurance Fair Posture Within Functional Limits Wound/Skin IV, DRAIN, INCISION. Fine Motor Coordination Within Functional Limits Gross Motor Coordination Minimally Impaired ROM RUE ROM: SEE OT EVAL LUE ROM: SEE OT EVAL RLE ROM: WITHIN FUNCTIONAL LIMITS LLE ROM: WITHIN FUNCTIONAL LIMITS Strength RUE Strength: SEE OT EVALUATION LUE Strength: SEE OT EVALUATION RLE Strength: WITHIN FUNCTIONAL LIMITS LLE Strength: WITHIN FUNCTIONAL LIMITS Outcome Measures Modified Josephine Score 0-No Symptoms AM-PAC Inpatient Mobility AM-PAC Inpatient Mobility Response Value Turn Back/Side While Flat WO Bedrails None 4 Move From Lying to Side of Bed WO Bedrails None 4 Move To/From Bed to Chair None 4 Stand Up From Chair Using Arms None 4 Walk in Hospital Room A Little 3 limb 3-5 Steps W Railing A Little 3 otal 22 Mobility Transfers Supine to Sit Independent Sit to Supine Independent Sit to Stand Independent Stand to Sit Independent Stand Pivot Independent Rolling Independent Weight Bearing Full Weight Bearing Gait Patient ambulated Modified Independently With Assistive Device Wheeled Walker For (Feet) 45' X 2 Comments PATIENT DEMO SLOW BUT STEADY GT PUSHING IV POLE, PRECAUTIONS MAINTAINED. Stairs Comments PATIENT DECLINED STAIRCLIMBING STATING THAT SHE WOULD BE ABLE TO HANDLE STEPS. SPOUSE CAN ASST. Treatment Additional Minutes of Tx Performed 10 Remained in Bed All Needs Within Reach Yes Comments PATIENT EDUCATED ON PT ROLE,SERVICES, POC, DC RECOMMENDATION, CERVICAL PRECAUTIONS AND PROTOCOL,THER EX. BILAT. L.E.'S X 10 IN SUPINE. Assessment/Plan for Inpt PT Discharge Recommendations Home-No Home Health Care Topic #1 LACE WEAVER Teaching Method: BOOKLET Teaching Method: TEACHBACK Outcome: RETURN SKILL DEMO Treatment Tolerance Good Assessment Patient has no acute physical therapy needs at this time, DC from acute physical therapy. Performing all transfers, gait at MOD I level or greater. Verbalizing understanding of HEP/Precautions. Patient Stated Goal: N/A Frequency of Therapy: EVAL. Patient Status DISCHARGED Eval Completed Yes Eval Complexity Low Treatment Performed Yes Electronically Signed eSign Date and Time Tricia Mc PT 01/30/21 0934 Normal [facility] Brief Noteon 01-28-2021 Brief Note [facility] Patient: NICOLETTE GARZA [address] [id number] MR#: [id number] BRIEF NOTE : 74 Service Date: 01/28/21 1539 Brief Note Brief Note ICU team Ms. Garza is a 50 yo F with a PMH of Asthma who is S/P ACDF C3-C7 POD-0. IM was consulted for postop medical management and pt was admitted to ICU for monitoring. Pt tolerated the procedure well without reported complications. The surgery was performed under GA and EBL was 100 ml. Drain with scant amount of serosanguineous fluid and barlow in place. Pt is still drowsy due to anesthesia effect. She does not have complaints. PE unremarkable. VSS. Will continue to follow. Electronically Signed eSign Date and Time Bonita Dennis,Chiki RES 01/29/212009 Normal [facility] Internal Medicine Consultati onon 01-28-2021 Internal Medicine Consultation [facility] Patient: NICOLETTE G[address] [id number] MR#: [id number] CONSULTATION - Internal Medicine : 74 Service Date: 01/28/21 1429 History of Present Illness Referring Physician Fuentes Moore MD Consulted Physician Rachael Avila MD Reason for Consult Post operative management Chief Complaint/Present Illness: Neck pain with tingling of hands and fingers HPI This 50 Yr old female, with PMH of asthma, underwent ACDF C3-C7 today.under GA, EBL is 100cc, no intra operative or post operative complications.Internal medicine is consulted for post operative management. The patient was seen and examined in PACU, she is still recovering from anesthesia, but reported no chest pain, no SOB, no lightheadedness. -PSH:unremarkable -She is Smoker -No hx of VTes Medical/Surgical History Past Medical History PMH Other/Comment Asthma Cervical Myelopathy Transfusion Status CONSERVATION Allergies/Home Medications Allergies Coded Allergies: NO KNOWN DRUG ALLERGIES (01/25/21) Uncoded Allergies: ADHESIVES (Mild, ITCHING 01/28/21) Reconcile Medications Scheduled Medications Methylprednisolone* (Medrol Dosepak*) 4 MG TAB.DS.PK 0 TAB PO DIRECTED #1 DOSEPAK, Ref 0 Daily Dosing Administration Time 0800 1200 1700 2200 Day 1 2 tab 1 tab 1 tab 2 tab Day 2 1 tab 1 tab 1 tab 2 tab Day 3 1 tab 1 tab 1 tab 1 tab Day 4 1 tab 1 tab 1 tab Day 5 1 tab 1 tab Day 6 1 tab Administer total number of tablets for Day 1 in evenly divided doses over the remaining administration times for the day. Then administer day 2-6 as directed. Prescribed by LOIS NORIEGA on 01/30/21 Last Action: No Recorded Action Scheduled PRN Medications Carisoprodol 350 MG TABLET 350 MG PO TIDPRN PRN Spasms 7 Days #21 TABLET, Ref 1 Prescribed by LOIS NORIEGA on 01/30/21 Last Action: No Recorded Action oxyCODONE HCl 5mg AND Acetaminophen 325mg * (Percocet 5mg/325mg Tablet *) 1 EACH TABLET 1- 2 UDTAB PO Q4-6H PRN PRN post op pain 7 Days #56 TABLET, Ref 0 Max daily dose: 8 tablets Prescribed by LOIS NORIEGA on 01/30/21 Last Action: No Recorded Action Physical Exam Appearance Cm: 170.18 Wt-K.000 BMI 24.9 Patient is Overweight Pain Scale 0 Neck Neck Hard neck collar in situ,one drain, dressing is dry and clean Respiratory Respiratory Lungs sound clear, Respirations non-labored, Symmetrical expansion CVS Cardiovascular Normal heart sounds, Pulses full, equal Neuro * Document results of Cranial Nerve Asmt for all BH pts. Abdomen/Pelvis Abdomen Abdomen soft, Non-tender Extremity Extremity intact motor power in upper extremities Skin Skin rythema over lthe dorsal aspect of left hand, without swelling, palapable pulses Assessment/Plan Lab Laboratory Tests 01/28 0725 Urines POC Urine HCG, Qual NEGATIVE Assessment and Plan #S/p ACDF C3-C7, POD-0 -The surgery was done under GA -No intraoperative or post operative complications -EBL is 100cc, she has one drain and Barlow -The patient was seen and examined in PACU -She is in pain, no other complaints -PE: -Vitals: BP:127/75 p:95-100 she is on face mask -Neck:cervical collar in situ, one drain, dressing is dry and intact -Chest:NVB all over Heart:RHR, normal heart sounds Plan: -IV fluids RL 100cc/ hour -PT/OT on board #Pain management: -Dilaudid, Percocet, Tylenol #DVT pophylaxis: -Per surgery #Bowel care: -Mg hydroxide, Colace, Bisacodyl #Asthma: -Off medications -No SOB, no wheezes Electronically Signed eSign Date and Time Minnie Peace 01/30/21 1551 Rachael Avila MD 01/29/21 1303 Clarissa Hahn Res Normal [facility] OPERATIVE REPORTon OPERATIVE REPORT NAME: NICOLETTE GARZA MR#: [id number] SURGEON: Fuentes Moore MD DATE OF SURGERY: 01/28/2021 OPERATIVE REPORT PREOPERATIVE DIAGNOSES: Herniated disk with myelopathy and spondylosis cervical. POSTOPERATIVE DIAGNOSES: Herniated disk with myelopathy and spondylosis cervical. OPERATIVE PROCEDURE: Anterior cervical diskectomy and interbody fusion at C3- 4, C4-5, C5-6 and C6-7 with trabecular metal cages and plate fixation. This was done under neuromonitoring. This neuromonitoring was ordered to ensure the greater margin of safety and protect the neurologic structures. Intraoperative neuromonitoring was performed by an on-php website developer and an offsite physician who was continuously monitoring the case. This was Dr. Oneal. Dr. Oneal was available throughout the case by written e-mail or phone communication. Intraoperative monitoring modalities utilized for SSEP uppers, SSEP lowers, MEP, SEMG, EEG, and lxybo-ks-pkeg. Pre and post positioning neuromonitoring were performed with no change. DETAILS OF PROCEDURE: The patient was placed in supine on the x-ray table. After anesthesia, the neck was gently extended over a roll and there were no changes after positioning. The neck was prepped and draped in usual fashion. The incisions were planned using C-arm. Beginning with the caudal incision, a sharp transverse incision was made on the right side. Sharp dissection was performed in the subcutaneous tissues. Flaps were elevated above the platysma, which was incised longitudinally. Dissection was carried down between the sternocleidomastoid and the strap muscles and between the trachea and esophagus and the carotid sheath. The prespinous fascia was dissected. A needle was placed into the disk space at C5-C6 and the center marked for rotation. We moved down to C6-7, where distraction pins were placed in the bodies of C6 and C7 and x-ray confirmed. The medial borders of the longus colli muscles were coagulated and retracted. The anterior annulus was sharply excised. A thorough diskectomy was performed with curettes and pituitary rongeurs. The cartilaginous endplates were completely scraped off the bony endplates using curettes. Posteriorly, the PLL and posterior annulus were taken down with a #1 Kerrison rongeur. Posterior osteophytes were removed with the #1 Kerrison rongeur. Bilateral neural foraminotomies were performed with the #1 Kerrison rongeur. After thorough posterior decompression, the epidural space was palpated with a micro nerve hook. Both foramina were patent and it appeared that all posterior compressive pathology had been [facility] PT NAME: NICOLETTE GARZA MR#: [id number] [address] [place] [address] ACCT: [id number] : 74 OPERATIVE REPORT removed. The endplates were rasped to bleeding bone and flattened with a rasp. The interspace was trialed to a size 14 x 14 x 5 mm, which gave excellent fit and fill. X-ray confirmed good position. The trabecular metal implant was opened, packed with OsteoAMP. The interspace was irrigated with saline Betadine solution and a thin layer of FloSeal left posteriorly for coagulation. The implant was gently tapped into position and x-ray confirmed position in AP and lateral planes. The distraction pin was taken out of the body of C7 and placed in the bodies of C5 using C-arm as guidance. The medial borders of the longus colli muscles were coagulated and retracted at C5-6. The anterior annulus was sharply excised. Thorough diskectomy was performed with curettes and pituitary rongeurs. The cartilaginous endplates were removed from the bony endplates with curettes. The posterior annulus was taken down with #1 Kerrison rongeur out. The posterior osteophytes were removed with #1 Kerrison rongeur. Bilateral foraminotomies were performed with #1 Kerrison rongeur. After thorough posterior decompression, the epidural space was palpated with a micro nerve hook. Both foramina were patent and it appeared that all posterior compressive pathology had been removed. The endplates were then rasped to bleeding bone and flattened. The interspace was trialed with a 14 x 14 x 5 mm implant, which gave excellent fit and fill and x-ray confirmed good position. The interspace was irrigated with saline Betadine solution and a thin layer of FloSeal was left posteriorly for coagulation. The implant was packed with OsteoAMP and gently tapped into position using C-arm as guidance. X-ray confirmed excellent position in AP and lateral planes. A second incision was made with an adequate skin bridge more cranially, which was marked pre-incision using C-arm. The flaps were elevated above the platysma without devascularizing the bridge. Dissection was carried down between the sternocleidomastoid and the strap muscles after the platysma was divided longitudinally. Dissection was carried down between the trachea, esophagus, (more content not included)... Normal [facility] POC UR HCGon 01-28-2021 POC UR HCG Negative Normal [facility] Comment on above: Order Comment: CBN: NO [place]: MAIN ON BOARD QC CHECK FOR HCG OK? Y Test performed by: ENOC POC HCG RESULT: NEGATIVE Performed By: #### L 600.38261 #### Test performed at: [place] [address] Primary Residenton Primary Resident [facility] Pt Name: NICOLETTE GARZA MR#: [id number] [address] [place] [address] ACCT: [id number] [place] [address] : 74 Service Date: 01/28/21 1538 Primary Resident/Call Primary Resident: Joi Aguilera After Hours Call: ICU team Electronically Signed eSign Date and Time Bonita Dennis 01/28/21 1539 Normal [facility] Primary Resident [facility] Pt Name: KAYLANICOLETTE SAGASTUME MR#: [id number] [facility] [address] ACCT: [id number] [place] [address] : 74 Service Date: 01/28/21 1429 Primary Resident/Call Primary Resident: Sigrid sutherland After Hours Call: [phone] Red Team Electronically Signed eSign Date and Time Minnie Peace 01/28/21 1429 Normal [facility] CERVICAL SP AP&LAT OR 2-3 VW Son 01-25-2021 CERVICAL SP AP&LAT OR 2-3 VWS STUDY: CERVICAL SP AP LAT OR 2-3 VWS; 01/28/2021 1:30 pm INDICATION: ACDF C3-C4,C4-C5,C5-C6,C6-C7 . COMPARISON: None. ACCESSION NUMBER(S): [id number] ORDERING CLINICIAN: Fuentes Moore FINDINGS: Intraoperative fluoroscopy of the cervical spine obtained for localization. IMPRESSION: As above Normal [facility] CORONAVIRUSon 01-25-2021 SARS-CoV-2 (COVID-19) RNA JENN+probe Ql (Unsp spec) Methodology: PCR Negative results do not preclude SARS-CoV-2 infection and should not be used as the sole basis for patient management decisions. Negative results must be combined with clinical observations, patient history, and epidemiological information. False-negative results may occur if the viruses are present at a level that is below the analytical sensitivity of the assay or if the virus has genomic mutations, insertions, deletions, or rearrangements or if performed very early in the course of illness. Results may be affected by the quality of the sample collected. Simplexa COVID-19 Direct is only for use under the Food and Drug Administration's Emergency Use Authorization. The Simplexa COVID-19 Direct Letter of Authorization, along with the authorized Fact Sheet for Healthcare Providers, the authorized Fact Sheet for Patients, and authorized labeling are available on the FDA website: https://www.fda.gov/Med icalDevices/Safety/ EmergencySituations/ucm 790744.htm COVID-19 Negative for COVID-19 (SARS-CoV-2 RNA) Normal [facility] Comment on above: Order Comment: CBN: YES [place]: MAIN COVID Testing: PRE-OP/PROCEDURE SCREEN Comment: 01/28 AGE at Spec ALEX 50 Report age at specimen ALEX? Y First test: UNKNOWN Employed in Healthcare: NO Symptomatic as defined by CDC: NO Hospitalized for COVID-19? NO ICU: NO Resident in a Congregated Care Setting: NO Order Date: 01/25/21 : Not Performed By: #### M 400.18414 #### Test performed at: [address] [address] BASIC MET PANELon 01-15-2021 Anion gap [Moles/Vol] 10 mmol/L Normal 6-18 [facility] Comment on above: Performed By: #### L 500.53980, L500.60331 #### Test performed at: [address] [address] Calcium [Mass/Vol] 9.1 mg/dL Normal 8.5-10.1 [facility] Comment on above: Performed By: #### L 500.56226, L500.29433 #### Test performed at: [address] [address] Chloride [Moles/Vol] 108 mmol/L High 98-107 [facility] Comment on above: Performed By: #### L 500.00010, L500.50967 #### Test performed at: [address] [address] CO2 [Moles/Vol] 28 mmol/L Normal 21-32 [facility] Comment on above: Performed By: #### L 500.23565, L500.49488 #### Test performed at: [address] [address] Creatinine [Mass/Vol] 0.941 mg/dL Normal 0.550-1.020 [facility] Comment on above: Performed By: #### L 500.80077, L500.03255 #### Test performed at: [address] [address] Glucose [Mass/Vol] 105 mg/dL High 70-99 [facility] Comment on above: Result Comment: Fast ing GLUCOSE reference range has been updated per (ADA) [place] [employer]'s recommendation. 06/29/2018 Performed By: #### L 500.16462, L500.50427 #### Test performed at: [address] [address] OSM 296 mosm/kg Normal 270-300 [facility] Comment on above: Performed By: #### L 500.68485, L500.29702 #### Test performed at: [address] [address] Potassium [Moles/Vol] 4.2 mmol/L Normal 3.5-5.1 [facility] Comment on above: Performed By: #### L 500.60216, L500.93605 #### Test performed at: [address] [address] Sodium [Moles/Vol] 142 mmol/L Normal 136-145 [facility] Comment on above: Performed By: #### L 500.55542, L500.35890 #### Test performed at: [address] [address] Urea nitrogen [Mass/Vol] 18 mg/dL Normal 7-18 [facility] Comment on above: Performed By: #### L 500.04081, L500.34247 #### Test performed at: [address] [address] CBC W/DIFFon 01-15-2021 BASO ABS 0.1 K/uL Normal 0.0-0.2 [facility] Comment on above: Performed By: #### L 200.71485 #### Test performed at: [address] [address] Basophils/100 WBC (Bld) 1.5 % Normal [facility] Comment on above: Performed By: #### L 200.95496 #### Test performed at: [address] [address] EOS ABS 0.4 K/uL Normal 0.0-0.5 [facility] Comment on above: Performed By: #### L 200.59361 #### Test performed at: [address] [address] Eosinophils/100 WBC (Bld) 5.7 % Normal [facility] Comment on above: Performed By: #### L 200.31898 #### Test performed at: [place] [id number] Erythrocyte distribution width (RBC) [Ratio] 14.6 % High 11.5-14.5 [facility] Comment on above: Performed By: #### L 200.49940 #### Test performed at: [place] [address] Hematocrit (Bld) [Volume fraction] 36.2 % Normal 36.0-48.0 [facility] Comment on above: Performed By: #### L 200.44689 #### Test performed at: [address] [address] Hemoglobin (Bld) [Mass/Vol] 11.8 g/dL Low 12.0-15.0 [facility] Comment on above: Performed By: #### L 200.11497 #### Test performed at: [address] [address] IG % 0.3 % Normal [facility] Comment on above: Performed By: #### L 200.51206 #### Test performed at: [address] [address] IG ABS 0.02 K/uL Normal 0-0.05 [facility] Comment on above: Performed By: #### L 200.04860 #### Test performed at: [address] [address] Lymphocytes (Bld) [#/Vol] 2.8 10*3/uL Normal 1.2-3.5 [facility] Comment on above: Performed By: #### L 200.97773 #### Test performed at: [address] [address] Lymphocytes/100 WBC (Bld) 45.0 % Normal [facility] Comment on above: Performed By: #### L 200.93615 #### Test performed at: [address] [address] MCH (RBC) [Entitic mass] 30.8 pg Normal 25.4-34.6 [facility] Comment on above: Performed By: #### L 200.83481 #### Test performed at: [address] [address] MCHC (RBC) [Mass/Vol] 32.6 g/dL Normal 31.5-36.5 [facility] Comment on above: Performed By: #### L 200.96060 #### Test performed at: [address] [address] MCV (RBC) [Entitic vol] 94.5 fL Normal 79.0-98.0 [facility] Comment on above: Performed By: #### L 200.42545 #### Test performed at: [address] [address] MONO ABS 0.9 K/uL Normal 0.0-1.0 [facility] Comment on above: Performed By: #### L 200.02461 #### Test performed at: [address] [address] Monocytes/100 WBC (Bld) 14.6 % Normal [facility] Comment on above: Performed By: #### L 200.10597 #### Test performed at: [address] [address] NEUTROPHIL ABS 2.0 K/uL Normal 1.4-6.6 [facility] Comment on above: Performed By: #### L 200.97343 #### Test performed at: [address] [address] Neutrophils/100 WBC (Bld) 32.9 % Normal [facility] Comment on above: Performed By: #### L 200.61592 #### Test performed at: [address] [address] NRBC # 0.000 K/uL Normal 0-0.012 [facility] Comment on above: Performed By: #### L 200.80438 #### Test performed at: [place] [address] NRBC % 0.0 /100 WBC Normal 0-0.2 [facility] Comment on above: Performed By: #### L 200.88171 #### Test performed at: [address] [address] Platelet mean volume (Bld) [Entitic vol] 10.5 fL Normal 8.7-12.4 [facility] Comment on above: Performed By: #### L 200.32160 #### Test performed at: [address] [address] Platelets (Bld) [#/Vol] 337 10*3/uL Normal 140-440 [facility] Comment on above: Performed By: #### L 200.30337 #### Test performed at: [address] [address] RBC (Bld) [#/Vol] 3.83 10*6/uL Normal 3.5-5.5 [facility] Comment on above: Performed By: #### L 200.76836 #### Test performed at: [place] [address] [address] [place] [address] WBC (Bld) [#/Vol] 6.2 10*3/uL Normal 3.9-11.0 [facility] Comment on above: Performed By: #### L 200.99939 #### Test performed at: [place] [address] [address] [place] [address] CONSULTATION REPORTon 2020 CONSULTATION REPORT NAME: NICOLETTE GARZA MR#: [id number] MEDICAL ANTHROPOLOGY DIRECTOR: Meliton Gibson MD DATE OF CONSULTATION: 01/15/2021 CONSULTATION HISTORY OF PRESENT ILLNESS: Ms. Garza is a 50-year-old lady and I have been consulted by Dr. Moore for preoperative clearance before undergoing C3-C7 ACDF and cage placement and plate placement for spondylosis with myelopathy. She has been having a lot of neck pain radiating to the right hand and some numbness. She is also having some tingling in the feet. No fevers or chills, nausea, vomiting, diarrhea, constipation, blood in the stools or black stools. PAST HISTORY: None significant. SOCIAL HISTORY: She quit smoking 2-3 months ago. She used to be a half pack per day smoker before that for many years. No major use of alcohol or drugs. ALLERGIES: To dander and surgical tape and seasonal. PREVIOUS SURGICAL HISTORY: Includes ablation as well as tubal ligation and D and C. MEDICATION: She is only on Tylenol. PHYSICAL EXAMINATION: VITAL SIGNS: She is 5 feet 7 inches tall and 158 pounds. 98.1, 71, 16, and 118/70. HEENT: Atraumatic head. Pupils are equal and reactive. She wears glasses. Oral mucosa is normal. NECK: Supple. She has chronic neck pain from C3-C7 with radiation to the right upper and right lower extremities. LUNGS: Clear. HEART: S1, S2 present. Regular rate and rhythm. No obvious murmurs. ABDOMEN: Soft, nontender. No organomegaly. No hernias. Bowel sounds are present. NEUROLOGIC: She is awake, alert, and oriented x3. Cranial nerves, motor, sensory, and reflexes are within normal limits. She has neck pain with some radiation and sensory loss to the right upper extremity. LABORATORY DATA: Pending. IMPRESSION: 1. Preoperative clearance for C3-C7 spondylosis with myelopathy surgery with ACDF as well as cage and plate. 2. Otherwise, pretty much normal physical. [facility] PT NAME: NICOLETTE GARZA MR#: [id number] [address] [place], [place] [address] ACCT: [id number] : 74 CONSULTATION PLAN: The patient's physical exam is within acceptable limits. I am going to do a CBC and diff, and BMP. She is not on any medications. I told her to avoid aspirin and ibuprofen for at least 5-7 days before the surgery. She is cleared for anesthesia with acceptable risk. Thank you for the courtesy of this consultation. MELITON GIBSON MD MS/MODL/[id number] E/S: Meliton Gibson MD 01/15/21 1803 Electronically Signed [facility] PT NAME: NICOLETTE GARZA MR#: [id number] [address] [place], [place] [address] ACCT: [id number] : 74 CONSULTATION Normal [facility] GFR ESTIMATEon 01-15-2021 IF AMER > 60 Normal > 60 [facility] Comment on above: Result Comment: eGFR (Estimated GFR) Units of measure:mL/min/1.73 meters sq. *CALCULATION REVISED 01/23/2015;IDMS-traceable MDRD equation eGFR is derived from the reexpressed MDRD Study equation using the following parameters: serum creatinine, age, gender and race. An eGFR<60 mL/min/1.73m2 for >3 months is consistent with chronic kidney disease. Refer to KDOQI guidelines for clinical interpretation. Performed By: #### L 500.31854, L500.48301 #### Test performed at: [place] [address] IF non-AFR AMER > 60 Normal > 60 [facility] Comment on above: Performed By: #### L 500.59886, L500.60107 #### Test performed at: [place] [address] CERV SP W OBL/FLEX/EXT 6 OR >on 01-02-2021 CERV SP W OBL/FLEX/EXT 6 OR > STUDY: CERV SP W OBL/FLEX/EXT 6 OR > ; 01/02/2021 9:36 am INDICATION: PAIN. COMPARISON: None. ACCESSION NUMBER(S): [id number] ORDERING CLINICIAN: Fuentes Moore FINDINGS: No fracture or subluxation. Severe disc height loss with endplate osteophytes C4-5 and C5-6. Mild disc height loss C6-7. Straightening of the cervical spine. No spondylolisthesis. Lower cervical predominant facet arthropathy. No instability on flexion or extension. Evaluation of the neural foramina is severely limited due to suboptimal positioning. 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 Normal [facility] Vital Signs Date Time Vital Sign Value Performing Clinician Aaron abdi 02-09-2024 13:17-0500 Blood Pressure Location Jessica WILIL [facility] 02-09-2024 13:17-0500 Diastolic blood pressure 88 mm[Hg] Jessica RASHEEDL [facility] 02-09-2024 13:17-0500 Heart rate 72 /min Jessica RASHEEDL [facility] 02-09-2024 13:17-0500 Respiratory rate 16 /min Jessica RASHEEDL [facility] 02-09-2024 13:17-0500 Systolic blood pressure 124 mm[Hg] Jessica RASHEEDL [facility] Encounters Encounter Date Encounter Type Care Provider Facility Start: 02-09-2024 End: 02-09-2024 ambulatory Jessica FRY Facility:[facility] Start: 02-09-2024 End: 02-09-2024 Patient encounter procedure Jessica FRY [facility] Start: 12-28-2023 ambulatory Jessica FRY Facility:[facility] Start: 12-20-2021 Encounter for genera l adult medical examination without abnormal findings DR BASSAM WORTHINGTON [facility] Start: 12-13-2021 End: 12-14-[address] BASSAM WORTHINGTON Facility:[facility] Start: 12-13-2021 End: 12-14-2021 Encounter for general adult medical examination without abnormal findings DR BASSAM WORTHINGTON Facility: Start: 09-21-2021 End: 09-21-2021 ambulatory CK RODAS Facility: Procedures Date Procedure Procedure Detail Performing Clinician History of surgical procedure on cervical spine Jessica FRY Immunizations Immunization Date Immunization Notes Care Provider Fa [facility] 09-24-2020 SARS-CoV-2 (COVID-19 ) mRNA BNT-162b2 vax Jessica RASHEEDMayra [facility] 08-22-2020 SARS-CoV-2 (COVID-19 ) mRNA BNT-162b2 vax [address] WILIMay[address] [facility] Payers Date Payer Category Payer Unknown [id number] 1970 Unknown [id number] [id number] [id number] 1970 Unknown [id number] [id number] [id number] 1970 Unknown [id number] 1957 Unknown [id number] Social History Date Type Detail Facility Start: 02-09-2024 Tobacco smoking status Ex-smoker (fi nding) [facility] Tobacco smoking status Never [facility] Sex Assigned At Female [facility] Functional Status Date Assessment Result Facility 02-09-2024 Functional Status N/A [facility] Clinical Note 02-09-2024 Note Date & Type Note Facility 02-09-2024 Note General Surgery Offi ce/Clinic Note Chief Complaint consultation for anemia HPI Staff 53 year old female presents on consultation from Dr. Worthington for anemia. Labs completed 12/24- H/H 11.8 and 36.1, iron 79. Denies abdominal or rectal pain. No rectal bleeding or change in bowel habits. Denies nausea or vomiting. No unexplained weight loss. No previous colonoscopy in the past. No known family history of colon cancer. History of Present Illness 53 yo female with h/o hyperlipidemia, asthma, migraines, referred for anemia. patient found to have anemia on routine screening labs; normal iron level; denies change in bms or blood in stools, no abd complaints; denies GERD or dysphagia, no early satiety or wt loss; no h/o ulcer disease; no abd operations or previous colonoscopy; no asa or NSAID use; no tobacco use, no fmhx of GI malignancy or IBD. Review of Systems PHQ Score Initial Depression Screen Score: 0 SCORE ROS - Provider Constitutional: no fever, no sweats, no weight loss. Eyes: no glasses, no blurred vision, no visual loss. ENMT: no dentures, no hoarseness, no swallowing difficulties, no hearing loss, no ear infection(s), no nose bleeds. Cardiovascular: normal blood pressure, no chest pain, regular heartbeat, no heart murmur. Respiratory: no shortness of breath, no cough, no asthma, no wheezing. Gastrointestinal: no nausea, no vomiting, no diarrhea, no constipation, no blood in stool, no change in bowel habits, no abdominal pain, no hepatitis. Genitourinary: no kidney stones, no urine infection, no dysuria. Musculoskeletal: no pain, no weakness. Skin: no changing moles, no rash, no skin lumps. Neurologic: no seizures, no epilepsy, no headache. Psychiatric: no emotional or psychiatric problem. Heme/Lymph: no bleeding problems, no anemia, no blood clots, no transfusions. Allergy/Immunologic: no swollen lymph nodes/glands, no IV drug abuse. Other: Additional ROS info: Except as noted in the above Review of Systems and in the History of Present Illness, all other systems have been reviewed and are negative or noncontributory. Physical Exam Vitals & Measurements HR: 72(Peripheral) RR: 16 BP: 124/88 HT: 67 in HT: 170 cm WT: 86.6 kg WT: 190.52 lb BMI: 29.97 HEENT: normal conjunctiva, sclera clear, no scleral icterus, EOM intact, PERRLA, oral mucosa moist without lesions. Neck: trachea midline, no mass, symmetric, no thyromegaly or nodules, no adenopathy Respiratory: lungs CTA, respirations non labored. Cardiovascular: regular rate and rhythm, no murmur, no pedal edema or varicosities. Gastrointestinal: obese, soft, non distended, no tenderness, no masses, no palpable hernias, diastasis recti no, no hepatosplenomegaly; normal bs Lymphatic: no cervical adenopathy, no supraclavicular adenopathy. Musculoskeletal: normal gait, digits and nails without infection, nodes, cyanosis, clubbing. Skin: no rashes, no lesions, no ulcers, no subcutaneous nodules, induration. Psychiatric/Neuro: oriented to time, place, person, judgement normal, affect appropriate for age, insight intact, no focal deficits. Tests: labs reviewed, review of old records completed , Discussed surgical options, risks, and possible complications with patient. Assessment/Plan 1. Anemia (D64.9: Anemia, unspecified) plan colonoscopy under anesthesia, informed consent obtained. 2. Screening for malignant neoplasm of colon (Z12.11: Encounter for screening for malignant neoplasm of colon) see # 1 Follow-up No qualifying data available Problem List/Past Medical History Ongoing Anemia Asthma BMI 29.0-29.9,adult Disc disease, degenerative, cervical Hyperlipidemia Migraines Overweight Screening for malignant neoplasm of colon Historical No qualifying data Procedure/Surgical History History of cervical spine surgery. Medications ferrous sulfate 325 mg Tab, 325 mg= 1 tab(s), Oral, Daily simvastatin 20 mg Tab, 20 mg= 1 tab(s), Oral, qPM Allergies Adhesive Bandage (Rash) No Known Medication Allergies Social History Alcohol Never., 02/08/2024 Substance Abuse Current, Marijuana, 3-5 times per week, 02/09/2024 Tobacco Former smoker, quit more than 30 days ago Tobacco Use:. Never Smokeless Tobacco Use:. Cigarettes, 1 per day. Started age 27.0 Years. Stopped age 50 Years., 02/09/2024 Family History COPD: Mother. Diabetes mellitus type 2: Father and Brother. Heart disease: Mother. Hypertension: Mother and Father. Primary malignant neoplasm of lung: Mother. Immunizations Vaccine Date Status SARS-CoV-2 (COVID-19) mRNA BNT-162b2 vax 09/24/2020 Recorded SARS-CoV-2 (COVID-19) mRNA BNT-162b2 vax 08/22/2020 Recorded [facility] Comment on above: Result Comment: Elec tronically Signed By: ANG LEVIN, Jessica Limon\Date and Time Signed: 02/09/24 13:49 EST Discharge summary note 01-28-2021 Note Date & Type Note Facility 01-28-2021 Note NAME: NICOLETTE GARZA MR#: [id number] ADMIT DATE: 01/28/2021 DISCHARGE DATE: 01/30/2021 DISCHARGE SUMMARY HISTORY OF PRESENT ILLNESS: The patient is a 50-year-old female, who is admitted for cervical spine surgery. For further details of her admitting history, past medical and surgical history, please refer to admitting surgical assessment. HOSPITAL COURSE: The patient was admitted with a diagnosis of HNP with myelopathy, cervical spondylosis. Surgical procedure, risks, benefits, complications, and alternatives were discussed with the patient and consent was obtained to perform surgery, ACDF C3-C4, C4-C5, C5-C6, C6-C7 with cages and plate were performed on 01/28/2021, under general endotracheal anesthesia. She tolerated the procedure well and recovered satisfactorily. Postoperatively, she was complaining of minimal pain around surgical site, which was well controlled with pain medication. She was also complaining of nausea, headache, and loss of appetite, which were evaluated and treated appropriately. The patient was also evaluated by Physical Therapy, Occupational Therapy, and Internal Medicine doctors. Her condition improved gradually. Currently, the patient is pleasant, tolerating diet, ambulating and has good sensation and strength to bilateral upper extremities. The patient is able to plantar and dorsiflex with good strength. No difficulty with breathing or swallowing and voice is strong. Hand mohs surgeon is strong and equal. Incision is well approximated with no drainage, edema, or erythema noted. She denies any numbness, tingling sensation, fever, chills, nausea, vomiting, chest pain, shortness of breath or headache. Overall, she is substantially improved. She was evaluated by the treatment team and judged to be appropriate for discharge. LABORATORY AND TEST RESULTS: The patient had all the routine lab work done and any abnormalities were taken into consideration and were addressed. DIAGNOSES: HNP with myelopathy, cervical spondylosis. DISCHARGE INSTRUCTIONS: The patient was instructed to call 911 or to present to the nearest emergency room in case of any emergencies. She is being discharged on following medication carisoprodol 350 mg tablet per oral 3 times daily as needed, Percocet 5 mg/325 mg tablet 1-2 each per oral every 4-6 hours p.r.n., methylprednisolone 4 mg tablet, for dose see instructions per oral as directed. She was advised to abstain from alcohol, drink lots of fluids, eat fresh fruits and vegetables, walk every hour and perform incentive spirometer 10 times per hour while awake. She was also advised to get all of her prescriptions filled as soon as possible and continue taking all of her [facility] PT NAME: NICOLETTE GARZA MR#: [id number] [address] [place] [address] ACCT: [id number] : 74 DISCHARGE SUMMARY medications as directed and keep all of her outpatient followup appointment as scheduled. She is being discharged back to her home with self care. MD LEONCIO RODRÍGUEZ/MODL/[id number] E/S: Fuentes Moore MD 04/08/21 1225 Electronically Signed [facility] PT NAME: NICOLETTE GARZA MR#: [id number] [address] [place] [address] ACCT: [id number] : [birth year] DISCHARGE SUMMARY [facility] Evaluation + Plan note Note Date & Type Note Facility Evaluation + Plan note No data available for this section [facility] Hospital Discharge instructions Note Date & Type Note Facility Hospital Discharge instructions No data available for this section [facility] Progress note Note Date & Type Note Facility Progress note No data available for this section [facility] Summary Purpose Family History No Family History Records FoundNo Family History Records FoundNo Family History Records Found No data available for this section Advance Directives No Advanced Directives Records FoundNo Advanced Directives Records FoundNo Advanced Directives Records Found Additional Source Comments INFORMATION SOURCE (unrecogn ized section and content) DATE CREATED AUTHOR 05/20/2021 [facility] DATE CREATED AUTHOR AUTHOR'S ORGANIZ ATION 01/04/2022 [facility] DATE CREATED AUTHOR AUTHOR'S ORGANIZ ATION 02/10/2024 [facility] Patient Care team informatio n (unrecognized section and content) Personnel Name: Bassam Worthington MD Address: Address: [address] [place] [address] FOR RECORDS PERTAINING TO PATIENTS WHO ARE OR HAVE BEEN ENROLLED IN A CHEMICAL DEPENDENCY/SUBSTANCEABUSE PROGRAM, SOME INFORMATION MAY BE OMITTED. This clinical summary was aggregated from multiple sources. Caution should be exercised in using it in the provision of clinical care. This summary normalizes information from multiple sources, and as a consequence, information in this document may materially change the coding, format and clinical context of patient data. In addition, data may be omitted in some cases. CLINICAL DECISIONS SHOULD BE BASED ON THE PRIMARY CLINICAL RECORDS. [facility]. provides no warranty or guarantee of the accuracy or completeness of information in this document.
== END 2024-03-01 13:37 | disposition home or self-care (01) ==
LOC: PST 13:36
PROVIDERS: PCP Family Medicine; Visit Provider Surgery
DX: Z01.818 Encounter for other preprocedural examination (principal); D64.9 Anemia, unspecified; Z12.11 Encounter for screening for malignant neoplasm of colon

== ENCOUNTER 2024-03-09 08:49 | Day surgery (SDC) | payer BC, SELFPAY ==
--- NOTE | 2024-03-09 | OP_ITS ---
OPERATION DATE: 03/09/2024 PREOPERATIVE DIAGNOSIS: Anemia, colorectal screening. POSTOPERATIVE DIAGNOSIS: Normal colonoscopy to cecum. PROCEDURE: Colonoscopy to cecum. SURGEON: Brett Franco M.D. ANESTHESIA: Monitored anesthesia care. ESTIMATED BLOOD LOSS: Zero. INDICATIONS AND CONSENT: Patient is a 53-year-old female who presents for evaluation of anemia. Indications, risks, benefits, alternatives of proceeding with colonoscopy were explained extensively to the patient, including the risks of bleeding, colon perforation or anesthetic complications. All of her questions were answered. Informed consent was obtained. PROCEDURE: Patient brought to the operating room, placed in the left lateral decubitus position. Monitored anesthesia care was provided. Rectal exam was performed which revealed no masses or blood. The scope was inserted into the anal canal. Under direct visualization was advanced. It was advanced to the cecum where cecal markings were clearly identified. Upon withdrawal of the scope, mucosal surfaces were carefully examined. There were no mass lesions or polyps. No inflammatory changes or ulcerations. No significant diverticulosis. The scope was retroflexed in the anal canal. There were some prominent rectal veins. No significant hemorrhoidal disease. Scope was then withdrawn. Patient tolerated procedure well, was sent to recovery room in good condition.f/u screening colonoscopy should be in 10 years. CC: David Worthington M.D. RODRIGO
[2024-03-09 09:00] VITALS: BP 128/89; PULSE 81; TEMP 36.4; O2SAT 94; BMI 29.3
--- OUTSIDE RECORDS SUMMARY | 2024-03-09 09:11 | XMS_ITS | CCD ---
Author Organization [facility] Care Team Providers Care Shorer Name Role Phone CK RODAS Attending Unavailable [...] Medication Allergies] Propensity to adverse reactions (disorder) [facility] Repository (1 source) Adhesive bandage Propensity to adverse reactions to substance Eruption of skin (disorder) [facility] NEGATED: Highlighted row has been ruled out! (1 source) Drug allergy [facility] Medications Current Medications Medication Drug Class(es) Dates [...] for choosing us for your care. Normal [facility] T4, T3U, FTI LABCORPon 12-14 Free Thyroxine Index 2.4 Normal 1.2-4.9 [facility] Comment on above: Performed By: #### T HYLC #### [facility] [address] [place] [address] Dr. Prateek Andre T3 Uptake 26 % Normal 24-39 [facility] Comment on above: Performed By: #### T HYLC #### [facility] [address] [place] [address] Dr. Prateek Andre T4 [Mass/Vol] 9.1 ug/dL Normal 4.5-12.0 [facility] Comment on above: Performed By: #### T HYLC #### [facility] [address] [place] [address] Dr. Prateek Andre CBC AUTO DIFFon 12-13-2021 BASO # 0.1 103/ul Normal 0.0-0.1 [facility] Comment on above: Performed By: #### C BC #### [facility] [address] [place] [address] Dr. Prateek Andre Basophils/100 WBC (Bld) 1.2 % Normal 0.2-2.0 [facility] Comment on above: Performed By: #### C BC #### [facility] [address] [place] [address] Dr. Prateek Andre EO # 0.2 103/ul Normal 0.0-0.7 [facility] Comment on above: Performed By: #### C BC #### [facility] [address] [place] [address] Dr. Prateek Andre Eosinophils/100 WBC (Bld) 3.5 % Normal 0.9-7.0 [facility] Comment on above: Performed By: #### C BC #### [facility] [address] [place] [address] Dr. Prateek Andre Erythrocyte distribution width (RBC) [Ratio] 15.5 % Critically high 11.0-15.0 [facility] Comment on above: Performed By: #### C BC #### [facility] [address] [place] [address] Dr. Prateek Andre Hematocrit (Bld) [Volume fraction] 38.5 % Normal 36.0-48.0 [facility] Comment on above: Performed By: #### C BC #### [facility] [address] [place] [address] Dr. Prateek Andre Hemoglobin (Bld) [Mass/Vol] 12.6 g/dL Normal 12.0-16.0 [facility] Comment on above: Performed By: #### C BC #### [facility] [address] [place] [address] Dr. Prateek Andre IG # 0.04 10e3/ul Critically high 0.00-0.03 [facility] Comment on above: Performed By: #### C BC #### [facility] [address] [place] [address] Dr. Prateek Andre IG % 0.6 % Critically high 0.0-0.5 [facility] Comment on above: Performed By: #### C BC #### [facility] [address] [place] [address] Dr. Prateek Andre LYMPH # 2.2 103/ul Normal 1.2-3.8 [facility] Comment on above: Performed By: #### C BC #### [facility] [address] [place] [address] Dr. Prateek Andre Lymphocytes/100 WBC (Bld) 33.5 % Normal 20.5-60.0 [facility] Comment on above: Performed By: #### C BC #### [facility] [address] [place] [address] Dr. Prateek Andre MANUAL DIFF REQ NO Normal [facility] Comment on above: Performed By: #### C BC #### [facility] [address] [place] [address] Dr. Prateek Andre MCH (RBC) [Entitic mass] 30.7 pg Normal 26.7-34.0 [facility] Comment on above: Performed By: #### C BC #### [facility] [address] [place] [address] Dr. Prateek Andre MCHC (RBC) [Mass/Vol] 32.7 g/dL Normal 29.9-35.2 [facility] Comment on above: Performed By: #### C BC #### [facility] [address] [place] [address] Dr. Prateek Andre MCV (RBC) [Entitic vol] 93.7 fL Normal 81.0-99.0 [facility] Comment on above: Performed By: #### C BC #### [facility] [address] [place] [address] Dr. Prateek Andre MONO # 0.9 103/ul Critically high 0.3-0.8 [facility] Comment on above: Performed By: #### C BC #### [facility] [address] [place] [address] Dr. Prateek Andre Monocytes/100 WBC (Bld) 13.6 % Critically high 1.7-12.0 [facility] Comment on above: Performed By: #### C BC #### [facility] [address] [place] [address] Dr. Prateek Andre NEUT # 3.2 103/ul Normal 1.4-6.5 [facility] Comment on above: Performed By: #### C BC #### [facility] [address] [place] [address] Dr. Prateek Andre Neutrophils/100 WBC (Bld) 47.6 % Normal 43.0-75.0 [facility] Comment on above: Performed By: #### C BC #### [facility] [address] [address] [address] Prateek Andre Platelet mean volume (Bld) [Entitic vol] 9.1 fL Critically low 9.5-13.5 [facility] Comment on above: Performed By: #### C BC #### [facility] [address] [address] [address] Prateek Andre PLT 423 103/ul Normal 150-450 [facility] Comment on above: Performed By: #### C BC #### [facility] [address] [address] [address] Prateek Andre RBC 4.11 106/ul Critically low 4.20-5.40 [facility] Comment on above: Performed By: #### C BC #### [facility] [address] [address] [address] Prateek Andre WBC 6.6 103/ul Normal 4.0-11.0 [facility] Comment on above: Performed By: #### C BC #### [facility] [address] [address] [address] Prateek Andre GLYCOHEMOGLOBIN A1Con 2021 ADA RECOMMENDATION SEE BELOW Normal [facility] Comment on above: Result Comment: ADA RECOMMENDED LIMIT 4.0 - 6.0 ADA THERAPEUTIC TARGET < 7.0 ACTION SUGGESTED > 7.0 Performed By: #### A 1C ####[facility] [id number] [address]Dr. Prateek Andre Glucose [Mass/Vol] 108 mg/dL Normal [facility] Comment on above: Performed By: #### A 1C ####[facility] [id number] [id number]. Prateek Andre HbA1c (Bld) [Mass fraction] 5.4 % Normal 4.5-6.2 [facility] Comment on above: Performed By: #### A 1C ####[facility] [id number] [address]Dr. Prateek Andre LIPID PROFILEon 12-13-2021 CHOL-HDL RATIO NORM SEE BELOW Normal [facility] Comment on above: Result Comment: 3.3 - 4.4 LOW RISK 4.4 - 7.1 AVERAGE RISK 7.1 - 11.0 MODERATE RISK >11.0 HIGH RISK Performed By: #### C MP, LIPID, TSH #### [facility] [address] [address] [address] Prateek Andre Cholesterol [Mass/Vol] 251 mg/dL Critically high <=200 [facility] Comment on above: Performed By: #### C MP, LIPID, TSH #### [facility] [address] [address] [address] Prateek Andre Cholesterol in HDL [Mass/Vol] 78 mg/dL Critically high 40-60 [facility] Comment on above: Performed By: #### C MP, LIPID, TSH #### [facility] [address] [address] [address] Prateek Andre Cholesterol in LDL [Mass/Vol] 165.2 mg/dL Normal [facility] Comment on above: Performed By: #### C MP, LIPID, TSH #### [facility] [address] [address] [address] Prateek Andre Cholesterol.total/Cho lesterol in HDL [Mass ratio] 3.2 {ratio} Normal [facility] Comment on above: Performed By: #### C MP, LIPID, TSH #### [facility] [address] [address] [address] Prateek Andre HDL NORMAL > or = 60 mg/dl - LO W CARDIOVASCULAR RISK <40 mg/dl - HIGH CARDIOVASCULAR RISK Normal [facility] Comment on above: Performed By: #### C MP, LIPID, TSH #### [facility] [address] [address] [address] Prateek Andre LDL CALC NORMAL SEE BELOW Normal [facility] Comment on above: Result Comment: <100 mg/dl OPTIMAL 100 - 129 mg/dl NEAR OR ABOVE OPTIMAL 130 - 159 mg/dl BORDERLINE HIGH 160 - 189 mg/dl HIGH >190 mg/dl VERY HIGH Performed By: #### C MP, LIPID, TSH #### [facility] [address] [place] [address] Dr. Prateek Andre Triglyceride [Mass/Vol] 39 mg/dL Normal <=150 [facility] Comment on above: Performed By: #### C MP, LIPID, TSH #### [facility] [address] [place] [address] Dr. Prateek Andre VLDL CALC 7.8 mg/dL Normal [facility] Comment on above: Performed By: #### C MP, LIPID, TSH #### [facility] [address] [address] [address] Prateek Andre PROF 14(COMP METB)on 022 Albumin [Mass/Vol] 4.0 g/dL Normal 3.4-5.0 [facility] Comment on above: Performed By: #### C MP, LIPID, TSH #### [facility] [address] [place] [address] Dr. Prateek Andre Albumin/Globulin [Mass ratio] 1.1 {ratio} Normal [facility] Comment on above: Performed By: #### C MP, LIPID, TSH #### [facility] [address] [place] [address] Dr. Prateek Andre ALP [Catalytic activity/Vol] 75 U/L Normal 46-116 [facility] Comment on above: Performed By: #### C MP, LIPID, TSH #### [facility] [address] [place] [address] Dr. Prateek Andre ALT [Catalytic activity/Vol] 15 U/L Normal 14-59 [facility] Comment on above: Performed By: #### C MP, LIPID, TSH #### [facility] [address] [place] [address] Dr. Prateek Andre Anion gap [Moles/Vol] 11.3 mmol/L Normal [facility] Comment on above: Performed By: #### C MP, LIPID, TSH #### [facility] [address] [place] [address] Dr. Prateek Andre AST [Catalytic activity/Vol] 15 U/L Normal 15-37 [facility] Comment on above: Performed By: #### C MP, LIPID, TSH #### [facility] [address] [address] [address] Prateek Andre Bilirubin [Mass/Vol] 0.5 mg/dL Normal 0.2-1.0 [facility] Comment on above: Performed By: #### C MP, LIPID, TSH #### [facility] [address] [address] [address] Prateek Andre Calcium [Mass/Vol] 9.3 mg/dL Normal 8.5-10.1 [facility] Comment on above: Performed By: #### C MP, LIPID, TSH #### [facility] [address] [address] [address] Prateek Andre Chloride [Moles/Vol] 106 mmol/L Normal 98-107 [facility] Comment on above: Performed By: #### C MP, LIPID, TSH #### [facility] [address] [place] [address] Dr. Prateek Andre CO2 [Moles/Vol] 29.2 mmol/L Normal 21.0-32.0 [facility] Comment on above: Performed By: #### C MP, LIPID, TSH #### [facility] [address] [address] [address] Prateek Andre Creatinine [Mass/Vol] 0.77 mg/dL Normal 0.55-1.02 [facility] Comment on above: Performed By: #### C MP, LIPID, TSH #### [facility] [address] [place] [address] Dr. Prateek Andre EGFR-AF KYRGYZ >60 Normal >=60 [facility] Comment on above: Performed By: #### C MP, LIPID, TSH #### [facility] [address] [place] [address] Dr. Prateek Andre EGFR-NON AF KYRGYZ >60 Normal >=60 [facility] Comment on above: Performed By: #### C MP, LIPID, TSH #### [facility] [address] [address] [address] Prateek Andre Globulin (S) [Mass/Vol] 3.6 g/dL Normal [facility] Comment on above: Performed By: #### C MP, LIPID, TSH #### [facility] [address] [address] [address] Prateek Andre Glucose [Mass/Vol] 90 mg/dL Normal 74-106 [facility] Comment on above: Performed By: #### C MP, LIPID, TSH #### [facility] [address] [place] [address] Dr. Prateek Andre Potassium [Moles/Vol] 4.5 mmol/L Normal 3.5-5.1 [facility] Comment on above: Performed By: #### C MP, LIPID, TSH #### [facility] [address] [place] [address] Dr. Prateek Andre Protein [Mass/Vol] 7.6 g/dL Normal 6.4-8.2 [facility] Comment on above: Performed By: #### C MP, LIPID, TSH #### [facility] [address] [place] [address] Dr. Prateek Andre Sodium [Moles/Vol] 142 mmol/L Normal 136-145 [facility] Comment on above: Performed By: #### C MP, LIPID, TSH #### [facility] [address] [place] [address] Dr. Prateek Andre Urea nitrogen [Mass/Vol] 13.0 mg/dL Normal 7.0-18.0 [facility] Comment on above: Performed By: #### C MP, LIPID, TSH #### [facility] [address] [place] [address] Dr. Prateek Andre Urea nitrogen/Creatinine [Mass ratio] 16.9 mg/mg Normal [facility] Comment on above: Performed By: #### C MP, LIPID, TSH #### [facility] [address] [place] [address] Dr. Prateek Andre TSHon 12-13-2021 TSH 1.393 uIU/mL Normal 0.358-3.740 [facility] Comment on above: Performed By: #### C MP, LIPID, TSH #### [facility] [address] [place] [address] Dr. Prateek Andre CBC AUTO DIFFon 09-21-2021 BASO # 0.0 103/ul Normal 0.0-0.1 [facility] Comment on above: Performed By: #### C BC #### [facility] [address] [place] [address] Dr. Prateek Andre Basophils/100 WBC (Bld) 0.3 % Normal 0.2-2.0 [facility] Comment on above: Performed By: #### C BC #### [facility] [address] [place] [address] Dr. Prateek Andre EO # 0.0 103/ul Normal 0.0-0.7 [facility] Comment on above: Performed By: #### C BC #### [facility] [address] [place] [address] Dr. Prateek Andre Eosinophils/100 WBC (Bld) 0.0 % Critically low 0.9-7.0 [facility] Comment on above: Performed By: #### C BC #### [facility] [address] [place] [address] Dr. Prateek Andre Erythrocyte distribution width (RBC) [Ratio] 14.6 % Normal 11.0-15.0 [facility] Comment on above: Performed By: #### C BC #### [facility] [address] [place] [address] Dr. Prateek Andre Hematocrit (Bld) [Volume fraction] 40.7 % Normal 36.0-48.0 [facility] Comment on above: Performed By: #### C BC #### [facility] [address] [place] [address] Dr. Prateek Andre Hemoglobin (Bld) [Mass/Vol] 12.9 g/dL Normal 12.0-16.0 [facility] Comment on above: Performed By: #### C BC #### [facility] [address] [place] [address] Dr. Prateek Andre IG # 0.07 10e3/ul Critically high 0.00-0.03 [facility] Comment on above: Performed By: #### C BC #### [facility] [address] [place] [address] Dr. Prateek Andre IG % 0.6 % Critically high 0.0-0.5 [facility] Comment on above: Performed By: #### C BC #### [facility] [address] [place] [address] Dr. Prateek Andre LYMPH # 1.2 103/ul Normal 1.2-3.8 [facility] Comment on above: Performed By: #### C BC #### [facility] [address] [place] [address] Dr. Prateek Andre Lymphocytes/100 WBC (Bld) 10.2 % Critically low 20.5-60.0 [facility] Comment on above: Performed By: #### C BC #### [facility] [address] [place] [address] Dr. Prateek Andre MANUAL DIFF REQ NO Normal [facility] Comment on above: Performed By: #### C BC #### [facility] [address] [place] [address] Dr. Prateek Andre MCH (RBC) [Entitic mass] 29.5 pg Normal 26.7-34.0 [facility] Comment on above: Performed By: #### C BC #### [facility] [address] [place] [address] Dr. Prateek Andre MCHC (RBC) [Mass/Vol] 31.7 g/dL Normal 29.9-35.2 [facility] Comment on above: Performed By: #### C BC #### [facility] [address] [place] [address] Dr. Prateek Andre MCV (RBC) [Entitic vol] 92.9 fL Normal 81.0-99.0 [facility] Comment on above: Performed By: #### C BC #### [facility] [address] [place] [address] Dr. Prateek Andre MONO # 0.9 103/ul Critically high 0.3-0.8 [facility] Comment on above: Performed By: #### C BC #### [facility] [address] [place] [address] Dr. Prateek Andre Monocytes/100 WBC (Bld) 8.1 % Normal 1.7-12.0 [facility] Comment on above: Performed By: #### C BC #### [facility] [address] [place] [address] Dr. Prateek Andre NEUT # 9.4 103/ul Critically high 1.4-6.5 [facility] Comment on above: Performed By: #### C BC #### [facility] [address] [place] [address] Dr. Prateek Andre Neutrophils/100 WBC (Bld) 80.8 % Critically high 43.0-75.0 [facility] Comment on above: Performed By: #### C BC #### [facility] [address] [place] [address] Dr. Prateek Andre Platelet mean volume (Bld) [Entitic vol] 9.7 fL Normal 9.5-13.5 [facility] Comment on above: Performed By: #### C BC #### [facility] [address] [place] [address] Dr. Prateek Andre PLT 390 103/ul Normal 150-450 [facility] Comment on above: Performed By: #### C BC #### [facility] [address] [place] [address] Dr. Prateek Andre RBC 4.38 106/ul Normal 4.20-5.40 [facility] Comment on above: Performed By: #### C BC #### [facility] [address] [place] [address] Dr. Prateek Andre WBC 11.6 103/ul Critically high 4.0-11.0 [facility] Comment on above: Performed By: #### C BC #### [facility] [address] [place] [address] Dr. Prateek Andre CTA CHEST WO W [...] by: KIKO DIEHL Date: 2021-09-21 12:55 Normal [facility] ER URINE PROFILEon 2 Bilirubin Ql (U) Negative Normal NEGATIVE [facility] Comment on above: Performed By: #### U MICRO, ERUR #### [facility] [address] [place] [address] Dr. Prateek Andre Clarity (U) CLEAR Normal CLEAR [facility] Comment on above: Performed By: #### U MICRO, ERUR #### [facility] [address] [place] [address] Dr. Prateek Andre Color (U) LT. YELLOW Normal YELLOW [facility] Comment on above: Performed By: #### U MICRO, ERUR #### [facility] [address] [place] [address] Dr. Prateek GONSALVES A micrscopic examination will be performed if indicated. Normal [facility] Comment on above: Performed By: #### U MICRO, ERUR #### [facility] [address] [place] [address] Dr. Prateek Andre Glucose Ql (U) Negative Normal NEGATIVE [facility] Comment on above: Performed By: #### U MICRO, ERUR #### [facility] [address] [address] [address] Prateek Andre Hemoglobin Ql (U) TRACE-INTACT Abnormal NEGATIVE [facility] Comment on above: Performed By: #### U MICRO, ERUR #### [facility] [address] [address] [address] Prateek Andre Ketones Ql (U) Negative Normal NEGATIVE [facility] Comment on above: Performed By: #### U MICRO, ERUR #### [facility] [address] [place] [address] Dr. Prateek Andre LEUKOCYTES Negative Normal NEGATIVE [facility] Comment on above: Performed By: #### U MICRO, ERUR #### [facility] [address] [place] [address] Dr. Prateek Andre Nitrite Ql (U) Negative Normal NEGATIVE [facility] Comment on above: Performed By: #### U MICRO, ERUR #### [facility] [address] [place] [address] Dr. Prateek Andre pH (U) 6.0 [pH] Normal 5-9 [facility] Comment on above: Performed By: #### U MICRO, ERUR #### [facility] [address] [place] [address] Dr. Prateek Andre SPEC GRAVITY 1.005 Normal 1.005-<=1.025 [facility] Comment on above: Performed By: #### U MICRO, ERUR #### [facility] [address] [place] [address] Dr. Prateek Andre UA PROTEIN Negative Normal NEGATIVE/ TRACE [facility] Comment on above: Performed By: #### U MICRO, ERUR #### [facility] [address] [place] [address] Dr. Prateek Andre UR MICRO IND INDICATED Normal [facility] Comment on above: Performed By: #### U MICRO, ERUR #### [facility] [address] [place] [address] Dr. Prateek Andre Urobilinogen Qn (U) 0.2 {Garth'U}/dL Normal 0.2 - 1. 0 [facility] Comment on above: Performed By: #### U MICRO, ERUR #### [facility] [address] [address] [address] Prateek Andre PROF 14(COMP METB)on 022 Albumin [Mass/Vol] 4.2 g/dL Normal 3.4-5.0 [facility] Comment on above: Performed By: #### C PACO, HSTROPN ####[facility] [id number] [address]Dr. Prateek Andre Albumin/Globulin [Mass ratio] 1.0 {ratio} Normal [facility] Comment on above: Performed By: #### C PACO, HSTROPN ####[facility] [id number] [address]Dr. Prateek Andre ALP [Catalytic activity/Vol] 96 U/L Normal 46-116 [facility] Comment on above: Performed By: #### C PACO, HSTROPN ####[facility] [id number] [address]Dr. Prateek Andre ALT [Catalytic activity/Vol] 14 U/L Normal 14-59 [facility] Comment on above: Performed By: #### C PACO, HSTROPN ####[facility] [id number] [address]Dr. Prateek Andre Anion gap [Moles/Vol] 14.0 mmol/L Normal [facility] Comment on above: Performed By: #### C PACO, HSTROPN ####[facility] [address] [place] [address] [address]Dr. Prateek Andre AST [Catalytic activity/Vol] 13 U/L Critically low 15-37 [facility] Comment on above: Performed By: #### C PACO, HSTROPN ####[facility] [address] [place] [address]Dr. Prateek Andre Bilirubin [Mass/Vol] 0.3 mg/dL Normal 0.2-1.0 [facility] Comment on above: Performed By: #### C MP, HSTROPN ####[facility] [address] [address]Dr. Prateek Andre Calcium [Mass/Vol] 9.8 mg/dL Normal 8.5-10.1 [facility] Comment on above: Performed By: #### C MP, HSTROPN ####[facility] [address] [place] [address]Dr. Prateek Andre Chloride [Moles/Vol] 106 mmol/L Normal 98-107 [facility] Comment on above: Performed By: #### C MP, HSTROPN ####[facility] [address] [place] [address]Dr. Prateek Andre CO2 [Moles/Vol] 23.7 mmol/L Normal 21.0-32.0 [facility] Comment on above: Performed By: #### C PACO, HSTROPN ####[facility] [address] [place], [place] [address]Dr. Prateek Andre Creatinine [Mass/Vol] 0.86 mg/dL Normal 0.55-1.02 [facility] Comment on above: Performed By: #### C PACO, HSTROPN ####[facility] [address] [place], [place] [address]Dr. Prateek Andre EGFR-AF KYRGYZ >60 Normal >=60 [facility] Comment on above: Performed By: #### C MP, HSTROPN ####[facility] [address] [place], [place] [address]Dr. Prateek Andre EGFR-NON AF KYRGYZ >60 Normal >=60 [facility] Comment on above: Performed By: #### C MP, HSTROPN ####[facility] [address] [place], [place] [address]Dr. Prateek Andre Globulin (S) [Mass/Vol] 4.2 g/dL Normal [facility] Comment on above: Performed By: #### C MP, HSTROPN ####[facility] [address] [place], [place] [address]Dr. Prateek Andre Glucose [Mass/Vol] 117 mg/dL Critically high 74-106 [facility] Comment on above: Performed By: #### C MP, HSTROPN ####[facility] [address] [place] [address]Dr. Prateek Andre Potassium [Moles/Vol] 3.7 mmol/L Normal 3.5-5.1 [facility] Comment on above: Performed By: #### C MP, HSTROPN ####[facility] [address] [place] [address]Dr. Prateek Andre Protein [Mass/Vol] 8.4 g/dL Critically high 6.4-8.2 [facility] Comment on above: Performed By: #### C MP, HSTROPN ####[facility] [address] [place] [address]Dr. Prateek Andre Sodium [Moles/Vol] 140 mmol/L Normal 136-145 [facility] Comment on above: Performed By: #### C MP, HSTROPN ####[facility] [address] [address]Dr. Prateek Andre Urea nitrogen [Mass/Vol] 14.0 mg/dL Normal 7.0-18.0 [facility] Comment on above: Performed By: #### C MP, HSTROPN ####[facility] [address] [place] [address]Dr. Prateek Andre Urea nitrogen/Creatinine [Mass ratio] 16.3 mg/mg Normal [facility] Comment on above: Performed By: #### C MP, HSTROPN ####[facility] [address] [place] [address]Dr. Prateek Andre TROPONIN, HIGH SENSITIVITYon 09-21-2021 HSTROP 5.3 pg/mL Normal 4.0-51.3 [facility] Comment on above: Result Comment: CUT- OFF POINTS HAVE BEEN ESTABLISHED BASED ON THE FOURTH UNIVERSAL DEFINITIONS OF MYOCARDIAL INFARCTION. THE UPPER REFERENCE LIMIT (URL) OF TROPONIN, DEFINED THE 99TH PERCENTILE OF cTnI DISTRIBUTION IN A REFERENCE POPULATION, HAS BEEN CONFIRMED THE DECISION THRESHOLD FOR MT DIAGNOSIS. Performed By: #### C MP, HSTROPN #### [facility] [address] [address] [address] Prateek Andre URINE MICROSCOPIC ONLYon BACTERIA NONE SEEN Normal NONE SEEN [facility] Comment on above: Performed By: #### U MICRO, ERUR #### [facility] [address] [place] [address] Dr. Prateek Andre Bacteria identified Cx Nom (U) NOT INDICATED Normal [facility] Comment on above: Performed By: #### U MICRO, ERUR #### [facility] [address] [place] [address] Dr. Prateek Andre CAST NONE SEEN Normal NONE SEEN [facility] Comment on above: Performed By: #### U MICRO, ERUR #### [facility] [address] [place] [address] Dr. Prateek Andre Crystals LM Nom (Urine sed) NONE SEEN Normal NONE SEEN [facility] Comment on above: Performed By: #### U MICRO, ERUR #### [facility] [address] [place] [address] Dr. Prateek Andre Epithelial cells LM Ql (Urine sed) FEW Abnormal NONE SEEN /RARE [facility] Comment on above: Performed By: #### U MICRO, ERUR #### [facility] [address] [place] [address] Dr. Prateek Andre MUCOUS NONE SEEN Normal NONE SEEN [facility] Comment on above: Performed By: #### U MICRO, ERUR #### [facility] [address] [place] [address] Dr. Prateek Andre RBC 0-2 Normal 0-2 [facility] Comment on above: Performed By: #### U MICRO, ERUR #### [facility] [address] [place] [address] Dr. Prateek Andre WBC NONE SEEN Normal NONE SEEN [facility] Comment on above: Performed By: #### U MICRO, ERUR #### [facility] [address] [place] [address] Dr. Prateek Andre CERVICAL SP AP&LT OR 2-3 VWS on 01-12-2022 CERVICAL SP AP&LT OR 2-3 VWS STUDY: CERVICAL SP AP LT OR 2-3 VWS; 04/17/2021 10:28 am INDICATION: PAIN. COMPARISON: 03/06/2021 ACCESSION NUMBER(S): [id number] ORDERING CLINICIAN: Fuentes Moore FINDINGS: Anterior fusion hardware with metallic interbody grafts from C3-C7 unchanged. No new fracture, subluxation, or disc height loss. Trace anterolisthesis C2-3. Degenerative changes appear similar to prior exam. IMPRESSION: Unchanged postoperative appearance of the cervical spine. Normal [facility] CERVICAL SP AP&LT OR 2-3 VWS on 03-06-2021 CERVICAL SP AP&LT OR 2-3 VWS STUDY: CERVICAL SP AP LT OR 2-3 VWS; 03/06/2021 10:20 am INDICATION: PAIN. COMPARISON: 02/15/2021 ACCESSION NUMBER(S): [id number] ORDERING CLINICIAN: Fuentes Moore TECHNIQUE: Weightbearing AP and lateral images of the cervical spine were obtained. FINDINGS: The patient is status post anterior fusion from C3-C7. There are disc space grafts from C3-C7. The hardware appears intact. The prevertebral soft tissues are unremarkable. COMPARISON OF FINDINGS: The spine is similar to the prior exam. IMPRESSION: Status post anterior fusion. No acute findings. Normal [facility] CERVICAL SP AP&LAT OR 2-3 VW Son 02-15-2021 CERVICAL SP AP&LAT OR 2-3 VWS STUDY: CERVICAL SP AP LAT OR 2-3 VWS; 02/15/2021 10:06 am INDICATION: DISC HERNIATION. COMPARISON: 01/28/2021 ACCESSION NUMBER(S): [id number] ORDERING CLINICIAN: Fuentes Moore TECHNIQUE: AP and lateral images of cervical spine were obtained FINDINGS: The patient is status post anterior fusion from C3-C7. There are metallic grafts between C3-C7. The hardware appears intact. COMPARISON OF FINDINGS: The appearance and alignment is similar to the prior exam. IMPRESSION: Status post anterior fusion and disc space grafts. No obvious acute finding. Normal [facility] BASIC MET PANELon 01-30-2021 Anion gap [Moles/Vol] 7 mmol/L Normal 6-18 [facility] Comment on above: Order Comment: CONSE RVATION Performed By: #### L 500.82927, L500.67083 #### Test performed at: [address] [address] Calcium [Mass/Vol] 9.1 mg/dL Normal 8.5-10.1 [facility] Comment on above: Order Comment: CONSE RVATION Performed By: #### L 500.18963, L500.56454 #### Test performed at: [address] [address] Chloride [Moles/Vol] 100 mmol/L Normal 98-107 [facility] Comment on above: Order Comment: CONSE RVATION Performed By: #### L 500.25441, L500.25795 #### Test performed at: [address] [address] CO2 [Moles/Vol] 31 mmol/L Normal 21-32 [facility] Comment on above: Order Comment: CONSE RVATION Performed By: #### L 500.11027, L500.32915 #### Test performed at: [address] [address] Creatinine [Mass/Vol] 0.672 mg/dL Normal 0.550-1.020 [facility] Comment on above: Order Comment: CONSE RVATION Performed By: #### L 500.70774, L500.94164 #### Test performed at: [address] [address] Glucose [Mass/Vol] 98 mg/dL Normal 70-99 [facility] Comment on above: Order Comment: CONSE RVATION Result Comment: Fast ing GLUCOSE reference range has been updated per (ADA) [place] [employer]'s recommendation. 06/29/2018 Performed By: #### L 500.63270, L500.63083 #### Test performed at: [address] [address] OSM 278 mosm/kg Normal 270-300 [facility] Comment on above: Order Comment: CONSE RVATION Performed By: #### L 500.72313, L500.43960 #### Test performed at: [address] [address] Potassium [Moles/Vol] 3.9 mmol/L Normal 3.5-5.1 [facility] Comment on above: Order Comment: CONSE RVATION Performed By: #### L 500.21888, L500.82296 #### Test performed at: [address] [address] Sodium [Moles/Vol] 134 mmol/L Low 136-145 [facility] Comment on above: Order Comment: CONSE RVATION Performed By: #### L 500.96641, L500.26182 #### Test performed at: [address] [address] Urea nitrogen [Mass/Vol] 14 mg/dL Normal 7-18 [facility] Comment on above: Order Comment: CONSE RVATION Performed By: #### L 500.85800, L500.14306 #### Test performed at: [address] [address] CBC W/DIFFon 01-30-2021 BASO ABS 0.0 K/uL Normal 0.0-0.2 [facility] Comment on above: Order Comment: CONSE RVATION Performed By: #### L 500.52996, L500.12593 #### Test performed at: [address] [address] Basophils/100 WBC (Bld) 0.1 % Normal [facility] Comment on above: Order Comment: CONSE RVATION Performed By: #### L 500.20794, L500.20112 #### Test performed at: [address] [address] EOS ABS 0.0 K/uL Normal 0.0-0.5 [facility] Comment on above: Order Comment: CONSE RVATION Performed By: #### L 500.10412, L500.49609 #### Test performed at: [address] [address] Eosinophils/100 WBC (Bld) 0.1 % Normal [facility] Comment on above: Order Comment: CONSE RVATION Performed By: #### L 500.76894, L500.35422 #### Test performed at: [address] [address] IG % 0.3 % Normal [facility] Comment on above: Order Comment: CONSE RVATION Performed By: #### L 500.20715, L500.90403 #### Test performed at: [address] [address] IG ABS 0.05 K/uL Normal 0-0.05 [facility] Comment on above: Order Comment: CONSE RVATION Performed By: #### L 500.22973, L500.89301 #### Test performed at: [address] [address] Lymphocytes (Bld) [#/Vol] 3.5 10*3/uL Normal 1.2-3.5 [facility] Comment on above: Order Comment: CONSE RVATION Performed By: #### L 500.78515, L500.96214 #### Test performed at: [address] [address] Lymphocytes/100 WBC (Bld) 24.4 % Normal [facility] Comment on above: Order Comment: CONSE RVATION Performed By: #### L 500.47352, L500.56011 #### Test performed at: [address] [address] MONO ABS 2.4 K/uL High 0.0-1.0 [facility] Comment on above: Order Comment: CONSE RVATION Performed By: #### L 500.99247, L500.12656 #### Test performed at: [address] [address] Monocytes/100 WBC (Bld) 16.8 % Normal [facility] Comment on above: Order Comment: CONSE RVATION Performed By: #### L 500.75195, L500.54542 #### Test performed at: [address] [address] NEUTROPHIL ABS 8.4 K/uL High 1.4-6.6 [facility] Comment on above: Order Comment: CONSE RVATION Performed By: #### L 500.86278, L500.54405 #### Test performed at: [address] [address] Neutrophils/100 WBC (Bld) 58.3 % Normal [facility] Comment on above: Order Comment: CONSE RVATION Performed By: #### L 500.67588, L500.53258 #### Test performed at: [address] [address] SCREEN REQUIRED YES Normal [facility] Comment on above: Order Comment: CONSE RVATION Result Comment: Lucero pheral Smear reviewed by technologist. Performed By: #### L 500.51803, L500.54434 #### Test performed at: [address] [address] Erythrocyte distribution width (RBC) [Ratio] 14.8 % High 11.5-14.5 [facility] Comment on above: Order Comment: CONSE RVATION Performed By: #### L 500.16712, L500.28746 #### Test performed at: [address] [address] Hematocrit (Bld) [Volume fraction] 30.3 % Low 36.0-48.0 [facility] Comment on above: Order Comment: CONSE RVATION Performed By: #### L 500.18773, L500.49858 #### Test performed at: [address] [address] Hemoglobin (Bld) [Mass/Vol] 10.0 g/dL Low 12.0-15.0 [facility] Comment on above: Order Comment: CONSE RVATION Performed By: #### L 500.90708, L500.17855 #### Test performed at: [address] [address] MCH (RBC) [Entitic mass] 30.2 pg Normal 25.4-34.6 [facility] Comment on above: Order Comment: CONSE RVATION Performed By: #### L 500.40627, L500.58094 #### Test performed at: [address] [address] MCHC (RBC) [Mass/Vol] 33.0 g/dL Normal 31.5-36.5 [facility] Comment on above: Order Comment: CONSE RVATION Performed By: #### L 500.07960, L500.39986 #### Test performed at: [address] [address] MCV (RBC) [Entitic vol] 91.5 fL Normal 79.0-98.0 [facility] Comment on above: Order Comment: CONSE RVATION Performed By: #### L 500.81366, L500.13356 #### Test performed at: [address] [address] NRBC # 0.000 K/uL Normal 0-0.012 [facility] Comment on above: Order Comment: CONSE RVATION Performed By: #### L 500.25793, L500.37149 #### Test performed at: [place] [id number] NRBC % 0.0 /100 WBC Normal 0-0.2 [facility] Comment on above: Order Comment: CONSE RVATION Performed By: #### L 500.97685, L500.32056 #### Test performed at: [address] [address] Platelet mean volume (Bld) [Entitic vol] 9.9 fL Normal 8.7-12.4 [facility] Comment on above: Order Comment: CONSE RVATION Performed By: #### L 500.41973, L500.09351 #### Test performed at: [address] [address] Platelets (Bld) [#/Vol] 294 10*3/uL Normal 140-440 [facility] Comment on above: Order Comment: CONSE RVATION Performed By: #### L 500.39959, L500.69539 #### Test performed at: [place] [address] RBC (Bld) [#/Vol] 3.31 10*6/uL Low 3.5-5.5 [facility] Comment on above: Order Comment: CONSE RVATION Performed By: #### L 500.56984, L500.98743 #### Test performed at: [address] [address] WBC (Bld) [#/Vol] 14.4 10*3/uL High 3.9-11.0 [facility] Comment on above: Order Comment: CONSE RVATION Performed By: #### L 500.65403, L500.10064 #### Test performed at: [place] [id number] Discharge CCD Assessmenton Discharge CCD Assessment [facility] Patient: NICOLETTE GARZA [address] [place], [place] [id number] MR#: [id number] DISCHARGE CCD ASSESSMENT : 74 Service Date: 01/30/21 1503 Discharge CCD Assessment Assessment Patient discharged home to continue pain control, wound care, and exercises. Electronically Signed eSign Date and Time Celio Patton 01/30/21 1504 Fuentes Moore MD Normal [facility] EST. CREAT CLRon 01-30-2021 EST. CREAT CLR 116.369 ML/MIN Normal [facility] Comment on above: Order Comment: CONSE RVATION Result Comment: This result is an ESTIMATED blood creatinine clearance value which is derived from the patient age, sex, weight, and previous blood creatinine result. Performed By: #### L 500.90413, L500.96238 #### Test performed at: [place] [address] GFR ESTIMATEon 01-30-2021 IF AMER > 60 Normal > 60 [facility] Comment on above: Order Comment: [...] for clinical interpretation. Performed By: #### L 500.50374, L500.97593 #### Test performed at: [place] [address] IF non-AFR AMER > 60 Normal > 60 [facility] Comment on above: Order Comment: CONSE RVATION Performed By: #### L 500.15531, L500.87046 #### Test performed at: [place] [address] Internal Med Progress Noteon 01-30-2021 Internal Med Progress Note [facility] Patient: NICOLETTE GARZA [address] [place] [address] MR#: [id number] PROGRESS NOTE - Internal Medicine : 74 Service Date: 01/30/21 040 Subjective Primary Resident: Ameena Campos After Hours Call: [phone] ICU Resident Summary of Stay Ms. Garza [...] No murmurs, rubs or gallops. Abd: benign. 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 [...] RES Hause-Wardega, Katarzyna MD 01/30/21 1313 Normal [facility] Orthopedic Progress Noteon 1 Orthopedic Progress Note [facility] Patient: NICOLETTE GARZA [address] [place] [address] MR#: [id number] PROGRESS NOTE - Orthopedic : 74 Service Date: 01/30/21 1546 Subjective Summary of Stay POD#2 s/p ACDF [...] Noriega 01/30/21 1600 Fuentes Moore MD Normal [facility] Transfer Noteon 01-30-2021 Transfer Note [facility] Patient: NICOLETTE GARZA [address] [place] [address] MR#: [id number] TRANSFER NOTE : Service Date: 01/30/21 1009 [...] (%) 58.3 Lymph % (Auto) (%) 24.4 Baker % (Auto) (%) 16.8 Eos % (Auto) [...] Time Evelyne Olmos Residen 02/01/21 09 Normal [facility] Transfer Note [facility] Patient: NICOLETTE GARZA [address] [place] [address] MR#: [id number] TRANSFER NOTE : Service Date: 01/30/21923 Transfer/Acceptance [...] No murmurs, rubs or gallops. Abd: benign. 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 [...] Time Lexx Campos Krystin 01/31/21 1336 Normal [facility] Anesthesia Noteon 01-29-2021 Anesthesia Note [facility] Patient: NICOLETTE GARZA [facility] [place] [address] MR#: [id number] ANESTHESIA NOTE : Service Date: 01/29/21 0815 [...] Moreno 01/29/21 0816 Stephen Padron MD Normal [facility] BASIC MET PANELon 01-29-2021 Anion gap [Moles/Vol] 12 mmol/L Normal 6-18 [facility] Comment on above: Order Comment: CONSE RVATION Performed By: #### L 500.77894, L500.34844, L500.20850 ####Test performed at: [address] [address] Calcium [Mass/Vol] 9.2 mg/dL Normal 8.5-10.1 [facility] Comment on above: Order Comment: CONSE RVATION Performed By: #### L 500.23372, L500.84083, L500.69938 ####Test performed at: [address] [address] Chloride [Moles/Vol] 102 mmol/L Normal 98-107 [facility] Comment on above: Order Comment: CONSE RVATION Performed By: #### L 500.56356, L500.24377, L500.88576 ####Test performed at: [address] [address] CO2 [Moles/Vol] 25 mmol/L Normal 21-32 [facility] Comment on above: Order Comment: CONSE RVATION Performed By: #### L 500.79848, L500.04511, L500.21609 ####Test performed at: [address] [address] Creatinine [Mass/Vol] 0.823 mg/dL Normal 0.550-1.020 [facility] Comment on above: Order Comment: CONSE RVATION Performed By: #### L 500.61198, L500.07111, L500.59719 ####Test performed at: [address] [address] Glucose [Mass/Vol] 141 mg/dL High 70-99 [facility] Comment on above: Order Comment: CONSE RVATION Result Comment: Fast ing GLUCOSE reference range has been updated per (ADA) [place] [employer]'s recommendation. 06/29/2018 Performed By: #### L 500.55393, L500.29024, L500.95817 ####Test performed at: [address] [address] OSM 282 mosm/kg Normal 270-300 [facility] Comment on above: Order Comment: CONSE RVATION Performed By: #### L 500.23739, L500.91780, L500.71414 ####Test performed at: [address] [address] Potassium [Moles/Vol] 4.2 mmol/L Normal 3.5-5.1 [facility] Comment on above: Order Comment: CONSE RVATION Performed By: #### L 500.80788, L500.85490, L500.73463 ####Test performed at: [address] [address] Sodium [Moles/Vol] 135 mmol/L Low 136-145 [facility] Comment on above: Order Comment: CONSE RVATION Performed By: #### L 500.23791, L500.05340, L500.63631 ####Test performed at: [address] [address] Urea nitrogen [Mass/Vol] 13 mg/dL Normal 7-18 [facility] Comment on above: Order Comment: CONSE RVATION Performed By: #### L 500.76367, L500.91918, L500.23033 ####Test performed at: [address] [address] CBC W/DIFFon 01-29-2021 BASO ABS 0.0 K/uL Normal 0.0-0.2 [facility] Comment on above: Order Comment: CONSE RVATION Performed By: #### L 200.84091 ####Test performed at: [address] [address] Basophils/100 WBC (Bld) 0.1 % Normal [facility] Comment on above: Order Comment: CONSE RVATION Performed By: #### L 200.70701 ####Test performed at: [address] [address] EOS ABS 0.0 K/uL Normal 0.0-0.5 [facility] Comment on above: Order Comment: CONSE RVATION Performed By: #### L 200.55868 ####Test performed at: [address] [address] Eosinophils/100 WBC (Bld) 0.0 % Normal [facility] Comment on above: Order Comment: CONSE RVATION Performed By: #### L 200.62520 ####Test performed at: [address] [address] IG % 0.4 % Normal [facility] Comment on above: Order Comment: CONSE RVATION Performed By: #### L 200.15545 ####Test performed at: [address] [address] IG ABS 0.06 K/uL High 0-0.05 [facility] Comment on above: Order Comment: CONSE RVATION Performed By: #### L 200.92442 ####Test performed at: [address] [address] Lymphocytes (Bld) [#/Vol] 1.0 10*3/uL Low 1.2-3.5 [facility] Comment on above: Order Comment: CONSE RVATION Performed By: #### L 200.37743 ####Test performed at: [address] [address] Lymphocytes/100 WBC (Bld) 7.4 % Normal [facility] Comment on above: Order Comment: CONSE RVATION Performed By: #### L 200.91182 ####Test performed at: [address] [address] MONO ABS 0.9 K/uL Normal 0.0-1.0 [facility] Comment on above: Order Comment: CONSE RVATION Performed By: #### L 200.87619 ####Test performed at: [address] [address] Monocytes/100 WBC (Bld) 6.6 % Normal [facility] Comment on above: Order Comment: CONSE RVATION Performed By: #### L 200.17717 ####Test performed at: [address] [address] NEUTROPHIL ABS 12.0 K/uL High 1.4-6.6 [facility] Comment on above: Order Comment: CONSE RVATION Performed By: #### L 200.75061 ####Test performed at: [address] [address] Neutrophils/100 WBC (Bld) 85.5 % Normal [facility] Comment on above: Order Comment: CONSE RVATION Performed By: #### L 200.70879 ####Test performed at: [address] [address] WBC (Bld) [#/Vol] 14.0 10*3/uL High 3.9-11.0 [facility] Comment on above: Order Comment: CONSE RVATION Result Comment: Delt a: 6.2 on 01/15/21-1505 Performed By: #### L 200.03717 ####Test performed at: [address] [address] Erythrocyte distribution width (RBC) [Ratio] 14.5 % Normal 11.5-14.5 [facility] Comment on above: Order Comment: CONSE RVATION Performed By: #### L 200.96694 ####Test performed at: [address] [address] Hematocrit (Bld) [Volume fraction] 32.4 % Low 36.0-48.0 [facility] Comment on above: Order Comment: CONSE RVATION Performed By: #### L 200.93194 ####Test performed at: [address] [address] Hemoglobin (Bld) [Mass/Vol] 10.7 g/dL Low 12.0-15.0 [facility] Comment on above: Order Comment: CONSE RVATION Performed By: #### L 200.92340 ####Test performed at: [address] [address] MCH (RBC) [Entitic mass] 30.2 pg Normal 25.4-34.6 [facility] Comment on above: Order Comment: CONSE RVATION Performed By: #### L 200.08253 ####Test performed at: [address] [address] MCHC (RBC) [Mass/Vol] 33.0 g/dL Normal 31.5-36.5 [facility] Comment on above: Order Comment: CONSE RVATION Performed By: #### L 200.67700 ####Test performed at: [address] [address] MCV (RBC) [Entitic vol] 91.5 fL Normal 79.0-98.0 [facility] Comment on above: Order Comment: CONSE RVATION Performed By: #### L 200.08046 ####Test performed at: [address] [address] NRBC # 0.000 K/uL Normal 0-0.012 [facility] Comment on above: Order Comment: CONSE RVATION Performed By: #### L 200.22059 ####Test performed at: [address] [address] NRBC % 0.0 /100 WBC Normal 0-0.2 [facility] Comment on above: Order Comment: CONSE RVATION Performed By: #### L 200.09197 ####Test performed at: [address] [address] Platelet mean volume (Bld) [Entitic vol] 10.2 fL Normal 8.7-12.4 [facility] Comment on above: Order Comment: CONSE RVATION Performed By: #### L 200.42936 ####Test performed at: [address] [address] Platelets (Bld) [#/Vol] 315 10*3/uL Normal 140-440 [facility] Comment on above: Order Comment: CONSE RVATION Performed By: #### L 200.67694 ####Test performed at: [address] [address] RBC (Bld) [#/Vol] 3.54 10*6/uL Normal 3.5-5.5 [facility] Comment on above: Order Comment: CONSE RVATION Performed By: #### L 200.11592 ####Test performed at: [address] [address] EST. CREAT CLRon 01-29-2021 EST. CREAT CLR 95.018 ML/MIN Normal [facility] Comment on above: Order Comment: CONSE RVATION Result Comment: This result is an ESTIMATED blood creatinine clearance value which is derived from the patient age, sex, weight, and previous blood creatinine result. Performed By: #### L 500.11941, L500.77790, L500.39048 ####Test performed at: [place] [id number] GFR ESTIMATEon 01-29-2021 IF AMER > 60 Normal > 60 [facility] Comment on above: Order Comment: [...] for clinical interpretation. Performed By: #### L 500.27191, L500.75238, L500.73255 ####Test performed at: [place] [address] IF non-AFR AMER > 60 Normal > 60 [facility] Comment on above: Order Comment: CONSE RVATION Performed By: #### L 500.27886, L500.17156, L500.00198 ####Test performed at: [place] [address] Internal Med Progress Noteon 01-29-2021 Internal Med Progress Note [facility] Patient: NICOLETTE GARZA [address] [place] [address] MR#: [id number] PROGRESS NOTE - Internal Medicine : 74 [...] No murmurs, rubs or gallops. Abd: benign. 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 [...] Agree with above documentation. The [resident's, PA's, MANUFACTURING MANAGEMENT ASSOCIATE's] assessment and plan reflect my input. Discussed with documenting provider and patient. Plan is as outlined above. Electronically Signed eSign Date (more content not included)... Normal [facility] OT Therapy Recommendationson 01-29-2021 OT Therapy Recommendations [facility] Patient: NICOLETTE GARZA [address] [place] [id number] MR#: [id number] OT THERAPY RECOMMENDATIONS : 74 Service Date: 01/29/21 132 Therapy Recommendations Therapy Recommendations Recommendations Occupational therapy eval complete. No skilled OT indicated. Recommend home with family assist. D/C OT services. Electronically Signed eSign Date and Time Fee,Acacia OT 01/29/21 1327 Normal [facility] Orthopedic Progress Noteon 1 Orthopedic Progress Note [facility] Patient: NICOLETTE GARZA [address] [address] MR#: [id number] PROGRESS NOTE - Orthopedic : 74 Service [...] Noriega 01/29/21 1550 Fuentes Moore MD Normal [facility] PT Therapy Recommendationson 01-29-2021 PT Therapy Recommendations [facility] Patient: NICOLETTE GARZA [address] [place] [address] MR#: [id number] PT THERAPY RECOMMENDATIONS : 74 Service Date: 01/29/21 135 Therapy Recommendations Therapy Recommendations Recommendations PT EVAL COMPLETED. DC RECOMM: HOME NO PT SERVICES. Electronically Signed eSign Date and Time Tricia Mc PT 01/29/21 1350 Normal [facility] z OT Inpatient Discharge Not liana 01-29-2021 z OT Inpatient Discharge Note [facility] Patient: NICOLETTE GARZA [address] [place] [address] MR#: [id number] OT INPATIENT DISCHARGE NOTE : 74 Service [...] Time Acacia Gordillo OT 01/29/21 1422 Normal [facility] z OT Inpatient Evaluationon 01-29-2021 z OT Inpatient Evaluation [facility] Patient: NICOLETTE GARZA [address] [place] [address] MR#: [id number] OT INPATIENT EVALUATION : 74 Inpatient OT HPI Date of Service 01/29/21 Time In: 1055 Time Out: 1121 Total Treatment Time (Mins) 26 Visit Reason ROE CERVICAL C3-4,C4-5,C5-6,C6-7,SPO NDYLOSIS W/MY Surgery Type/Date ACDF C3-7 01/28/21 Referral Date 01/28/21 Tx Diagnosis: CERVICALGIA Insurance Name [facility] Hospital Course POD#1. RN cleared pt. to [...] return understanding verbalized. AE/DME recommendation: Shower seat Computer Methods Analyst Transfers Transfers Supine to Sit Modified Independent [...] and Time Fee,Acacia OT 01/29/21 1420 Normal [facility] z PT Inpatient Discharge Not liana 01-29-2021 z PT Inpatient Discharge Note [facility] Patient: NICOLETTE GARZA [address] [place] [address] MR#: [id number] PT INPATIENT DISCHARGE NOTE : 74 Service [...] Time Tricia Mc PT 01/29/21 1349 Normal [facility] z PT Inpatient Evaluationon 01-29-2021 z PT Inpatient Evaluation [facility] Patient: NICOLETTE GARZA [address] [place] [address] MR#: [id number] PT INPATIENT EVALUATION : 74 Service Date: 01/29/21 1433 Inpatient PT HPI Date of Service 01/29/21 Time In: 1215 Time Out: 1245 Total Treatment Time (Mins) 10 Room Number 349 Visit Reason ROE CERVICAL C3-4,C4-5,C5-6,C6-7,SPO NDYLOSIS W/MY Surgery Type: acdf c3-4,4-5.5-6,6-7 with cages and plate Surgery Date: 01/28/21 Referral Date 01/28/21 Tx Diagnosis: CERVICALGIA Insurance Name [facility] Hospital Course 50 Y/O PATIENT ADMITTED TO [...] Strength: WITHIN FUNCTIONAL LIMITS Outcome Measures Modified [place] Score 0-No Symptoms AM-PAC Inpatient Mobility AM-PAC [...] Recommendations Home-No Home Health Care Topic #1 INSPECTOR HANDBAG FRAMES Teaching Method: BOOKLET Teaching Method: TEACHBACK Outcome: [...] Time Tricia Mc PT 01/30/21 0934 Normal [facility] Brief Noteon 01-28-2021 Brief Note [facility] Patient: NICOLETTE GARZA [address] [place] [id number] MR#: [id number] BRIEF NOTE : 74 Service Date: 01/28/21 [...] and Time Bonita Dennis,Chiki RES 01/29/212009 Normal [facility] Internal Medicine Consultati onon 01-28-2021 Internal Medicine Consultation [facility] Patient: NICOLETTE GARZA [place] [id number] MR#: [id number] CONSULTATION - Internal Medicine : 74 Service [...] MD 01/29/21 1303 Clarissa Hahn Res Normal [facility] OPERATIVE REPORTon OPERATIVE REPORT NAME: NICOLETTE GARZA MR#: [id number] SURGEON: Fuentes Moore MD DATE OF SURGERY: [...] structures. Intraoperative neuromonitoring was performed by an on-historic sites registrar and an offsite physician who was continuously monitoring the case. This was Dr. Oneal. Dr. Oneal was available throughout the case by written e-mail or phone communication. Intraoperative monitoring modalities utilized for SSEP uppers, SSEP lowers, MEP, SEMG, EEG, and [id number]. Pre and post positioning neuromonitoring were performed [...] that all posterior compressive pathology had been [facility] PT NAME: NICOLETTE GARZA MR#: [id number] [address] [place] [address] ACCT: [id number] : 74 OPERATIVE REPORT removed. The endplates [...] trachea, esophagus, (more content not included)... Normal [facility] POC UR HCGon 01-28-2021 POC UR HCG Negative Normal [facility] Comment on above: Order Comment: CBN: NO [place]: MAIN ON BOARD QC CHECK FOR HCG OK? Y Test performed by: ENOC POC HCG RESULT: NEGATIVE Performed By: #### L 600.81733 #### Test performed at: [place] [address] Primary Residenton Primary Resident [facility] Pt Name: NICOLETTE GARZA MR#: [id number] [address] [place] [address] ACCT: [id number] [place] [address] : 74 Service Date: 01/28/21 1538 Primary Resident/Call Primary Resident: Joi Aguilera After Hours Call: ICU team Electronically Signed eSign Date and Time Bonita Dennis 01/28/21 1539 Normal [facility] Primary Resident [facility] Pt Name: KAYLANICOLETTE SAGASTUME MR#: [id number] [facility] [address] ACCT: [id number] [place] [address] : 74 Service Date: 01/28/21 1429 Primary Resident/Call Primary Resident: Sigrid sutherland After Hours Call: [phone] Red Team Electronically Signed eSign Date and Time Minnie Peace 01/28/21 1429 Normal [facility] CERVICAL SP AP&LAT OR 2-3 VW Son 01-25-2021 CERVICAL SP AP&LAT OR 2-3 VWS STUDY: CERVICAL SP AP LAT OR 2-3 VWS; 01/28/2021 1:30 pm INDICATION: ACDF C3-C4,C4-C5,C5-C6,C6-C7 . COMPARISON: None. ACCESSION NUMBER(S): [id number] ORDERING CLINICIAN: Fuentes Moore FINDINGS: Intraoperative fluoroscopy of the cervical spine obtained for localization. IMPRESSION: As above Normal [facility] CORONAVIRUSon 01-25-2021 SARS-CoV-2 (COVID-19) RNA JENN+probe [...] on the FDA website: https://www.fda.gov/Med icalDevices/Safety/ EmergencySituations/ucm 685671.htm COVID-19 Negative for COVID-19 (SARS-CoV-2 RNA) Normal [facility] Comment on above: Order Comment: CBN: YES [place]: MAIN COVID Testing: PRE-OP/PROCEDURE SCREEN Comment: 01/28 AGE at Spec ALEX 50 Report age at specimen ALEX? Y First test: UNKNOWN Employed in Healthcare: NO Symptomatic as defined by CDC: NO Hospitalized for COVID-19? NO ICU: NO Resident in a Congregated Care Setting: NO Order Date: 01/25/21 : Not Performed By: #### M 400.39300 #### Test performed at: [address] [address] BASIC MET PANELon 01-15-2021 Anion gap [Moles/Vol] 10 mmol/L Normal 6-18 [facility] Comment on above: Performed By: #### L 500.11937, L500.91508 #### Test performed at: [address] [address] Calcium [Mass/Vol] 9.1 mg/dL Normal 8.5-10.1 [facility] Comment on above: Performed By: #### L 500.75265, L500.54921 #### Test performed at: [address] [address] Chloride [Moles/Vol] 108 mmol/L High 98-107 [facility] Comment on above: Performed By: #### L 500.95966, L500.29071 #### Test performed at: [address] [address] CO2 [Moles/Vol] 28 mmol/L Normal 21-32 [facility] Comment on above: Performed By: #### L 500.09507, L500.85661 #### Test performed at: [address] [address] Creatinine [Mass/Vol] 0.941 mg/dL Normal 0.550-1.020 [facility] Comment on above: Performed By: #### L 500.22757, L500.85922 #### Test performed at: [address] [address] Glucose [Mass/Vol] 105 mg/dL High 70-99 [facility] Comment on above: Result Comment: Fast ing GLUCOSE reference range has been updated per (ADA) [place] [employer]'s recommendation. 06/29/2018 Performed By: #### L 500.00082, L500.69368 #### Test performed at: [address] [address] OSM 296 mosm/kg Normal 270-300 [facility] Comment on above: Performed By: #### L 500.31403, L500.79912 #### Test performed at: [address] [address] Potassium [Moles/Vol] 4.2 mmol/L Normal 3.5-5.1 [facility] Comment on above: Performed By: #### L 500.21915, L500.04610 #### Test performed at: [address] [address] Sodium [Moles/Vol] 142 mmol/L Normal 136-145 [facility] Comment on above: Performed By: #### L 500.72375, L500.41477 #### Test performed at: [address] [address] Urea nitrogen [Mass/Vol] 18 mg/dL Normal 7-18 [facility] Comment on above: Performed By: #### L 500.14896, L500.45503 #### Test performed at: [address] [address] CBC W/DIFFon 01-15-2021 BASO ABS 0.1 K/uL Normal 0.0-0.2 [facility] Comment on above: Performed By: #### L 200.12481 #### Test performed at: [address] [address] Basophils/100 WBC (Bld) 1.5 % Normal [facility] Comment on above: Performed By: #### L 200.07619 #### Test performed at: [address] [address] EOS ABS 0.4 K/uL Normal 0.0-0.5 [facility] Comment on above: Performed By: #### L 200.15095 #### Test performed at: [address] [address] Eosinophils/100 WBC (Bld) 5.7 % Normal [facility] Comment on above: Performed By: #### L 200.54061 #### Test performed at: [place] [address] Erythrocyte distribution width (RBC) [Ratio] 14.6 % High 11.5-14.5 [facility] Comment on above: Performed By: #### L 200.48245 #### Test performed at: [place] [address] Hematocrit (Bld) [Volume fraction] 36.2 % Normal 36.0-48.0 [facility] Comment on above: Performed By: #### L 200.93505 #### Test performed at: [address] [address] Hemoglobin (Bld) [Mass/Vol] 11.8 g/dL Low 12.0-15.0 [facility] Comment on above: Performed By: #### L 200.11121 #### Test performed at: [address] [address] IG % 0.3 % Normal [facility] Comment on above: Performed By: #### L 200.00643 #### Test performed at: [address] [address] IG ABS 0.02 K/uL Normal 0-0.05 [facility] Comment on above: Performed By: #### L 200.06315 #### Test performed at: [address] [address] Lymphocytes (Bld) [#/Vol] 2.8 10*3/uL Normal 1.2-3.5 [facility] Comment on above: Performed By: #### L 200.13376 #### Test performed at: [address] [address] Lymphocytes/100 WBC (Bld) 45.0 % Normal [facility] Comment on above: Performed By: #### L 200.62507 #### Test performed at: [address] [address] MCH (RBC) [Entitic mass] 30.8 pg Normal 25.4-34.6 [facility] Comment on above: Performed By: #### L 200.25436 #### Test performed at: [address] [address] MCHC (RBC) [Mass/Vol] 32.6 g/dL Normal 31.5-36.5 [facility] Comment on above: Performed By: #### L 200.29501 #### Test performed at: [address] [address] MCV (RBC) [Entitic vol] 94.5 fL Normal 79.0-98.0 [facility] Comment on above: Performed By: #### L 200.14607 #### Test performed at: [address] [address] MONO ABS 0.9 K/uL Normal 0.0-1.0 [facility] Comment on above: Performed By: #### L 200.60103 #### Test performed at: [address] [address] Monocytes/100 WBC (Bld) 14.6 % Normal [facility] Comment on above: Performed By: #### L 200.62834 #### Test performed at: [address] [address] NEUTROPHIL ABS 2.0 K/uL Normal 1.4-6.6 [facility] Comment on above: Performed By: #### L 200.99511 #### Test performed at: [address] [address] Neutrophils/100 WBC (Bld) 32.9 % Normal [facility] Comment on above: Performed By: #### L 200.70678 #### Test performed at: [address] [address] NRBC # 0.000 K/uL Normal 0-0.012 [facility] Comment on above: Performed By: #### L 200.35855 #### Test performed at: [place] [address] NRBC % 0.0 /100 WBC Normal 0-0.2 [facility] Comment on above: Performed By: #### L 200.05700 #### Test performed at: [address] [address] Platelet mean volume (Bld) [Entitic vol] 10.5 fL Normal 8.7-12.4 [facility] Comment on above: Performed By: #### L 200.01814 #### Test performed at: [address] [address] Platelets (Bld) [#/Vol] 337 10*3/uL Normal 140-440 [facility] Comment on above: Performed By: #### L 200.71250 #### Test performed at: [address] [address] RBC (Bld) [#/Vol] 3.83 10*6/uL Normal 3.5-5.5 [facility] Comment on above: Performed By: #### L 200.30000 #### Test performed at: [place] [address] [place] [address] WBC (Bld) [#/Vol] 6.2 10*3/uL Normal 3.9-11.0 [facility] Comment on above: Performed By: #### L 200.66503 #### Test performed at: [place] [address] [place] [address] CONSULTATION REPORTon 2020 CONSULTATION REPORT NAME: NICOLETTE GARZA MR#: [id number] PUNCH MOLDER: Meliton Gibson MD DATE OF CONSULTATION: 01/15/2021 [...] plate. 2. Otherwise, pretty much normal physical. [facility] PT NAME: NICOLETTE GARZA MR#: [id number] [address] [place], [place] [id number] ACCT: [id number] : 74 CONSULTATION PLAN: The patient's physical [...] courtesy of this consultation. MELITON GIBSON MD MS/MODL/[id number] E/S: Meliton Gibson MD 01/15/21 1803 Electronically Signed [facility] PT NAME: NICOLETTE GARZA MR#: [id number] [address] [place], [place] [id number] ACCT: [id number] : 74 CONSULTATION Normal [facility] GFR ESTIMATEon 01-15-2021 IF AMER > 60 Normal > 60 [facility] Comment on above: Result Comment: eGFR (Estimated GFR) Units of measure:mL/min/1.73 meters sq. *CALCULATION REVISED 01/23/2015;IDMS-traceable MDRD equation eGFR is derived from the reexpressed MDRD Study equation using the following parameters: serum creatinine, age, gender and race. An eGFR<60 mL/min/1.73m2 for >3 months is consistent with chronic kidney disease. Refer to KDOQI guidelines for clinical interpretation. Performed By: #### L 500.14976, L500.85055 #### Test performed at: [place] [address] IF non-AFR AMER > 60 Normal > 60 [facility] Comment on above: Performed By: #### L 500.23220, L500.38024 #### Test performed at: [place] [address] CERV SP W OBL/FLEX/EXT 6 OR >on 01-02-2021 CERV SP W OBL/FLEX/EXT 6 OR > STUDY: CERV SP W OBL/FLEX/EXT 6 OR > ; 01/02/2021 9:36 am INDICATION: PAIN. COMPARISON: None. ACCESSION NUMBER(S): [id number] ORDERING CLINICIAN: Fuentes Moore FINDINGS: No fracture or subluxation. Severe disc height loss with endplate osteophytes C4-5 and C5-6. Mild disc height loss C6-7. Straightening of the cervical spine. No spondylolisthesis. Lower cervical predominant facet arthropathy. No instability on flexion or extension. Evaluation of the neural foramina is severely limited due to suboptimal positioning. 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 Normal [facility] Vital Signs Date Time Vital Sign Value Performing Clinician Aaron abdi 02-09-2024 13:17-0500 Blood Pressure Location Jessica WILIL [facility] 02-09-2024 13:17-0500 Diastolic blood pressure 88 mm[Hg] Jessica RASHEEDL [facility] 02-09-2024 13:17-0500 Heart rate 72 /min Jessica RASHEEDL [facility] 02-09-2024 13:17-0500 Respiratory rate 16 /min Jessica RASHEEDL [facility] 02-09-2024 13:17-0500 Systolic blood pressure 124 mm[Hg] Jessica RASHEEDL [facility] Encounters Encounter Date Encounter Type Care Provider Facility Start: 02-09-2024 End: 02-09-2024 ambulatory Jessica FRY Facility:[facility] Start: 02-09-2024 End: 02-09-2024 Patient encounter procedure Jessica FRY [facility] Start: 12-28-2023 ambulatory Jessica FRY Facility:[facility] Start: 12-20-2021 Encounter for genera l adult medical examination without abnormal findings DR BASSAM WORTHINGTON [facility] Start: 12-13-2021 End: 12-14-[address] BASSAM WORTHINGTON Facility:[facility] Start: 12-13-2021 End: 12-14-2021 Encounter for general adult medical examination without abnormal findings DR BASSAM WORTHINGTON Facility: Start: 09-21-2021 End: 09-21-2021 ambulatory CK RODAS Facility: Procedures Date Procedure Procedure Detail Performing Clinician History of surgical procedure on cervical spine Jessica FRY Immunizations Immunization Date Immunization Notes Care Provider Fa [facility] 09-24-2020 SARS-CoV-2 (COVID-19 ) mRNA BNT-162b2 vax Jessica RASHEEDMayra [facility] 08-22-2020 SARS-CoV-2 (COVID-19 ) mRNA BNT-162b2 vax Jessica WILIMayra [facility] Payers Date Payer Category Payer Unknown [id number] 1970 Unknown [id number] 2.16.84 [id number] 1970 Unknown [id number] 2.16.84 [id number] 1972 Unknown [id number] 1957 Unknown [id number] Social History Date Type Detail Facility Start: 02-09-2024 Tobacco smoking status Ex-smoker (fi nding) [facility] Tobacco smoking status Never [facility] Sex Assigned At Female [facility] Functional Status Date Assessment Result Facility 02-09-2024 Functional Status N/A [facility] Clinical Note 02-09-2024 Note Date & Type [...] SARS-CoV-2 (COVID-19) mRNA BNT-162b2 vax 08/22/2020 Recorded [facility] Comment on above: Result Comment: Elec tronically Signed By: ANG LEVIN, Jessica Limon\Date and Time Signed: 02/09/24 13:49 EST Discharge summary note 01-28-2021 Note Date & Type Note Facility 01-28-2021 Note NAME: NICOLETTE GARZA MR#: [id number] ADMIT DATE: 01/28/2021 DISCHARGE DATE: 01/30/2021 DISCHARGE [...] or swallowing and voice is strong. Hand estate planning counselor is strong and equal. Incision is well [...] possible and continue taking all of her [facility] PT NAME: NICOLETTE GARZA MR#: [id number] [address] [place] [address] ACCT: [id number] : 74 DISCHARGE SUMMARY medications as directed and keep all of her outpatient followup appointment as scheduled. She is being discharged back to her home with self care. MD LEONCIO RODRÍGUEZ/MODL/[id number] E/S: Fuentes Moore MD 04/08/21 1225 Electronically Signed [facility] PT NAME: NICOLETTE GARZA MR#: [id number] [address] [place] [address] ACCT: [id number] : [birth year] DISCHARGE SUMMARY [facility] Evaluation + Plan note Note Date & Type Note Facility Evaluation + Plan note No data available for this section [facility] Hospital Discharge instructions Note Date & Type Note Facility Hospital Discharge instructions No data available for this section [facility] Progress note Note Date & Type Note Facility Progress note No data available for this section [facility] Summary Purpose Family History No Family History Records FoundNo Family History Records FoundNo Family History Records Found No data available for this section Advance Directives No Advanced Directives Records FoundNo Advanced Directives Records FoundNo Advanced Directives Records Found Additional Source Comments INFORMATION SOURCE (unrecogn ized section and content) DATE CREATED AUTHOR 05/20/2021 [facility] DATE CREATED AUTHOR AUTHOR'S ORGANIZ ATION 01/04/2022 [facility] DATE CREATED AUTHOR AUTHOR'S ORGANIZ ATION 02/10/2024 [facility] Patient Care team informatio n (unrecognized section and content) Personnel Name: Bassam Worthington MD Address: Address: [address] [place] [address] FOR RECORDS PERTAINING TO PATIENTS WHO ARE [...] BE BASED ON THE PRIMARY CLINICAL RECORDS. [facility] [employer] [facility]. provides no warranty or guarantee of the accuracy or completeness of information in this document.
[2024-03-09] MEDS: 0.9 % SODIUM CHLORIDE 500 ML 50 ML IV ×2 (09:15→11:01)
[2024-03-09 09:21] LABS: Internal Control Within Normal Limits
[2024-03-09 09:23] LABS: HCG Qualitative POSITIVE (NEGATIVE)
[2024-03-09 09:53] LABS: HCG Quantitative 10 mIU/mL
--- NOTE | 2024-03-09 10:07 | PC.NURSE ---
1005- Dr. Franco, Dr. Herron and Dr. Bailey aware of HCG result. Okay to proceed. Patient states that she hasn't had a period in over 5 years.
[2024-03-09 11:15] VITALS: BP 112/64; PULSE 61; O2SAT 98
[2024-03-09 11:30] VITALS: BP 131/81; PULSE 62; O2SAT 99
[2024-03-09 11:44] VITALS: BP 128/70; PULSE 68; O2SAT 100
== END 2024-03-09 11:45 | disposition home or self-care (01) ==
PROVIDERS: Anesthesiology; PCP Family Medicine; Visit Provider Surgery
PROC: (CPT 00811; principal; 2024-03-09 09:55)
DX: D64.9 Anemia, unspecified (principal); E78.5 Hyperlipidemia, unspecified; J45.909 Unspecified asthma, uncomplicated; Z87.891 Personal history of nicotine dependence; Z98.51 Tubal ligation status; K21.9 Gastro-esophageal reflux disease without esophagitis
CPT/HCPCS: 00811; 45378; 36415; 84702; 84703; J2704

== ENCOUNTER 2024-04-29 17:31 | Emergency (ER) | payer BC, SELFPAY ==
[2024-04-29 17:36] VITALS: BP 126/86; PULSE 74; TEMP 37.1; O2SAT 96; BMI 27.4
--- OUTSIDE RECORDS SUMMARY | 2024-04-29 17:37 | XMS_ITS | CCD ---
Author Organization [facility] Care Team Providers Care On Site Coordinator Name Role Phone CK RODAS Attending Unavailable CK RODAS Consulting Unavailable DR BASSAM WORTHINGTON Primary Care Unavailable CK RODAS Admitting Unavailable KIKO DIEHL Consulting Unavailable ANDER, DR BANEGAS Attending Unavailable ANDER, DR BANEGAS Consulting Unavailable DR BASSAM WORTHINGTON Primary Care Unavailable DR BASSAM WORTHINGTON Admitting Unavailable Bassam Worthington Primary Care Physician Bassam Worthington Referring Unavailable Jessica FRY Attending Unavailable Jessica FRY Attending Unavailable Allergies Allergy Classification Reported Allergen(s) Allergy Type Date of Onset Reaction(s) Facility (2 sources) Adhesive bandage; Translations: [Adhesive Bandage] Propensity to adverse reactions to substance Eruption of skin (disorder) [facility] (1 source) No Known Medication Allergies; Translations: [No Known Medication Allergies] Propensity to adverse reactions (disorder) [facility] Repository NEGATED: Highlighted row has been ruled out! (1 source) Drug allergy [facility] Medications Current Medications Medication Drug Class(es) [...] Test Name Value Interpretation Reference Range Facility Reminderson 03-10-2024 Reminders Reminders From: Kalli Silva LPN To: N - Clinical; Sent: 03/10/2024 12:48:03 EST Show up: 02/07/2034 07:00:00 EDT Subject: colonoscopy recall Due Date/Time: 03/09/2034 07:00:00 EST Reminder/Recall Patient due for screening colonoscopy 03/09/2034. Normal [facility] Ambulatory Visit Summaryon 1 04-10-2023 Ambulatory Visit Summary Ambulatory Visit Summary NICOLETTE GARZA :1970 Visit Date:02/09/2024 Ambulatory Visit Instructions Your Diagnosis Anemia Screening for malignant neoplasm of colon Your Care Team Attending Physician - ANG LEVIN, Jessica Gordon Primary Care Physician - Ander LEVIN, Bassam Referring Physician - Bassam Worthington MD This [...] for choosing us for your care. Normal [facility] T4, T3U, FTI LABCORPon 12-14 Free Thyroxine Index 2.4 Normal 1.2-4.9 [facility] Comment on above: Performed By: #### T HYLC #### [facility] [address] [place] [address] Dr. Prateek Andre T3 Uptake 26 % Normal 24-39 [facility] Comment on above: Performed By: #### T HYLC #### [facility] [address] [address] [address] Prateek Andre T4 [Mass/Vol] 9.1 ug/dL Normal 4.5-12.0 [facility] Comment on above: Performed By: #### T HYLC #### [facility] [address] [address] [address] Prateek Andre CBC AUTO DIFFon 12-13-2021 BASO # 0.1 103/ul Normal 0.0-0.1 [facility] Comment on above: Performed By: #### C BC #### [facility] [address] [address] [address] Prateek Andre Basophils/100 WBC (Bld) 1.2 % Normal 0.2-2.0 [facility] Comment on above: Performed By: #### C BC #### [facility] [address] [address] [address] Prateek Andre EO # 0.2 103/ul Normal 0.0-0.7 [facility] Comment on above: Performed By: #### C BC #### [facility] [address] [place] [address] Dr. Prateek Andre Eosinophils/100 WBC (Bld) 3.5 % Normal 0.9-7.0 [facility] Comment on above: Performed By: #### C BC #### [facility] [address] [place] [address] Dr. Prateek Andre Erythrocyte distribution width (RBC) [Ratio] 15.5 % Critically high 11.0-15.0 [facility] Comment on above: Performed By: #### C BC #### [facility] [address] [place] [address] Dr. Prateek Andre Hematocrit (Bld) [Volume fraction] 38.5 % Normal 36.0-48.0 [facility] Comment on above: Performed By: #### C BC #### [facility] [address] [place] [address] Dr. Prateek Andre Hemoglobin (Bld) [Mass/Vol] 12.6 g/dL Normal 12.0-16.0 [facility] Comment on above: Performed By: #### C BC #### [facility] [address] [place] [address] Dr. Prateek Andre IG # 0.04 10e3/ul Critically high 0.00-0.03 [facility] Comment on above: Performed By: #### C BC #### [facility] [address] [place] [address] Dr. Prateek Andre IG % 0.6 % Critically high 0.0-0.5 [facility] Comment on above: Performed By: #### C BC #### [facility] [address] [place] [address] Dr. Prateek Andre LYMPH # 2.2 103/ul Normal 1.2-3.8 [facility] Comment on above: Performed By: #### C BC #### [facility] [address] [place] [address] Dr. Prateek Andre Lymphocytes/100 WBC (Bld) 33.5 % Normal 20.5-60.0 [facility] Comment on above: Performed By: #### C BC #### [facility] [address] [place] [address] Dr. Prateek Andre MANUAL DIFF REQ NO Normal [facility] Comment on above: Performed By: #### C BC #### [facility] [address] [place] [address] Dr. Prateek Andre MCH (RBC) [Entitic mass] 30.7 pg Normal 26.7-34.0 [facility] Comment on above: Performed By: #### C BC #### [facility] [address] [place] [address] Dr. Prateek Andre MCHC (RBC) [Mass/Vol] 32.7 g/dL Normal 29.9-35.2 [facility] Comment on above: Performed By: #### C BC #### [facility] [address] [place] [address] Dr. Prateek Andre MCV (RBC) [Entitic vol] 93.7 fL Normal 81.0-99.0 [facility] Comment on above: Performed By: #### C BC #### [facility] [address] [place] [address] Dr. Prateek Andre MONO # 0.9 103/ul Critically high 0.3-0.8 [facility] Comment on above: Performed By: #### C BC #### [facility] [address] [place] [address] Dr. Prateek Andre Monocytes/100 WBC (Bld) 13.6 % Critically high 1.7-12.0 [facility] Comment on above: Performed By: #### C BC #### [facility] [address] [address] [address] Prateek Andre NEUT # 3.2 103/ul Normal 1.4-6.5 [facility] Comment on above: Performed By: #### C BC #### [facility] [address] [address] [address] Prateek Andre Neutrophils/100 WBC (Bld) 47.6 % Normal 43.0-75.0 [facility] Comment on above: Performed By: #### C BC #### [facility] [address] [place] [address] Dr. Prateek Andre Platelet mean volume (Bld) [Entitic vol] 9.1 fL Critically low 9.5-13.5 [facility] Comment on above: Performed By: #### C BC #### [facility] [address] [address] [address] Prtaeek Andre PLT 423 103/ul Normal 150-450 [facility] Comment on above: Performed By: #### C BC #### [facility] [address] [place] [address] Dr. Prateek Andre RBC 4.11 106/ul Critically low 4.20-5.40 [facility] Comment on above: Performed By: #### C BC #### [facility] [address] [place] [address] Dr. Prateek Andre WBC 6.6 103/ul Normal 4.0-11.0 [facility] Comment on above: Performed By: #### C BC #### [facility] [address] [address] [address] Prateek Andre GLYCOHEMOGLOBIN A1Con 2021 ADA RECOMMENDATION SEE BELOW Normal [facility] Comment on above: Result Comment: ADA RECOMMENDED LIMIT 4.0 - 6.0 ADA THERAPEUTIC TARGET < 7.0 ACTION SUGGESTED > 7.0 Performed By: #### A 1C ####[facility] [address] [place], [place] [id number]. Prateek Andre Glucose [Mass/Vol] 108 mg/dL Normal [facility] Comment on above: Performed By: #### A 1C ####[facility] [address] [place], [place] [address]SxDr. Prateek Andre HbA1c (Bld) [Mass fraction] 5.4 % Normal 4.5-6.2 [facility] Comment on above: Performed By: #### A 1C ####[facility] [address] [id number]. Prateek Andre LIPID PROFILEon 12-13-2021 CHOL-HDL RATIO NORM SEE BELOW Normal [facility] Comment on above: Result Comment: 3.3 - 4.4 LOW RISK 4.4 - 7.1 AVERAGE RISK 7.1 - 11.0 MODERATE RISK >11.0 HIGH RISK Performed By: #### C MP, LIPID, TSH #### [facility] [address] [address] [address] Prateek Andre Cholesterol [Mass/Vol] 251 mg/dL Critically high <=200 [facility] Comment on above: Performed By: #### C MP, LIPID, TSH #### [facility] [address] [address] [address] Prateek Andre Cholesterol in HDL [Mass/Vol] 78 mg/dL Critically high 40-60 [facility] Comment on above: Performed By: #### C MP, LIPID, TSH #### [facility] [address] [address] [address] Prateek Andre Cholesterol in LDL [Mass/Vol] 165.2 mg/dL Normal [facility] Comment on above: Performed By: #### C MP, LIPID, TSH #### [facility] [address] [address] [address] Prateek Andre Cholesterol.total/Cho lesterol in HDL [Mass ratio] 3.2 {ratio} Normal [facility] Comment on above: Performed By: #### C MP, LIPID, TSH #### [facility] [address] [address] [address] Prateek Andre HDL NORMAL > or = 60 mg/dl - LO W CARDIOVASCULAR RISK <40 mg/dl - HIGH CARDIOVASCULAR RISK Normal [facility] Comment on above: Performed By: #### C MP, LIPID, TSH #### [facility] [address] [address] [address] Prateek Andre LDL CALC NORMAL SEE BELOW Normal [facility] Comment on above: Result Comment: <100 mg/dl OPTIMAL 100 - 129 mg/dl NEAR OR ABOVE OPTIMAL 130 - 159 mg/dl BORDERLINE HIGH 160 - 189 mg/dl HIGH >190 mg/dl VERY HIGH Performed By: #### C MP, LIPID, TSH #### [facility] [address] [address] [address] Prateek Andre Triglyceride [Mass/Vol] 39 mg/dL Normal <=150 [facility] Comment on above: Performed By: #### C MP, LIPID, TSH #### [facility] [address] [address] [address] Prateek Andre VLDL CALC 7.8 mg/dL Normal [facility] Comment on above: Performed By: #### C MP, LIPID, TSH #### [facility] [address] [address] [address] Prateek Andre PROF 14(COMP METB)on 022 Albumin [Mass/Vol] 4.0 g/dL Normal 3.4-5.0 [facility] Comment on above: Performed By: #### C MP, LIPID, TSH #### [facility] [address] [address] [address] Prateek Andre Albumin/Globulin [Mass ratio] 1.1 {ratio} Normal [facility] Comment on above: Performed By: #### C MP, LIPID, TSH #### [facility] [address] [address] [address] Prateek Andre ALP [Catalytic activity/Vol] 75 U/L Normal 46-116 [facility] Comment on above: Performed By: #### C MP, LIPID, TSH #### [facility] [address] [address] [address] Prateek Andre ALT [Catalytic activity/Vol] 15 U/L Normal 14-59 [facility] Comment on above: Performed By: #### C MP, LIPID, TSH #### [facility] [address] [address] [address] Prateek Andre Anion gap [Moles/Vol] 11.3 mmol/L Normal [facility] Comment on above: Performed By: #### C MP, LIPID, TSH #### [facility] [address] [address] [address] Prateek Andre AST [Catalytic activity/Vol] 15 U/L Normal 15-37 [facility] Comment on above: Performed By: #### C MP, LIPID, TSH #### [facility] [address] [address] [address] Prateek Andre Bilirubin [Mass/Vol] 0.5 mg/dL Normal 0.2-1.0 [facility] Comment on above: Performed By: #### C MP, LIPID, TSH #### [facility] [address] [address] [address] Prateek Andre Calcium [Mass/Vol] 9.3 mg/dL Normal 8.5-10.1 [facility] Comment on above: Performed By: #### C MP, LIPID, TSH #### [facility] [address] [place] [address] Dr. Prateek Andre Chloride [Moles/Vol] 106 mmol/L Normal 98-107 [facility] Comment on above: Performed By: #### C MP, LIPID, TSH #### [facility] [address] [address] [address] Prateek Andre CO2 [Moles/Vol] 29.2 mmol/L Normal 21.0-32.0 [facility] Comment on above: Performed By: #### C MP, LIPID, TSH #### [facility] [address] [address] [address] Prateek Andre Creatinine [Mass/Vol] 0.77 mg/dL Normal 0.55-1.02 [facility] Comment on above: Performed By: #### C MP, LIPID, TSH #### [facility] [address] [address] [address] Prateek Andre EGFR-AF FRENCH >60 Normal >=60 [facility] Comment on above: Performed By: #### C MP, LIPID, TSH #### [facility] [address] [place] [address] Dr. Prateek Andre EGFR-NON AF FRENCH >60 Normal >=60 [facility] Comment on above: Performed By: #### C MP, LIPID, TSH #### [facility] [address] [place] [address] Dr. Prateek Andre Globulin (S) [Mass/Vol] 3.6 g/dL Normal [facility] Comment on above: Performed By: #### C MP, LIPID, TSH #### [facility] [address] [place] [address] Dr. Prateek Andre Glucose [Mass/Vol] 90 mg/dL Normal 74-106 [facility] Comment on above: Performed By: #### C MP, LIPID, TSH #### [facility] [address] [place] [address] Dr. Prateek Andre Potassium [Moles/Vol] 4.5 mmol/L Normal 3.5-5.1 [facility] Comment on above: Performed By: #### C MP, LIPID, TSH #### [facility] [address] [place] [address] Dr. Prateek Andre Protein [Mass/Vol] 7.6 g/dL Normal 6.4-8.2 [facility] Comment on above: Performed By: #### C MP, LIPID, TSH #### [facility] [address] [place] [address] Dr. Prateek Andre Sodium [Moles/Vol] 142 mmol/L Normal 136-145 [facility] Comment on above: Performed By: #### C MP, LIPID, TSH #### [facility] [address] [place] [address] Dr. Prateek Andre Urea nitrogen [Mass/Vol] 13.0 mg/dL Normal 7.0-18.0 [facility] Comment on above: Performed By: #### C MP, LIPID, TSH #### [facility] [address] [place] [address] Dr. Prateek Andre Urea nitrogen/Creatinine [Mass ratio] 16.9 mg/mg Normal [facility] Comment on above: Performed By: #### C MP, LIPID, TSH #### [facility] [address] [place] [address] Dr. Prateek Andre TSHon 12-13-2021 TSH 1.393 uIU/mL Normal 0.358-3.740 [facility] Comment on above: Performed By: #### C MP, LIPID, TSH #### [facility] [address] [place] [address] Dr. Prateek Andre CBC AUTO DIFFon 09-21-2021 BASO # 0.0 103/ul Normal 0.0-0.1 [facility] Comment on above: Performed By: #### C BC #### [facility] [address] [place] [address] Dr. Prateek Andre Basophils/100 WBC (Bld) 0.3 % Normal 0.2-2.0 [facility] Comment on above: Performed By: #### C BC #### [facility] [address] [place] [address] Dr. Prateek Andre EO # 0.0 103/ul Normal 0.0-0.7 [facility] Comment on above: Performed By: #### C BC #### [facility] [address] [place] [address] Dr. Prateek Andre Eosinophils/100 WBC (Bld) 0.0 % Critically low 0.9-7.0 [facility] Comment on above: Performed By: #### C BC #### [facility] [address] [place] [address] Dr. Prateek Andre Erythrocyte distribution width (RBC) [Ratio] 14.6 % Normal 11.0-15.0 [facility] Comment on above: Performed By: #### C BC #### [facility] [address] [place] [address] Dr. Prateek Andre Hematocrit (Bld) [Volume fraction] 40.7 % Normal 36.0-48.0 [facility] Comment on above: Performed By: #### C BC #### [facility] [address] [address] [address] Prateek Andre Hemoglobin (Bld) [Mass/Vol] 12.9 g/dL Normal 12.0-16.0 [facility] Comment on above: Performed By: #### C BC #### [facility] [address] [address] [address] Prateek Andre IG # 0.07 10e3/ul Critically high 0.00-0.03 [facility] Comment on above: Performed By: #### C BC #### [facility] [address] [address] [address] Prateek Andre IG % 0.6 % Critically high 0.0-0.5 [facility] Comment on above: Performed By: #### C BC #### [facility] [address] [address] [address] Prateek Ander LYMPH # 1.2 103/ul Normal 1.2-3.8 [facility] Comment on above: Performed By: #### C BC #### [facility] [address] [address] [address] Prateek Andre Lymphocytes/100 WBC (Bld) 10.2 % Critically low 20.5-60.0 [facility] Comment on above: Performed By: #### C BC #### [facility] [address] [place] [address] Dr. Prateek Andre MANUAL DIFF REQ NO Normal [facility] Comment on above: Performed By: #### C BC #### [facility] [address] [address] [address] Prateek Andre MCH (RBC) [Entitic mass] 29.5 pg Normal 26.7-34.0 [facility] Comment on above: Performed By: #### C BC #### [facility] [address] [address] [address] Prateek Andre MCHC (RBC) [Mass/Vol] 31.7 g/dL Normal 29.9-35.2 [facility] Comment on above: Performed By: #### C BC #### [facility] [address] [address] [address] Prateek Andre MCV (RBC) [Entitic vol] 92.9 fL Normal 81.0-99.0 [facility] Comment on above: Performed By: #### C BC #### [facility] [address] [place] [address] Dr. Prateek Andre MONO # 0.9 103/ul Critically high 0.3-0.8 [facility] Comment on above: Performed By: #### C BC #### [facility] [address] [place] [address] Dr. Prateek Andre Monocytes/100 WBC (Bld) 8.1 % Normal 1.7-12.0 [facility] Comment on above: Performed By: #### C BC #### [facility] [address] [place] [address] Dr. Prateek Andre NEUT # 9.4 103/ul Critically high 1.4-6.5 [facility] Comment on above: Performed By: #### C BC #### [facility] [address] [place] [address] Dr. Prateek Andre Neutrophils/100 WBC (Bld) 80.8 % Critically high 43.0-75.0 [facility] Comment on above: Performed By: #### C BC #### [facility] [address] [place] [address] Dr. Prateek Andre Platelet mean volume (Bld) [Entitic vol] 9.7 fL Normal 9.5-13.5 [facility] Comment on above: Performed By: #### C BC #### [facility] [address] [place] [address] Dr. Prateek Andre PLT 390 103/ul Normal 150-450 [facility] Comment on above: Performed By: #### C BC #### [facility] [address] [place] [address] Dr. Prateek Andre RBC 4.38 106/ul Normal 4.20-5.40 [facility] Comment on above: Performed By: #### C BC #### [facility] [address] [place] [address] Dr. Prateek Andre WBC 11.6 103/ul Critically high 4.0-11.0 [facility] Comment on above: Performed By: #### C BC #### [facility] [address] [place], [place] [address] Dr. Prateek Andre CTA CHEST WO W [...] by: KIKO DIEHL Date: 2021-09-21 12:55 Normal [facility] ER URINE PROFILEon 2 Bilirubin Ql (U) Negative Normal NEGATIVE [facility] Comment on above: Performed By: #### U MICRO, ERUR #### [facility] [address] [place], [place] [address] Dr. Prateek Andre Clarity (U) CLEAR Normal CLEAR [facility] Comment on above: Performed By: #### U MICRO, ERUR #### [facility] [address] [address] [address] Prateek Andre Color (U) LT. YELLOW Normal YELLOW [facility] Comment on above: Performed By: #### U MICRO, ERUR #### [facility] [address] [place] [address] Dr. Prateek GONSALVES A micrscopic examination will be performed if indicated. Normal [facility] Comment on above: Performed By: #### U MICRO, ERUR #### [facility] [address] [address] [address] Prateek Andre Glucose Ql (U) Negative Normal NEGATIVE [facility] Comment on above: Performed By: #### U MICRO, ERUR #### [facility] [address] [place] [address] Dr. Prateek Andre Hemoglobin Ql (U) TRACE-INTACT Abnormal NEGATIVE [facility] Comment on above: Performed By: #### U MICRO, ERUR #### [facility] [address] [place] [address] Dr. Prateek Andre Ketones Ql (U) Negative Normal NEGATIVE [facility] Comment on above: Performed By: #### U MICRO, ERUR #### [facility] [address] [place] [address] Dr. Prateek Andre LEUKOCYTES Negative Normal NEGATIVE [facility] Comment on above: Performed By: #### U MICRO, ERUR #### [facility] [address] [place] [address] Dr. Prateek Andre Nitrite Ql (U) Negative Normal NEGATIVE [facility] Comment on above: Performed By: #### U MICRO, ERUR #### [facility] [address] [place] [address] Dr. Prateek Andre pH (U) 6.0 [pH] Normal 5-9 [facility] Comment on above: Performed By: #### U MICRO, ERUR #### [facility] [address] [place] [address] Dr. Prateek Andre SPEC GRAVITY 1.005 Normal 1.005-<=1.025 [facility] Comment on above: Performed By: #### U MICRO, ERUR #### [facility] [address] [address] [address] Prateek Andre UA PROTEIN Negative Normal NEGATIVE/ TRACE [facility] Comment on above: Performed By: #### U MICRO, ERUR #### [facility] [address] [address] [address] Prateek Andre UR MICRO IND INDICATED Normal [facility] Comment on above: Performed By: #### U MICRO, ERUR #### [facility] [address] [address] [address] Prateek Andre Urobilinogen Qn (U) 0.2 {Garth'U}/dL Normal 0.2 - 1. 0 [facility] Comment on above: Performed By: #### U MICRO, ERUR #### [facility] [address] [address] [address] Prateek Andre PROF 14(COMP METB)on 022 Albumin [Mass/Vol] 4.2 g/dL Normal 3.4-5.0 [facility] Comment on above: Performed By: #### C PACO, HSTROPN ####[facility] [address] [address]DrCoreen Andre Albumin/Globulin [Mass ratio] 1.0 {ratio} Normal [facility] Comment on above: Performed By: #### C MP, HSTROPN ####[facility] [address] [address]Dr. Prateek Andre ALP [Catalytic activity/Vol] 96 U/L Normal 46-116 [facility] Comment on above: Performed By: #### C MP, HSTROPN ####[facility] [address] [address]Dr. Prateek Andre ALT [Catalytic activity/Vol] 14 U/L Normal 14-59 [facility] Comment on above: Performed By: #### C MP, HSTROPN ####[facility] [address] [place] [address]DrCoreen Andre Anion gap [Moles/Vol] 14.0 mmol/L Normal [facility] Comment on above: Performed By: #### C PACO, HSTROPN ####[facility] [address] [place] [address]Dr. Prateek Andre AST [Catalytic activity/Vol] 13 U/L Critically low 15-37 [facility] Comment on above: Performed By: #### C PACO, HSTROPN ####[facility] [address] [place] [address]Dr. Prateek Andre Bilirubin [Mass/Vol] 0.3 mg/dL Normal 0.2-1.0 [facility] Comment on above: Performed By: #### C PACO, HSTROPN ####[facility] [address] [place] [address]Dr. Prateek Andre Calcium [Mass/Vol] 9.8 mg/dL Normal 8.5-10.1 [facility] Comment on above: Performed By: #### C PACO, HSTROPN ####[facility] [address] [place], [place] [address]Dr. Prateek Andre Chloride [Moles/Vol] 106 mmol/L Normal 98-107 [facility] Comment on above: Performed By: #### C PACO, HSTROPN ####[facility] [address] [place], [place] [address]Dr. Prateek Andre CO2 [Moles/Vol] 23.7 mmol/L Normal 21.0-32.0 [facility] Comment on above: Performed By: #### C PACO, HSTROPN ####[facility] [address] [place], [place] [address]Dr. Prateek Andre Creatinine [Mass/Vol] 0.86 mg/dL Normal 0.55-1.02 [facility] Comment on above: Performed By: #### C PACO, HSTROPN ####[facility] [address] [place], [place] [address]Dr. Prateek Andre EGFR-AF FRENCH >60 Normal >=60 [facility] Comment on above: Performed By: #### C PACO, HSTROPN ####[facility] [address] [place], [place] [address]Dr. Prateek Andre EGFR-NON AF FRENCH >60 Normal >=60 [facility] Comment on above: Performed By: #### C PACO, HSTROPN ####[facility] [address] [place] [address]Dr. Prateek Andre Globulin (S) [Mass/Vol] 4.2 g/dL Normal [facility] Comment on above: Performed By: #### C PACO, HSTROPN ####[facility] [address] [place] [address]Dr. Prateek Andre Glucose [Mass/Vol] 117 mg/dL Critically high 74-106 [facility] Comment on above: Performed By: #### C PACO, HSTROPN ####[facility] [address]tn[address] [place] [address]Dr. Prateek Andre Potassium [Moles/Vol] 3.7 mmol/L Normal 3.5-5.1 [facility] Comment on above: Performed By: #### C PACO, HSTROPN ####[facility] [address] [place] [address]Dr. Prateek Andre Protein [Mass/Vol] 8.4 g/dL Critically high 6.4-8.2 [facility] Comment on above: Performed By: #### C PACO, HSTROPN ####[facility] [address] [place] [address]Dr. Prateek Andre Sodium [Moles/Vol] 140 mmol/L Normal 136-145 [facility] Comment on above: Performed By: #### C PACO, HSTROPN ####[facility] [address] [place] [address]Dr. Prateek Andre Urea nitrogen [Mass/Vol] 14.0 mg/dL Normal 7.0-18.0 [facility] Comment on above: Performed By: #### C PACO, HSTROPN ####[facility] [address] [place] [address]Dr. Prateek Andre Urea nitrogen/Creatinine [Mass ratio] 16.3 mg/mg Normal [facility] Comment on above: Performed By: #### C MP, HSTROPN ####[facility] [address] [place] [address]Dr. Prateek Andre TROPONIN, HIGH SENSITIVITYon 09-21-2021 HSTROP 5.3 pg/mL Normal 4.0-51.3 [facility] Comment on above: Result Comment: CUT- OFF POINTS HAVE BEEN ESTABLISHED BASED ON THE FOURTH UNIVERSAL DEFINITIONS OF MYOCARDIAL INFARCTION. THE UPPER REFERENCE LIMIT (URL) OF TROPONIN, DEFINED THE 99TH PERCENTILE OF cTnI DISTRIBUTION IN A REFERENCE POPULATION, HAS BEEN CONFIRMED THE DECISION THRESHOLD FOR PR DIAGNOSIS. Performed By: #### C MP, HSTROPN #### [facility] [address] [address] [address] Prateek Andre URINE MICROSCOPIC ONLYon BACTERIA NONE SEEN Normal NONE SEEN [facility] Comment on above: Performed By: #### U MICRO, ERUR #### [facility] [address] [place] [address] Dr. Prateek Andre Bacteria identified Cx Nom (U) NOT INDICATED Normal [facility] Comment on above: Performed By: #### U MICRO, ERUR #### [facility] [address] [address] [address] Prateek Andre CAST NONE SEEN Normal NONE SEEN [facility] Comment on above: Performed By: #### U MICRO, ERUR #### [facility] [address] [place] [address] Dr. Prateek Andre Crystals LM Nom (Urine sed) NONE SEEN Normal NONE SEEN [facility] Comment on above: Performed By: #### U MICRO, ERUR #### [facility] [address] [address] [address] Prateek Andre Epithelial cells LM Ql (Urine sed) FEW Abnormal NONE SEEN /RARE [facility] Comment on above: Performed By: #### U MICRO, ERUR #### [facility] [address] [place] [address] Dr. Prateek Andre MUCOUS NONE SEEN Normal NONE SEEN [facility] Comment on above: Performed By: #### U MICRO, ERUR #### [facility] [address] [address] [address] Prateek Andre RBC 0-2 Normal 0-2 [facility] Comment on above: Performed By: #### U MICRO, ERUR #### [facility] [address] [address] [address] Prateek Andre WBC NONE SEEN Normal NONE SEEN [facility] Comment on above: Performed By: #### U MICRO, ERUR #### [facility] [address] [address] [address] Prateek Andre CERVICAL SP AP&LT OR 2-3 VWS on 04-17-2021 CERVICAL SP AP&LT OR 2-3 VWS STUDY: CERVICAL SP AP LT OR 2-3 VWS; 04/17/2021 10:28 am INDICATION: PAIN. COMPARISON: 03/06/2021 ACCESSION NUMBER(S): [id number] ORDERING CLINICIAN: Jeffy Lott FINDINGS: Anterior fusion hardware with metallic interbody grafts from C3-C7 unchanged. No new fracture, subluxation, or disc height loss. Trace anterolisthesis C2-3. Degenerative changes appear similar to prior exam. IMPRESSION: Unchanged postoperative appearance of the cervical spine. Normal [facility] CERVICAL SP AP&LT OR 2-3 VWS on 03-06-2021 CERVICAL SP AP&LT OR 2-3 VWS STUDY: CERVICAL SP AP LT OR 2-3 VWS; 03/06/2021 10:20 am INDICATION: PAIN. COMPARISON: 02/15/2021 ACCESSION NUMBER(S): [id number] ORDERING CLINICIAN: Jeffy Lott TECHNIQUE: Weightbearing AP and lateral images of the cervical spine were obtained. FINDINGS: The patient is status post anterior fusion from C3-C7. There are disc space grafts from C3-C7. The hardware appears intact. The prevertebral soft tissues are unremarkable. COMPARISON OF FINDINGS: The spine is similar to the prior exam. IMPRESSION: Status post anterior fusion. No acute findings. Normal [facility] CERVICAL SP AP&LAT OR 2-3 VW Son 02-15-2021 CERVICAL SP AP&LAT OR 2-3 VWS STUDY: CERVICAL SP AP LAT OR 2-3 VWS; 02/15/2021 10:06 am INDICATION: DISC HERNIATION. COMPARISON: 01/28/2021 ACCESSION NUMBER(S): [id number] ORDERING CLINICIAN: Jeffy Lott TECHNIQUE: AP and lateral images of cervical spine were obtained FINDINGS: The patient is status post anterior fusion from C3-C7. There are metallic grafts between C3-C7. The hardware appears intact. COMPARISON OF FINDINGS: The appearance and alignment is similar to the prior exam. IMPRESSION: Status post anterior fusion and disc space grafts. No obvious acute finding. Normal [facility] BASIC MET PANELon 01-30-2021 Anion gap [Moles/Vol] 7 mmol/L Normal 6-18 [facility] Comment on above: Order Comment: CONSE RVATION Performed By: #### L 500.96891, L500.71925 #### Test performed at: [address] [address] Calcium [Mass/Vol] 9.1 mg/dL Normal 8.5-10.1 [facility] Comment on above: Order Comment: CONSE RVATION Performed By: #### L 500.67147, L500.44987 #### Test performed at: [address] [address] Chloride [Moles/Vol] 100 mmol/L Normal 98-107 [facility] Comment on above: Order Comment: CONSE RVATION Performed By: #### L 500.21848, L500.43035 #### Test performed at: [address] [address] CO2 [Moles/Vol] 31 mmol/L Normal 21-32 [facility] Comment on above: Order Comment: CONSE RVATION Performed By: #### L 500.65202, L500.94413 #### Test performed at: [address] [address] Creatinine [Mass/Vol] 0.672 mg/dL Normal 0.550-1.020 [facility] Comment on above: Order Comment: CONSE RVATION Performed By: #### L 500.73401, L500.34772 #### Test performed at: [address] [address] Glucose [Mass/Vol] 98 mg/dL Normal 70-99 [facility] Comment on above: Order Comment: CONSE RVATION Result Comment: Fast ing GLUCOSE reference range has been updated per (ADA) [place] [employer]'s recommendation. 06/29/2018 Performed By: #### L 500.39358, L500.51507 #### Test performed at: [address] [address] OSM 278 mosm/kg Normal 270-300 [facility] Comment on above: Order Comment: CONSE RVATION Performed By: #### L 500.51631, L500.64186 #### Test performed at: [address] [address] Potassium [Moles/Vol] 3.9 mmol/L Normal 3.5-5.1 [facility] Comment on above: Order Comment: CONSE RVATION Performed By: #### L 500.19435, L500.12740 #### Test performed at: [address] [address] Sodium [Moles/Vol] 134 mmol/L Low 136-145 [facility] Comment on above: Order Comment: CONSE RVATION Performed By: #### L 500.77615, L500.42678 #### Test performed at: [address] [address] Urea nitrogen [Mass/Vol] 14 mg/dL Normal 7-18 [facility] Comment on above: Order Comment: CONSE RVATION Performed By: #### L 500.65863, L500.85658 #### Test performed at: [address] [address] CBC W/DIFFon 01-30-2021 BASO ABS 0.0 K/uL Normal 0.0-0.2 [facility] Comment on above: Order Comment: CONSE RVATION Performed By: #### L 500.79528, L500.67127 #### Test performed at: [address] [address] Basophils/100 WBC (Bld) 0.1 % Normal [facility] Comment on above: Order Comment: CONSE RVATION Performed By: #### L 500.04383, L500.54747 #### Test performed at: [address] [address] EOS ABS 0.0 K/uL Normal 0.0-0.5 [facility] Comment on above: Order Comment: CONSE RVATION Performed By: #### L 500.95029, L500.10334 #### Test performed at: [address] [address] Eosinophils/100 WBC (Bld) 0.1 % Normal [facility] Comment on above: Order Comment: CONSE RVATION Performed By: #### L 500.95110, L500.15391 #### Test performed at: [address] [address] IG % 0.3 % Normal [facility] Comment on above: Order Comment: CONSE RVATION Performed By: #### L 500.16295, L500.15107 #### Test performed at: [address] [address] IG ABS 0.05 K/uL Normal 0-0.05 [facility] Comment on above: Order Comment: CONSE RVATION Performed By: #### L 500.99297, L500.28311 #### Test performed at: [address] [address] Lymphocytes (Bld) [#/Vol] 3.5 10*3/uL Normal 1.2-3.5 [facility] Comment on above: Order Comment: CONSE RVATION Performed By: #### L 500.81070, L500.32074 #### Test performed at: [address] [address] Lymphocytes/100 WBC (Bld) 24.4 % Normal [facility] Comment on above: Order Comment: CONSE RVATION Performed By: #### L 500.30816, L500.75738 #### Test performed at: [address] [address] MONO ABS 2.4 K/uL High 0.0-1.0 [facility] Comment on above: Order Comment: CONSE RVATION Performed By: #### L 500.54316, L500.96790 #### Test performed at: [address] [address] Monocytes/100 WBC (Bld) 16.8 % Normal [facility] Comment on above: Order Comment: CONSE RVATION Performed By: #### L 500.43417, L500.96492 #### Test performed at: [address] [address] NEUTROPHIL ABS 8.4 K/uL High 1.4-6.6 [facility] Comment on above: Order Comment: CONSE RVATION Performed By: #### L 500.59501, L500.63447 #### Test performed at: [address] [address] Neutrophils/100 WBC (Bld) 58.3 % Normal [facility] Comment on above: Order Comment: CONSE RVATION Performed By: #### L 500.01037, L500.53582 #### Test performed at: [address] [address] SCREEN REQUIRED YES Normal [facility] Comment on above: Order Comment: CONSE RVATION Result Comment: Lucero pheral Smear reviewed by technologist. Performed By: #### L 500.69029, L500.79964 #### Test performed at: [address] [address] Erythrocyte distribution width (RBC) [Ratio] 14.8 % High 11.5-14.5 [facility] Comment on above: Order Comment: CONSE RVATION Performed By: #### L 500.18023, L500.53417 #### Test performed at: [place] [id number] Hematocrit (Bld) [Volume fraction] 30.3 % Low 36.0-48.0 [facility] Comment on above: Order Comment: CONSE RVATION Performed By: #### L 500.82498, L500.79513 #### Test performed at: [place] [address] Hemoglobin (Bld) [Mass/Vol] 10.0 g/dL Low 12.0-15.0 [facility] Comment on above: Order Comment: CONSE RVATION Performed By: #### L 500.39391, L500.92809 #### Test performed at: [address] [address] MCH (RBC) [Entitic mass] 30.2 pg Normal 25.4-34.6 [facility] Comment on above: Order Comment: CONSE RVATION Performed By: #### L 500.84065, L500.94393 #### Test performed at: [place] [id number] MCHC (RBC) [Mass/Vol] 33.0 g/dL Normal 31.5-36.5 [facility] Comment on above: Order Comment: CONSE RVATION Performed By: #### L 500.52129, L500.67833 #### Test performed at: [address] [address] MCV (RBC) [Entitic vol] 91.5 fL Normal 79.0-98.0 [facility] Comment on above: Order Comment: CONSE RVATION Performed By: #### L 500.82607, L500.56491 #### Test performed at: [address] [address] NRBC # 0.000 K/uL Normal 0-0.012 [facility] Comment on above: Order Comment: CONSE RVATION Performed By: #### L 500.84619, L500.38323 #### Test performed at: [address] [address] NRBC % 0.0 /100 WBC Normal 0-0.2 [facility] Comment on above: Order Comment: CONSE RVATION Performed By: #### L 500.05690, L500.08952 #### Test performed at: [address] [address] Platelet mean volume (Bld) [Entitic vol] 9.9 fL Normal 8.7-12.4 [facility] Comment on above: Order Comment: CONSE RVATION Performed By: #### L 500.79354, L500.30991 #### Test performed at: [address] [address] Platelets (Bld) [#/Vol] 294 10*3/uL Normal 140-440 [facility] Comment on above: Order Comment: CONSE RVATION Performed By: #### L 500.04344, L500.49218 #### Test performed at: [address] [address] RBC (Bld) [#/Vol] 3.31 10*6/uL Low 3.5-5.5 [facility] Comment on above: Order Comment: CONSE RVATION Performed By: #### L 500.62105, L500.75738 #### Test performed at: [address] [address] WBC (Bld) [#/Vol] 14.4 10*3/uL High 3.9-11.0 [facility] Comment on above: Order Comment: CONSE RVATION Performed By: #### L 500.82299, L500.55926 #### Test performed at: [place] [address] Discharge CCD Assessmenton [address] [facility] Patient: NICOLETTE GARZA [address] [place], [place] [id number] MR#: [id number] DISCHARGE CCD ASSESSMENT : 74 Service Date: 01/30/21 1503 Discharge CCD Assessment Assessment Patient discharged home to continue pain control, wound care, and exercises. Electronically Signed eSign Date and Time Celio Patton 01/30/21 1504 Jeffy Lott MD Normal [facility] EST. CREAT CLRon 01-30-2021 EST. CREAT CLR 116.369 ML/MIN Normal [facility] Comment on above: Order Comment: CONSE RVATION Result Comment: This result is an ESTIMATED blood creatinine clearance value which is derived from the patient age, sex, weight, and previous blood creatinine result. Performed By: #### L 500.57225, L500.75377 #### Test performed at: [place] [address] GFR ESTIMATEon 01-30-2021 IF AMER > 60 Normal > 60 [facility] Comment on above: Order Comment: CONSE [...] for clinical interpretation. Performed By: #### L 500.40692, L500.87431 #### Test performed at: [place] [address] IF non-AFR AMER > 60 Normal > 60 [facility] Comment on above: Order Comment: CONSE RVATION Performed By: #### L 500.16232, L500.62123 #### Test performed at: [place] [address] Internal Med Progress Noteon 01-30-2021 [address] Med Progress Note [facility] Patient: NICOLETTE GARZA [address] [place], [place] [id number] MR#: [id number] PROGRESS NOTE - Internal Medicine : 74 Service Date: 01/30/21406 Subjective Primary Resident: Ameena Campos After Hours [...] AND Output Verdana 4d 01/30 2300 01/29 230 Intake Total 425 2452 Output Total 1800 [...] No murmurs, rubs or gallops. Abd: benign. WELDING ESTIMATOR: Decreased sensation to forearms and hands bilaterally. [...] RES Hause-Wardega, Katarzyna MD 01/30/[address] [facility] Orthopedic Progress Noteon [address] [facility] Patient: NICOLETTE GARZA [address] [place] [address] MR#: [id number] PROGRESS NOTE - Orthopedic : 74 Service Date: 01/30/21 1544 Subjective Summary of Stay POD#2 s/p ACDF [...] Ox 96 01/30 1436 B/P 143/76 01/30 143 Pulse 92 01/30 143 Resp 15 01/30 143 Temp 36.6 01/30 1323 O2 Delivery NASAL [...] is understanding and agreebale to plan. Dr. Lott aware of plan. IM: -Continue monitoring PT/OT: -Continue evaluating and trating -FWB -Collar at all times Pain Control: -Percocet -Tylenol -Soma DVT PPX: -Ambulating -Ankle pumps Electronically Signed eSign Date and Time Lois Noriega 01/30/21 1600 Jeffy Lott MD Normal [facility] Transfer Noteon 01-30-[address] [facility] Patient: NICOLETTE GARZA [address] [place] [address] MR#: [id number] TRANSFER NOTE : Service Date: 01/30/21 1009 [...] (%) 58.3 Lymph % (Auto) (%) 24.4 [place] % (Auto) (%) 16.8 Eos % (Auto) [...] Date and Time Evelyne Olmos Residen 02/01/[address] [facility] Transfer Note [facility] Patient: NICOLETTE GARZA [address] [place] [address] MR#: [id number] TRANSFER NOTE : Service Date: 01/30/21 0924 Transfer/Acceptance Note Transfer/Accept Resident Transferring Resident: Lexx [...] No murmurs, rubs or gallops. Abd: benign. WELDING ESTIMATOR: Decreased sensation to forearms and hands bilaterally. [...] Signed eSign Date and Time Lexx Campos Reside 01/31/[address] [facility] Anesthesia Noteon 01-29-[address] [facility] Patient: NICOLETTE GARZA [address] [place] [address] MR#: [id number] ANESTHESIA NOTE : Service Date: 01/29/21 0815 [...] Moreno 01/29/21 0816 Stephen Padron MD Normal [facility] BASIC MET PANELon 01-29-2021 Anion gap [Moles/Vol] 12 mmol/L Normal 6-18 [facility] Comment on above: Order Comment: CONSE RVATION Performed By: #### L 500.28420, L500.36106, L500.74729 ####Test performed at: [address] [address] Calcium [Mass/Vol] 9.2 mg/dL Normal 8.5-10.1 [facility] Comment on above: Order Comment: CONSE RVATION Performed By: #### L 500.26030, L500.96777, L500.64463 ####Test performed at: [address] [address] Chloride [Moles/Vol] 102 mmol/L Normal 98-107 [facility] Comment on above: Order Comment: CONSE RVATION Performed By: #### L 500.47829, L500.39367, L500.63802 ####Test performed at: [address] [address] CO2 [Moles/Vol] 25 mmol/L Normal 21-32 [facility] Comment on above: Order Comment: CONSE RVATION Performed By: #### L 500.62726, L500.43026, L500.52364 ####Test performed at: [address] [address] Creatinine [Mass/Vol] 0.823 mg/dL Normal 0.550-1.020 [facility] Comment on above: Order Comment: CONSE RVATION Performed By: #### L 500.08050, L500.20815, L500.23406 ####Test performed at: [address] [address] Glucose [Mass/Vol] 141 mg/dL High 70-99 [facility] Comment on above: Order Comment: CONSE RVATION Result Comment: Fast ing GLUCOSE reference range has been updated per (ADA) [place] [employer]'s recommendation. 06/29/2018 Performed By: #### L 500.50286, L500.19572, L500.06481 ####Test performed at: [address] [address] OSM 282 mosm/kg Normal 270-300 [facility] Comment on above: Order Comment: CONSE RVATION Performed By: #### L 500.82685, L500.53381, L500.92862 ####Test performed at: [address] [address] Potassium [Moles/Vol] 4.2 mmol/L Normal 3.5-5.1 [facility] Comment on above: Order Comment: CONSE RVATION Performed By: #### L 500.70709, L500.98981, L500.36429 ####Test performed at: [address] [address] Sodium [Moles/Vol] 135 mmol/L Low 136-145 [facility] Comment on above: Order Comment: CONSE RVATION Performed By: #### L 500.79002, L500.91160, L500.23495 ####Test performed at: [address] [address] Urea nitrogen [Mass/Vol] 13 mg/dL Normal 7-18 [facility] Comment on above: Order Comment: CONSE RVATION Performed By: #### L 500.52633, L500.40253, L500.60457 ####Test performed at: [address] [address] CBC W/DIFFon 01-29-2021 BASO ABS 0.0 K/uL Normal 0.0-0.2 [facility] Comment on above: Order Comment: CONSE RVATION Performed By: #### L 200.25298 ####Test performed at: [address] [address] Basophils/100 WBC (Bld) 0.1 % Normal [facility] Comment on above: Order Comment: CONSE RVATION Performed By: #### L 200.97360 ####Test performed at: [address] [address] EOS ABS 0.0 K/uL Normal 0.0-0.5 [facility] Comment on above: Order Comment: CONSE RVATION Performed By: #### L 200.60250 ####Test performed at: [address] [address] Eosinophils/100 WBC (Bld) 0.0 % Normal [facility] Comment on above: Order Comment: CONSE RVATION Performed By: #### L 200.92116 ####Test performed at: [address] [address] IG % 0.4 % Normal [facility] Comment on above: Order Comment: CONSE RVATION Performed By: #### L 200.29388 ####Test performed at: [address] [address] IG ABS 0.06 K/uL High 0-0.05 [facility] Comment on above: Order Comment: CONSE RVATION Performed By: #### L 200.20165 ####Test performed at: [address] [address] Lymphocytes (Bld) [#/Vol] 1.0 10*3/uL Low 1.2-3.5 [facility] Comment on above: Order Comment: CONSE RVATION Performed By: #### L 200.07065 ####Test performed at: [address] [address] Lymphocytes/100 WBC (Bld) 7.4 % Normal [facility] Comment on above: Order Comment: CONSE RVATION Performed By: #### L 200.18649 ####Test performed at: [address] [address] MONO ABS 0.9 K/uL Normal 0.0-1.0 [facility] Comment on above: Order Comment: CONSE RVATION Performed By: #### L 200.51879 ####Test performed at: [address] [address] Monocytes/100 WBC (Bld) 6.6 % Normal [facility] Comment on above: Order Comment: CONSE RVATION Performed By: #### L 200.81737 ####Test performed at: [address] [address] NEUTROPHIL ABS 12.0 K/uL High 1.4-6.6 [facility] Comment on above: Order Comment: CONSE RVATION Performed By: #### L 200.10934 ####Test performed at: [address] [address] Neutrophils/100 WBC (Bld) 85.5 % Normal [facility] Comment on above: Order Comment: CONSE RVATION Performed By: #### L 200.20444 ####Test performed at: [address] [address] WBC (Bld) [#/Vol] 14.0 10*3/uL High 3.9-11.0 [facility] Comment on above: Order Comment: CONSE RVATION Result Comment: Delt a: 6.2 on 01/15/21-1505 Performed By: #### L 200.28135 ####Test performed at: [address] [address] Erythrocyte distribution width (RBC) [Ratio] 14.5 % Normal 11.5-14.5 [facility] Comment on above: Order Comment: CONSE RVATION Performed By: #### L 200.88562 ####Test performed at: [address] [address] Hematocrit (Bld) [Volume fraction] 32.4 % Low 36.0-48.0 [facility] Comment on above: Order Comment: CONSE RVATION Performed By: #### L 200.40480 ####Test performed at: [address] [address] Hemoglobin (Bld) [Mass/Vol] 10.7 g/dL Low 12.0-15.0 [facility] Comment on above: Order Comment: CONSE RVATION Performed By: #### L 200.36931 ####Test performed at: [address] [address] MCH (RBC) [Entitic mass] 30.2 pg Normal 25.4-34.6 [facility] Comment on above: Order Comment: CONSE RVATION Performed By: #### L 200.35343 ####Test performed at: [address] [address] MCHC (RBC) [Mass/Vol] 33.0 g/dL Normal 31.5-36.5 [facility] Comment on above: Order Comment: CONSE RVATION Performed By: #### L 200.64480 ####Test performed at: [address] [address] MCV (RBC) [Entitic vol] 91.5 fL Normal 79.0-98.0 [facility] Comment on above: Order Comment: CONSE RVATION Performed By: #### L 200.91206 ####Test performed at: [address] [address] NRBC # 0.000 K/uL Normal 0-0.012 [facility] Comment on above: Order Comment: CONSE RVATION Performed By: #### L 200.87472 ####Test performed at: [place] [address] NRBC % 0.0 /100 WBC Normal 0-0.2 [facility] Comment on above: Order Comment: CONSE RVATION Performed By: #### L 200.95223 ####Test performed at: [place] [address] Platelet mean volume (Bld) [Entitic vol] 10.2 fL Normal 8.7-12.4 [facility] Comment on above: Order Comment: CONSE RVATION Performed By: #### L 200.78655 ####Test performed at: [place] [address] Platelets (Bld) [#/Vol] 315 10*3/uL Normal 140-440 [facility] Comment on above: Order Comment: CONSE RVATION Performed By: #### L 200.45024 ####Test performed at: [place] [id number] RBC (Bld) [#/Vol] 3.54 10*6/uL Normal 3.5-5.5 [facility] Comment on above: Order Comment: CONSE RVATION Performed By: #### L 200.40284 ####Test performed at: [place] [id number] EST. CREAT CLRon 01-29-2021 EST. CREAT CLR 95.018 ML/MIN Normal [facility] Comment on above: Order Comment: CONSE RVATION Result Comment: This result is an ESTIMATED blood creatinine clearance value which is derived from the patient age, sex, weight, and previous blood creatinine result. Performed By: #### L 500.68128, L500.74248, L500.38806 ####Test performed at: [place] [address] GFR ESTIMATEon 01-29-2021 IF AMER > 60 Normal > 60 [facility] Comment on above: Order Comment: CONSE [...] for clinical interpretation. Performed By: #### L 500.87837, L500.22142, L500.08698 ####Test performed at: [place] [address] IF non-AFR AMER > 60 Normal > 60 [facility] Comment on above: Order Comment: CONSE RVATION Performed By: #### L 500.65331, L500.95371, L500.30450 ####Test performed at: [place] [address] Internal Med Progress Noteon 01-29-20[address] Med Progress Note [facility] Patient: NICOLETTE GARZA [address] [place] [address] MR#: [id number] PROGRESS NOTE - Internal Medicine : 74 [...] Result Date Time Pulse Ox 95 01/29 06 Pulse 70 01/29 0646 Resp 22 01/29 0646 B/P 143/81 01/29 0449 Temp 36.7 01/29 0449 O2 Delivery NASAL CANNULA 01/28 1530 O2 Flow Rate 3 01/28 1530 Intake AND Output Verdana 4d 01/29 2300 01/28 2300 Intake Total 1050 600 Output Total [...] Mood NL Results Results All Laboratory Tests 01/29 450 Chemistry Sodium (136 - 145 mmol/L) 135 [...] No murmurs, rubs or gallops. Abd: benign. WELDING ESTIMATOR: Decreased sensation to forearms and hands bilaterally. No motor deficits. 01/29/21449: 01/29/21449: Plan: -IV fluids RL 100cc/ hour -PT/OT [...] Agree with above documentation. The [resident's, PA's, ELECTRIC CLOCK MECHANIC's] assessment and plan reflect my input. Discussed with documenting provider and patient. Plan is as outlined above. Electronically Signed eSign Date (more content not included)... Normal [facility] OT Therapy Recommendationson 01-29-[address] [facility] Patient: NICOLETTE GARZA [address] [place] [id number] MR#: [id number] OT THERAPY RECOMMENDATIONS : 74 Service Date: 01/29/21 1326 Therapy Recommendations Therapy Recommendations Recommendations Occupational therapy eval complete. No skilled OT indicated. Recommend home with family assist. D/C OT services. Electronically Signed eSign Date and Time Fee,Acacia OT 01/29/[address] [facility] Orthopedic Progress Noteon [address] [facility] Patient: NICOLETTE GARZA [address] [place] [id number] MR#: [id number] PROGRESS NOTE - Orthopedic : 74 Service [...] Patient is understanding and agreeable to plan. Dr. Lott aware of plan. IM: -Continue monitoring PT/OT: -Continue evaluating and treating -FWB -Hard collar at all times Pain Control: -Percocet -Tylenol -Soma DVT PPX -Ambulating -Ankle pumps -SCDs Drain to joshua intact Electronically Signed eSign Date and Time Lois Noriega 01/29/21 1550 Jeffy Lott MD Normal [facility] PT Therapy Recommendationson 01-29-[address] [facility] Patient: NICOLETTE GARZA [address] [place] [address] MR#: [id number] PT THERAPY RECOMMENDATIONS : 74 Service Date: 01/29/21 1350 Therapy Recommendations Therapy Recommendations Recommendations PT EVAL COMPLETED. DC RECOMM: HOME NO PT SERVICES. Electronically Signed eSign Date and Time Tricia Mc PT 01/29/[address] [facility] z OT Inpatient Discharge Not liana 01-29-2021 z OT Inpatient Discharge Note [facility] Patient: NICOLETTE GARZA [address] [place] [address] MR#: [id number] OT INPATIENT DISCHARGE NOTE : 74 Service [...] DISCHARGED Electronically Signed eSign Date and Time FeeAcacia OT 01/29/[address] [facility] z OT Inpatient Evaluationon 01-29-[address] [facility] Patient: NICOLETTE GARZA [address] [place] [address] MR#: [id number] OT INPATIENT EVALUATION : 74 Inpatient OT HPI Date of Service 01/29/21 Time In: 1055 Time Out: 1121 Total Treatment Time (Mins) 26 Visit Reason ROE CERVICAL C3-4,C4-5,C5-6,C6-7,SPO NDYLOSIS W/MY Surgery Type/Date ACDF C3-7 01/28/21 Referral Date 01/28/21 Tx Diagnosis: CERVICALGIA Insurance Name [facility] Hospital Course POD#1. RN cleared pt. to [...] return understanding verbalized. AE/DME recommendation: Shower seat Oil Tank Car Cleaner Transfers Transfers Supine to Sit Modified Independent [...] Yes Electronically Signed eSign Date and Time Acacia Gordillo OT 01/29/[address] [facility] z PT Inpatient Discharge Not liana 01-29-2021 z PT Inpatient Discharge Note [facility] Patient: NICOLETTE GARZA [address] [id number] MR#: [id number] PT INPATIENT DISCHARGE NOTE : 74 Service [...] Time Tricia Mc PT 01/29/[address] [facility] z PT Inpatient Evaluationon 01-29-[address] [facility] Patient: NICOLETTE GARZA [address] [id number] MR#: [id number] PT INPATIENT EVALUATION : 74 Service Date: 01/29/21 1433 Inpatient PT HPI Date of Service 01/29/21 Time In: 1215 Time Out: 1245 Total Treatment Time (Mins) 10 Room Number 349 Visit Reason ROE CERVICAL C3-4,C4-5,C5-6,C6-7,SPO NDYLOSIS W/MY Surgery Type: acdf c3-4,4-5.5-6,6-7 with cages and plate Surgery Date: 01/28/21 Referral Date 01/28/21 Tx Diagnosis: CERVICALGIA Insurance Name [facility] Hospital Course 50 Y/O PATIENT ADMITTED TO [...] Strength: WITHIN FUNCTIONAL LIMITS Outcome Measures Modified [place] Score 0-No Symptoms AM-PAC Inpatient Mobility AM-PAC [...] Recommendations Home-No Home Health Care Topic #1 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 Brief Noteon 01-28-[address] [facility] Patient: NICOLETTE GARZA [address] [place] [address] MR#: [id number] BRIEF NOTE : 74 Service Date: 01/28/21 [...] Signed eSign Date and Time Bonita Dennis Mohamed RES 01/29/212009 Normal [facility] Internal Medicine Consultati onon 01-28-[address] [facility] Patient: NICOLETTE GARZA [address] [place] [id number] MR#: [id number] CONSULTATION - Internal Medicine : 74 Service Date: 01/28/21 1429 History of Present Illness Referring Physician Jeffy Lott MD Consulted Physician Rachael Avila MD Reason [...] wheezes Electronically Signed eSign Date and Time Alsallamin,Afnan Resid 01/30/21 1551 Rachael Avila MD 01/29/21 1303 [address] Res Normal [facility] OPERATIVE REPORTon OPERATIVE REPORT NAME: NICOLETTE GARZA MR#: [id number] SURGEON: Jeffy Lott MD DATE OF SURGERY: 01/28/2021 OPERATIVE REPORT [...] structures. Intraoperative neuromonitoring was performed by an on-website developer and an offsite physician who was continuously monitoring the case. This was Dr. Oneal. Dr. Oneal was available throughout the case by written e-mail or phone communication. Intraoperative monitoring modalities utilized for SSEP uppers, SSEP lowers, MEP, SEMG, EEG, and [id number]. Pre and post positioning neuromonitoring were performed [...] that all posterior compressive pathology had been [facility] PT NAME: NICOLETTE GARZA MR#: [id number] [address] [place] [address] ACCT: [id number] : 74 OPERATIVE REPORT removed. The endplates [...] trachea, esophagus, (more content not included)... Normal [facility] POC UR HCGon 01-28-2021 POC UR HCG Negative Normal [facility] Comment on above: Order Comment: CBN: NO [place]: MAIN ON BOARD QC CHECK FOR HCG OK? Y Test performed by: ENOC POC HCG RESULT: NEGATIVE Performed By: #### L 600.25167 #### Test performed at: [place] [address] Primary Residenton 1 Primary Resident [facility] Pt Name: NICOLETTE GARZA MR#: [id number] [address] [place] [address] ACCT: [id number] [place] [address] : 74 Service Date: 01/28/21 1538 Primary Resident/Call Primary Resident: [id number] Prosper Aguilera After Hours Call: ICU team Electronically Signed eSign Date and Time Bonita Dennis 01/28/[address] [facility] Primary Resident [facility] Pt Name: NICOLETTE GARZA MR#: [id number] [address] ACCT: [id number] [place] [address] : 74 Service Date: 01/28/21 1429 Primary Resident/Call Primary Resident: [phone] afissa After Hours Call: [phone] Red Team Electronically Signed eSign Date and Time Alsallamin,Afnan Resid 01/28/[address] [facility] CERVICAL SP AP&LAT OR 2-3 VW Son 01-25-2021 CERVICAL SP AP&LAT OR 2-3 VWS STUDY: CERVICAL SP AP LAT OR 2-3 VWS; 01/28/2021 1:30 pm INDICATION: ACDF C3-C4,C4-C5,C5-C6,C6-C7 . COMPARISON: None. ACCESSION NUMBER(S): [id number] ORDERING CLINICIAN: Jeffy Lott FINDINGS: Intraoperative fluoroscopy of the cervical spine obtained for localization. IMPRESSION: As above Normal [facility] CORONAVIRUSon 01-25-2021 SARS-CoV-2 (COVID-19) RNA JENN+probe [...] and Drug Administration's Emergency Use Authorization. [facility] COVID-[facility] Direct Letter of Authorization, along with the authorized Fact Sheet for Healthcare Providers, the authorized Fact Sheet for Patients, and authorized labeling are available on the FDA website: https://www.fda.gov/Med icalDevices/Safety/ EmergencySituations/ucm 223027.htm COVID-19 Negative for COVID-19 (SARS-CoV-2 RNA) Normal [facility] Comment on above: Order Comment: CBN: YES [place]: MAIN COVID Testing: PRE-OP/PROCEDURE SCREEN Comment: 01/28 AGE at Spec ALEX 50 Report age at specimen ALEX? Y First test: UNKNOWN Employed in Healthcare: NO Symptomatic as defined by CDC: NO Hospitalized for COVID-19? NO ICU: NO [facility] Care Setting: NO Order Date: 01/25/21 : Not Performed By: #### M 400.33174 #### Test performed at: [address] [address] BASIC MET PANELon 01-15-2021 Anion gap [Moles/Vol] 10 mmol/L Normal 6-18 [facility] Comment on above: Performed By: #### L 500.20857, L500.72838 #### Test performed at: [address] [address] Calcium [Mass/Vol] 9.1 mg/dL Normal 8.5-10.1 [facility] Comment on above: Performed By: #### L 500.34825, L500.46474 #### Test performed at: [address] [address] Chloride [Moles/Vol] 108 mmol/L High 98-107 [facility] Comment on above: Performed By: #### L 500.32232, L500.86955 #### Test performed at: [address] [address] CO2 [Moles/Vol] 28 mmol/L Normal 21-32 [facility] Comment on above: Performed By: #### L 500.59376, L500.66780 #### Test performed at: [address] [address] Creatinine [Mass/Vol] 0.941 mg/dL Normal 0.550-1.020 [facility] Comment on above: Performed By: #### L 500.77690, L500.33857 #### Test performed at: [address] [address] Glucose [Mass/Vol] 105 mg/dL High 70-99 [facility] Comment on above: Result Comment: Fast ing GLUCOSE reference range has been updated per (ADA) [place] Diabetes Association's recommendation. 06/29/2018 Performed By: #### L 500.46976, L500.35472 #### Test performed at: [address] [address] OSM 296 mosm/kg Normal 270-300 [facility] Comment on above: Performed By: #### L 500.44139, L500.45891 #### Test performed at: [address] [address] Potassium [Moles/Vol] 4.2 mmol/L Normal 3.5-5.1 [facility] Comment on above: Performed By: #### L 500.78968, L500.40742 #### Test performed at: [address] [address] Sodium [Moles/Vol] 142 mmol/L Normal 136-145 [facility] Comment on above: Performed By: #### L 500.75031, L500.77323 #### Test performed at: [address] [address] Urea nitrogen [Mass/Vol] 18 mg/dL Normal 7-18 [facility] Comment on above: Performed By: #### L 500.87280, L500.55794 #### Test performed at: [address] [address] CBC W/DIFFon 01-15-2021 BASO ABS 0.1 K/uL Normal 0.0-0.2 [facility] Comment on above: Performed By: #### L 200.31991 #### Test performed at: [address] [address] Basophils/100 WBC (Bld) 1.5 % Normal [facility] Comment on above: Performed By: #### L 200.98366 #### Test performed at: [address] [address] EOS ABS 0.4 K/uL Normal 0.0-0.5 [facility] Comment on above: Performed By: #### L 200.77115 #### Test performed at: [address] [address] Eosinophils/100 WBC (Bld) 5.7 % Normal [facility] Comment on above: Performed By: #### L 200.92348 #### Test performed at: [address] [address] Erythrocyte distribution width (RBC) [Ratio] 14.6 % High 11.5-14.5 [facility] Comment on above: Performed By: #### L 200.23337 #### Test performed at: [address] [address] Hematocrit (Bld) [Volume fraction] 36.2 % Normal 36.0-48.0 [facility] Comment on above: Performed By: #### L 200.36331 #### Test performed at: [address] [address] Hemoglobin (Bld) [Mass/Vol] 11.8 g/dL Low 12.0-15.0 [facility] Comment on above: Performed By: #### L 200.87725 #### Test performed at: [address] [address] IG % 0.3 % Normal [facility] Comment on above: Performed By: #### L 200.89543 #### Test performed at: [address] [address] IG ABS 0.02 K/uL Normal 0-0.05 [facility] Comment on above: Performed By: #### L 200.15759 #### Test performed at: [address] [address] Lymphocytes (Bld) [#/Vol] 2.8 10*3/uL Normal 1.2-3.5 [facility] Comment on above: Performed By: #### L 200.72320 #### Test performed at: [place] [address] Lymphocytes/100 WBC (Bld) 45.0 % Normal [facility] Comment on above: Performed By: #### L 200.01670 #### Test performed at: [address] [address] MCH (RBC) [Entitic mass] 30.8 pg Normal 25.4-34.6 [facility] Comment on above: Performed By: #### L 200.49882 #### Test performed at: [address] [address] MCHC (RBC) [Mass/Vol] 32.6 g/dL Normal 31.5-36.5 [facility] Comment on above: Performed By: #### L 200.95005 #### Test performed at: [address] [address] MCV (RBC) [Entitic vol] 94.5 fL Normal 79.0-98.0 [facility] Comment on above: Performed By: #### L 200.17377 #### Test performed at: [address] [address] MONO ABS 0.9 K/uL Normal 0.0-1.0 [facility] Comment on above: Performed By: #### L 200.72196 #### Test performed at: [address] [address] Monocytes/100 WBC (Bld) 14.6 % Normal [facility] Comment on above: Performed By: #### L 200.23041 #### Test performed at: [address] [address] NEUTROPHIL ABS 2.0 K/uL Normal 1.4-6.6 [facility] Comment on above: Performed By: #### L 200.99275 #### Test performed at: [address] [address] Neutrophils/100 WBC (Bld) 32.9 % Normal [facility] Comment on above: Performed By: #### L 200.73165 #### Test performed at: [address] [address] NRBC # 0.000 K/uL Normal 0-0.012 [facility] Comment on above: Performed By: #### L 200.57707 #### Test performed at: [address] [address] NRBC % 0.0 /100 WBC Normal 0-0.2 [facility] Comment on above: Performed By: #### L 200.33200 #### Test performed at: [address] [address] Platelet mean volume (Bld) [Entitic vol] 10.5 fL Normal 8.7-12.4 [facility] Comment on above: Performed By: #### L 200.00674 #### Test performed at: [place] [address] Platelets (Bld) [#/Vol] 337 10*3/uL Normal 140-440 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 Garza is a 50-year-old lady and I have been consulted by Dr. Lott for preoperative clearance before undergoing C3-C7 ACDF [...] plate. 2. Otherwise, pretty much normal physical. [facility] PT NAME: NICOLETTE GARZA MR#: [id number] [address] [place] [address] ACCT: [id number] : 74 CONSULTATION PLAN: The patient's physical [...] courtesy of this consultation. MELITON GIBSON MD MS/MODL/[id number] E/S: Meliton Gibson MD 01/15/21 6938 Electronically Signed [facility] PT NAME: NICOLETTE GARZA MR#: [id number] [address] [place] [address] ACCT: [id number] : [address] [facility] GFR ESTIMATEon 01-15-2021 IF AMER > 60 Normal > 60 [facility] Comment on above: Result Comment: eGFR (Estimated GFR) Units of measure:mL/min/1.73 meters sq. *CALCULATION REVISED 01/23/2015;IDMS-traceable MDRD equation eGFR is derived from the reexpressed MDRD Study equation using the following parameters: serum creatinine, age, gender and race. An eGFR<60 mL/min/1.73m2 for >3 months is consistent with chronic kidney disease. Refer to KDOQI guidelines for clinical interpretation. Performed By: #### L 500.82475, L500.61692 #### Test performed at: [place] [address] IF non-AFR AMER > 60 Normal > 60 [facility] Comment on above: Performed By: #### L 500.73352, L500.58869 #### Test performed at: [place] [address] CERV SP W OBL/FLEX/EXT 6 OR >on 01-02-2021 CERV SP W OBL/FLEX/EXT 6 OR > STUDY: CERV SP W OBL/FLEX/EXT 6 OR > ; 01/02/2021 9:36 am INDICATION: PAIN. COMPARISON: None. ACCESSION NUMBER(S): [id number] ORDERING CLINICIAN: Jeffy Lott FINDINGS: No fracture or subluxation. Severe disc height loss with endplate osteophytes C4-5 and C5-6. Mild disc height loss C6-7. Straightening of the cervical spine. No spondylolisthesis. Lower cervical predominant facet arthropathy. No instability on flexion or extension. Evaluation of the neural foramina is severely limited due to suboptimal positioning. 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 Normal [facility] Vital Signs Date Time Vital Sign Value Performing Clinician Aaron abdi 02-09-2024 13:17-0500 Blood Pressure Location Jessica FRY [facility] 02-09-2024 13:17-0500 Diastolic blood pressure 88 mm[Hg] Jessica FRY [facility] 02-09-2024 13:17-0500 Heart rate 72 /min Jessica NILL [facility] 02-09-2024 13:17-0500 Respiratory rate 16 /min Jessica NILL [facility] 02-09-2024 13:17-0500 Systolic blood pressure 124 mm[Hg] Jessica NILL [facility] Encounters Encounter Date Encounter Type Care Provider Facility Start: 03-09-2024 End: 03-09-2024 ambulatory Jessica FRY Facility:CD:[id number] Start: 02-09-2024 End: 02-09-2024 ambulatory Bassam Worthington Facility:[facility] Start: 02-09-2024 End: 02-09-2024 Patient encounter procedure Jessica FRY [facility] Start: 12-28-2023 ambulatory Bassam Worthing[place] Facility:[facility] Start: 12-20-2021 Encounter for genera l adult medical examination without abnormal findings DR BASSAM WOR[facility] Start: 12-13-2021 End: 12-14-[address] BASSAM WORTHINGTON Facility:[facility] Start: 12-13-2021 End: 12-14-2021 Encounter for general adult medical examination without abnormal findings DR BASSAM WORTHINGTON Facility:[facility] Start: 09-21-2021 End: 09-21-2021 ambulatory CK RODAS Facility:[facility] Procedures Date Procedure Procedure Detail Performing Clinician History of surgical procedure on cervical spine Jessica RASHEEDL Immunizations Immunization Date Immunization Notes Care Provider Fa garrett 09-24-2020 SARS-CoV-2 (COVID-19 ) mRNA BNT-162b2 vax Jessica NILL [facility] 08-22-2020 SARS-CoV-2 (COVID-19 ) mRNA BNT-162b2 vax Jessica NILL [facility] Payers Date Payer Category Payer Unknown [id number] 1970 Unknown [id number] 2.16.84 [id number] 1972 Unknown [id number] 2.16.84 [id number] 1972 Unknown [id number] 2.16.8 [id number] 1972 Unknown [id number] 2.16.8 [id number] 1959 Unknown [id number] Social History Date Type Detail Facility Start: 02-09-2024 Tobacco smoking status Ex-smoker (fi nding) [facility] Tobacco smoking status Never [facility] Sex Assigned At Female [facility] Functional Status Date Assessment Result Facility 02-09-2024 Functional Status N/A [facility] Clinical Note 02-09-2024 Note Date & Type Note Facility 02-09-2024 Note [facility] Surgery Offi ce/Clinic Note Chief Complaint consultation [...] SARS-CoV-2 (COVID-19) mRNA BNT-162b2 vax 08/22/2020 Recorded [facility] Comment on above: Result Comment: Elec tronically Signed By: ANG LEVIN, Jessica Limon\Date and Time Signed: 02/09/24 13:49 EST Discharge summary note 01-28-2021 Note Date & Type Note Facility 01-28-2021 Note NAME: NICOLETTE GARZA MR#: [id number] ADMIT DATE: 01/28/2021 DISCHARGE DATE: 01/30/2021 DISCHARGE [...] or swallowing and voice is strong. 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 Incision is well [...] possible and continue taking all of her [facility] PT NAME: NICOLETTE GARZA MR#: [id number] [address] [place] [address] ACCT: [id number] : 74 DISCHARGE SUMMARY medications as directed and keep all of her outpatient followup appointment as scheduled. She is being discharged back to her home with self care. JEFFY LOTT MD /[facility]/[id number] E/S: Jeffy Lott MD 04/08/21 1225 Electronically Signed [facility] PT NAME: NICOLETTE GARZA MR#: [id number] [address] [place] [address] ACCT: [id number] : [address] [facility] Evaluation + Plan note Note Date & Type Note Facility Evaluation + Plan note No data available for this section [facility] Hospital Discharge instructions Note Date & Type Note Facility Hospital Discharge instructions No data available for this section [facility] Progress note Note Date & Type Note Facility Progress note No data available for this section [facility] Summary Purpose Family History No Family History Records FoundNo Family History Records Found No data available for this section No Family History Records Found Advance Directives No Advanced Directives Records FoundNo Advanced Directives Records FoundNo Advanced Directives Records Found Additional Source Comments INFORMATION SOURCE (unrecogn ized section and content) DATE CREATED AUTHOR 05/20/2021 [facility] DATE CREATED AUTHOR AUTHOR'S ORGANIZ ATION 01/04/2022 [facility] DATE CREATED AUTHOR AUTHOR'S ORGANIZ ATION 03/17/[address] [facility] Patient Care team informatio n (unrecognized section and content) Personnel Name: Bassam Worthington MD Address: Address: [address] [place] [address] [address] [place], [place] [address] FOR RECORDS PERTAINING TO PATIENTS WHO ARE [...] BE BASED ON THE PRIMARY CLINICAL RECORDS. [facility], [facility]. provides no warranty or guarantee of the accuracy or completeness of information in this document.
--- NOTE | 2024-04-29 17:47 | ED.URI1 ---
HPI - URI/Sore Throat General Chief Complaint: Upper Respiratory Infection Stated Complaint: upper respiratory infection Time Seen by Provider: 04/29/24 17:33 Source: patient Limitations: no limitations History of Present Illness HPI Narrative: The patient complains of 4 days of flulike illness with nasal congestion, runny nose, cough, fatigue, muscle aches, decreased energy, nausea without vomiting or diarrhea. No known exposures but she did tell me that she takes her father to [employer] 3 days a week to get groceries and she believes she got it from someone there. Patient has been taking combination Tylenol and ibuprofen pill that she obtained [id number]. She has also tried Pepto-Bismol without any improvement. No urinary symptoms. No skin rash. No headache. Related Data Home Medications ?Medication ?Instructions ?Recorded ?Confirmed ferrous sulfate 325 mg (65 mg 325 mg PO DAILY 03/01/24 04/29/24 iron) tablet simvastatin 20 mg tablet 20 mg PO DAILY 03/01/24 04/29/24 Previous Rx's ?Medication ?Instructions ?Recorded trftxjprwrstfxt-qfiqkjwrdyqhjtw-RR 10 ml PO Q6H PRN cold symptoms 04/29/24 2 mg-30 mg-10 mg/5 mL oral syrup #118 mL (Bromfed DM) ondansetron 4 mg disintegrating 4 mg PO Q6H PRN nausea and 04/29/24 tablet vomiting #20 tabs oseltamivir 75 mg capsule (Tamiflu) 75 mg PO BID 5 days #10 caps 04/29/24 Allergies Allergy/AdvReac Type Severity Reaction Status Date / Time adhesive Allergy Rash Verified 04/29/24 17:35 [facility] Medical History (Updated 04/29/24 @ 18:15 by Palomo Murray) Anemia ?D64.9 - Anemia, unspecified (ICD-10) Anxiety ?F41.9 - Anxiety disorder, unspecified (ICD-10) Asthma ?J45.909 - Unspecified asthma, uncomplicated (ICD-10) Heartburn ?R12 - Heartburn (ICD-10) High cholesterol ?E78.00 - Pure hypercholesterolemia, unspecified (ICD-10) Surgical History (Updated 03/01/24 @ 13:42 by Marisol Gordillo NP) History of dilation and curettage ?Z98.890 - Other specified postprocedural states (ICD-10) History of tubal ligation ?Z98.51 - Tubal ligation status (ICD-10) H/O cervical spinal arthrodesis ?Z98.1 - Arthrodesis status (ICD-10) History of endometrial ablation ?Z98.890 - Other specified postprocedural states (ICD-10) Family History (Updated 03/01/24 @ 13:42 by Marisol Gordillo NP) Other Family history of COPD (chronic obstructive pulmonary disease) Family history of aneurysm Family history of diabetes mellitus Family history of heart disease Family history of hypertension Family history of lung cancer Family history of myocardial infarction Family history of renal failure Family history of seizures Social History (Updated 03/09/24 @ 09:04 by Christin Prasad) Within the past year, how often did you have a drink containing alcohol: monthly or less Smoking status: Former smoker Non-prescribed substance use: cannabis (any form) Previous occupational history: [employer] Highest level of school completed/degree received: high school graduate Little interest or pleasure in doing things: not at all Feeling down, depressed, or hopeless: not at all Exam Narrative Exam Narrative: Nurses notes and vital signs reviewed and patient is not hypoxic. afebrile General: Well-appearing and in no apparent distress. Skin: Warm, dry, no pallor noted. No rash. Head: Normocephalic, atraumatic. Neck: Supple, non-tender. No meningismus Eye: Pupils are equal, round and EOMI. No scleral icterus. Ears, Nose, Mouth, and Throat: TM with retrotympanic fluid but are otherwise clear. Mild, clear rhinorrhea with nasal mucosal hypertrophy Oral mucosa is moist, no posterior oropharynx erythema, uvula is mid-line Cardiovascular: Regular Rate and Rhythm without murmur, gallop or rub. Respiratory: No accessory muscle use or respiratory distress. Lungs are clear to auscultation, no wheezing, rales or rhonchi GI: Abdomen is soft, non-distended. Normal bowel sounds. No tenderness to palpation. No rebound, guarding, or rigidity noted. Neurological: A&O x4. No cranial nerve dysfunction observed. No truncal ataxia. Moves all extremities. Sensation intact. Psychiatric: Cooperative and interactive. Normal mood and affect. Constitutional Vital Signs, click to edit/add: Last Vital Signs Temp 98.8 F 04/29/24 17:36 Pulse 74 04/29/24 17:36 Resp 20 04/29/24 17:36 BP 126/86 04/29/24 17:36 Pulse Ox 96 04/29/24 17:36 O2 Del Method Room Air 04/29/24 17:36 Course Vital Signs Vital signs: Vital Signs Temperature 98.8 F 04/29/24 17:36 Pulse Rate 74 04/29/24 17:36 Respiratory Rate 20 04/29/24 17:36 Blood Pressure 126/86 04/29/24 17:36 Pulse Oximetry 96 04/29/24 17:36 Oxygen Delivery Method Room Air 04/29/24 17:36 Temperature 98.8 F 04/29/24 17:36 Pulse Rate 74 04/29/24 17:36 Respiratory Rate 20 04/29/24 17:36 Blood Pressure 126/86 04/29/24 17:36 Pulse Oximetry 96 04/29/24 17:36 Oxygen Delivery Method Room Air 04/29/24 17:36 MDM - URI/Sore Throat MDM Narrative Medical decision making narrative: pt with viral syndrome causing URI and nausea. No vomiting but appetite is decreased. Given zofran in Ed. Swabbed for RSV, Influenza and Covid. She tested positive for both COVID and influenza A She was discharged home with prescriptions for tamiflu, zofran ODT and bromfed dm syrup. Lab Data Attestation: I reviewed the patient's lab results. Labs: Lab Results 04/29/24 Range/Units 17:40 Influenza Type A Ag Positive A Influenza Type B Ag Negative RSV Antigen Not detected (NOT DETECTE) SARS-CoV-2 Ag (CV2AG) Positive A (NEGATIVE) Discharge Plan Discharge Chief Complaint: Upper Respiratory Infection Clinical Impression: Influenza A, Upper respiratory infection, Viral infection, Nausea, COVID Patient Disposition: Home, Self-Care Time of Disposition Decision: 17:47 Prescriptions / Home Meds: New ejycxvivwnpegna-qrxravjza-EC [Bromfed DM] 2-30-10 mg/5 mL syrup 10 ml PO Q6H PRN (Reason: cold symptoms) Qty: 118 0RF ondansetron 4 mg tablet,disintegrating 4 mg PO Q6H PRN (Reason: nausea and vomiting) Qty: 20 0RF oseltamivir [Tamiflu] 75 mg capsule 75 mg PO BID 5 Days Qty: 10 0RF No Action ferrous sulfate 325 mg (65 mg iron) tablet 325 mg PO DAILY simvastatin 20 mg tablet 20 mg PO DAILY Print Language: Moroccan Instructions: Influenza (ED), Upper Respiratory Infection (ED), Viral Syndrome (ED), COVID-19 (Coronavirus Disease 2019) (ED) Referrals: David Worthington MD [Primary Care Provider] - 1 week
[2024-04-29] MEDS: ONDANSETRON 4 MG RAPDIS TABLET SL (17:53)
[2024-04-29 18:08] LABS: Influenza Virus B Antigen Negative; Internal Control Within Normal Limits; Respiratory Syncytial Virus Not Detected (NOT DETECTE)
[2024-04-29 18:09] LABS: Influenza Virus A Antigen Positive
[2024-04-29 18:10] LABS: Internal Control Within Normal Limits; SARS-CoV-2 Ag POSITIVE (NEGATIVE)
== END 2024-04-29 18:27 | disposition home or self-care (01) ==
PROVIDERS: Emergency Provider Emergency Medicine; PCP Family Medicine
DX: J10.1 Influenza due to other identified influenza virus with other respiratory manifestations (principal); U07.1 COVID-19; R11.0 Nausea; Z98.51 Tubal ligation status; Z87.891 Personal history of nicotine dependence
CPT/HCPCS: 87420; 87804; 87811; 99283; Q0162